=== PATIENT | male | born 1940 | race Two or more races ===

== ENCOUNTER 2022-03-03 11:50 | Inpatient (IN) | payer OTHER, MEDICAID ==
[~2022-03-03] VITALS: Ht 177.8 cm; Wt 79.5 kg
[~2022-03-03 11:50] MED LIST: ASPI1TAB20 PO; ATOR40TA52 PO; CLON0.2T PO; GLIM4TAB42 PO; HYDR12.56 PO; INSLISPI SC; LIS5T PO; NIFE90TA49 PO; OMEP20CA74 PO; POT10T PO
[2022-03-03] MEDS ORDERED: LACTATED RINGER'S 2,300 ML IV ONE (12:30)
[2022-03-03 12:50] LABS: Urine Bacteria NONE SEEN /hpf (None Seen); Urine Blood Negative /uL (Negative); Urine Specific Gravity 1.024 (1.001-1.035); Urine WBC 1 /hpf (0 - 3)
[2022-03-03 13:10] LABS: Basophils # (auto) 0 10 ^3/uL (0-0.2); Basophils % (auto) 0.3 % (0.0-2.0); Eosinophils # (auto) 0 10 ^3/uL (0-0.8); Eosinophils % (auto) 0.3 % (0.0-7.0); Hematocrit 42.9 % (41.0-53.0); Hemoglobin 14.6 g/dL (13.5-17.5); Lymphocytes # (auto) 0.7 10 ^3/uL (0.4-5.4); Mean Corpuscular Hemoglobin 28.9 pg (28.0-32.0); Mean Corpuscular Hgb Conc. 34.1 g/dL (32.0-36.0); Mean Corpuscular Volume 84.8 fL (80.0-100.0); Monocytes # (auto) 0.8 10 ^3/uL (0-1.3); Monocytes % (auto) 8.3 % (0.0-12.0); Neutrophils # (auto) 7.7 10 ^3/uL (1.6-8.6); Neutrophils % (auto) 83.1 % (37.0-80.0); Nucleated Red Blood Cells % 0.1 %; Red Blood Cells 5.06 10^6/uL (4.5-5.90); Red Cell Distribution Width 14.3 % (11.8-14.3); White Blood Cell 9.3 10^3/uL (4.4-10.8)
[2022-03-03 13:24] LABS: INR 1.22 (0.9-1.15); Partial Thromboplastin Time 28.3 sec (23.6-33.0)
[2022-03-03 13:26] LABS: Albumin 2.8 g/dL (3.4-5.0); Potassium 4.3 mmol/L (3.5-5.1)
[2022-03-03 13:29] LABS: BUN/Creatinine Ratio 30.3; Bilirubin, Total 0.5 mg/dL (0.2-1.0); Total Protein 6.1 g/dL (6.4-8.2)
[2022-03-03] MEDS ORDERED: IOHEXOL 350 MG/ML 100ML IJ ONE (14:15)
[2022-03-03] MEDS ORDERED: PROPRANOLOL HCL 1 MG/ML VIAL IV ONE (17:00)
[2022-03-03] MEDS ORDERED: NITROGLYCERIN 0.4 MG SL TAB SL PRN (18:15)
[2022-03-03] MEDS ORDERED: cefTRIAXone 1GM/50ML D5W 50 ML IV ONE (18:15)
[2022-03-03] MEDS ORDERED: MORPHINE SULFATE INJ 2 MG/ml SYRG IV PRN ×2 (18:15)
[2022-03-03] MEDS ORDERED: DEXTROSE (50%) 50ML SYRG IV PRN (18:15)
[2022-03-03] MEDS ORDERED: SOD CHL 0.45% 1,000 ML IV SCH (18:30)
[2022-03-03] MEDS: SODIUM CHLORIDE 0.9% 1,000 ML IV SCH (21:15)
[2022-03-03] MEDS ORDERED: dilTIAZem 25 MG/5 ML VIAL IV ONE ×2 (21:54→22:00)
[2022-03-03] MEDS: InsuLIN REG 1unit/0.01ml Soln (100units/ml) SC SCH (22:00)
[2022-03-03] MEDS: CARVEDILOL 12.5 MG TAB PO SCH (22:00)
[2022-03-03] MEDS ORDERED: ASPirin 325 MG TAB PO ONE (22:00)
[2022-03-03] MEDS: ACCU-CHEK COMFORT CURVE STRIP VI SCH (22:00)
[2022-03-03] MEDS: HEPARIN SODIUM (PORCINE) 5000 UNITS/ML 1ML VIAL SC SCH ×2 (22:00→22:42)
[2022-03-03] MEDS ORDERED: AMIODARONE HCL 150 MG in D5W 5% 100 ML IV ONE (22:30)
[2022-03-03] MEDS ORDERED: AMIODARONE 450mg/250ml AE 250 ML IV SCH (22:30)
[2022-03-03] MEDS ORDERED: AMIODARONE HCL (50 MG/ ML) 3 ML VIAL IV ONE (23:05)
[2022-03-04] MEDS: AMIODARONE HCL 200 MG TAB PO SCH ×3 (02:31→21:32)
[2022-03-04] MEDS ORDERED: AMIODARONE 450mg/250ml AE 250 ML IV SCH (04:30)
[2022-03-04 04:48] VITALS: BP 158/72
[2022-03-04 05:00] VITALS: BP 174/80
[2022-03-04] MEDS: hydrALAZINE HCL 20 MG/ML VL IV PRN ×2 (05:34→16:41)
[2022-03-04] MEDS: ACCU-CHEK COMFORT CURVE STRIP VI SCH ×4 (05:37→21:34)
[2022-03-04] MEDS: InsuLIN REG 1unit/0.01ml Soln (100units/ml) SC SCH ×4 (05:42→21:38)
[2022-03-04] MEDS: SODIUM CHLORIDE 0.9% 1,000 ML IV SCH ×2 (05:50→17:11)
[2022-03-04 08:25] VITALS: BP 146/64
[2022-03-04] MEDS: cefTRIAXone 1GM/50ML D5W 50 ML IV SCH (08:35)
[2022-03-04 08:54] LABS: Basophils # (auto) 0 10 ^3/uL (0-0.2); Basophils % (auto) 0.5 % (0.0-2.0); Eosinophils # (auto) 0.1 10 ^3/uL (0-0.8); Eosinophils % (auto) 1.4 % (0.0-7.0); Hematocrit 43.9 % (41.0-53.0); Hemoglobin 14.7 g/dL (13.5-17.5); Lymphocytes # (auto) 1.1 10 ^3/uL (0.4-5.4); Lymphocytes % (auto) 14.7 % (10.0-50.0); Mean Corpuscular Hemoglobin 28.4 pg (28.0-32.0); Mean Corpuscular Hgb Conc. 33.4 g/dL (32.0-36.0); Mean Corpuscular Volume 84.9 fL (80.0-100.0); Monocytes # (auto) 0.8 10 ^3/uL (0-1.3); Monocytes % (auto) 9.9 % (0.0-12.0); Neutrophils # (auto) 5.7 10 ^3/uL (1.6-8.6); Neutrophils % (auto) 73.5 % (37.0-80.0); Nucleated Red Blood Cells % 0.2 %; Red Blood Cells 5.17 10^6/uL (4.5-5.90); Red Cell Distribution Width 14.2 % (11.8-14.3); White Blood Cell 7.7 10^3/uL (4.4-10.8)
[2022-03-04 08:56] LABS: Albumin 2.8 g/dL (3.4-5.0); Calcium 7.9 mg/dL (8.5-10.1)
[2022-03-04 09:00] LABS: BUN/Creatinine Ratio 29.8
[2022-03-04] MEDS: ASPirin 81 mg TAB PO SCH (09:39)
[2022-03-04] MEDS: ATORVASTATIN 20 MG TAB PO SCH (09:40)
[2022-03-04] MEDS: CARVEDILOL 12.5 MG TAB PO SCH ×2 (09:40→21:33)
[2022-03-04] MEDS: HEPARIN SODIUM (PORCINE) 5000 UNITS/ML 1ML VIAL SC SCH ×2 (09:41→21:34)
[2022-03-04] MEDS ORDERED: ENOXAPARIN SOD 40 MG/0.4 ML SYRINGE SC SCH (10:00)
[2022-03-04] MEDS ORDERED: CITA10TA8 PO (10:32)
[2022-03-04] MEDS ORDERED: HYDR50TA15 PO (10:34)
[2022-03-04] MEDS ORDERED: ISOS60TA24 PO (10:34)
[2022-03-04] MEDS ORDERED: LABE200T7 PO (10:34)
[2022-03-04 12:31] VITALS: BP 139/55
[2022-03-04 16:37] VITALS: BP 161/68
[2022-03-04 21:22] VITALS: BP 166/78
[2022-03-05] MEDS: SODIUM CHLORIDE 0.9% 1,000 ML IV SCH ×2 (04:28→12:11)
[2022-03-05] MEDS: hydrALAZINE HCL 20 MG/ML VL IV PRN ×2 (04:28→16:59)
[2022-03-05 05:00] VITALS: BP 158/65
[2022-03-05] MEDS: AMIODARONE HCL 200 MG TAB PO SCH ×2 (06:17→10:14)
[2022-03-05] MEDS: InsuLIN REG 1unit/0.01ml Soln (100units/ml) SC SCH ×4 (06:18→22:50)
[2022-03-05] MEDS: ACCU-CHEK COMFORT CURVE STRIP VI SCH ×4 (06:18→22:49)
[2022-03-05 08:30] VITALS: BP 194/82
[2022-03-05] MEDS: ASPirin 81 mg TAB PO SCH (09:07)
[2022-03-05] MEDS: cefTRIAXone 1GM/50ML D5W 50 ML IV SCH (09:07)
[2022-03-05] MEDS: CARVEDILOL 12.5 MG TAB PO SCH ×2 (09:08→22:49)
[2022-03-05] MEDS: ATORVASTATIN 20 MG TAB PO SCH (09:08)
[2022-03-05] MEDS: HEPARIN SODIUM (PORCINE) 5000 UNITS/ML 1ML VIAL SC SCH ×2 (09:09→22:51)
[2022-03-05 12:30] VITALS: BP 139/64
[2022-03-05] MEDS ORDERED: LORazepam 2MG/ML-1ML VIAL IV ONE ×2 (13:15)
[2022-03-05 16:30] VITALS: BP 181/82
[2022-03-05] MEDS ORDERED: FUROSEMIDE 20 MG/2 ML VIAL IV ONE (20:15)
[2022-03-05 22:00] VITALS: BP 122/74
[2022-03-06] MEDS: hydrALAZINE HCL 20 MG/ML VL IV PRN (04:27)
[2022-03-06 05:29] VITALS: BP 178/67
[2022-03-06 06:15] VITALS: BP 177/69
[2022-03-06] MEDS: CARVEDILOL 12.5 MG TAB PO SCH ×2 (06:15→11:58)
[2022-03-06] MEDS: InsuLIN REG 1unit/0.01ml Soln (100units/ml) SC SCH ×2 (06:51→12:15)
[2022-03-06] MEDS: ACCU-CHEK COMFORT CURVE STRIP VI SCH ×2 (06:51→12:01)
[2022-03-06 06:58] LABS: Folate (Folic Acid) 20.61 ng/mL (5.38-24)
[2022-03-06 07:05] LABS: Cholesterol 77 mg/dL (< 200); HDL Cholesterol 35 mg/dL (40-59); LDL Cholesterol 37 mg/dL (< 100); Triglycerides 91 mg/dL (< 150)
[2022-03-06 09:18] VITALS: BP 151/54
[2022-03-06] MEDS ORDERED: AMIO200T33 PO (11:31)
[2022-03-06] MEDS ORDERED: CAR3125T PO (11:31)
[2022-03-06] MEDS: AMIODARONE HCL 200 MG TAB PO SCH (11:57)
[2022-03-06] MEDS: ASPirin 81 mg TAB PO SCH (11:57)
[2022-03-06] MEDS: HEPARIN SODIUM (PORCINE) 5000 UNITS/ML 1ML VIAL SC SCH (11:59)
[2022-03-06] MEDS: ATORVASTATIN 20 MG TAB PO SCH (12:02)
[2022-03-06 12:44] VITALS: BP 186/78
[2022-03-06 13:01] VITALS: BP 150/74
== END 2022-03-06 14:15 | disposition home or self-care (01) | DRG 71 ==
LOC: ER 11:50 → EDBD 11:50 → OVERFLOW 18:15 → TELE 03-04 00:26 → TELE-WESTW 03-04 02:00
PROVIDERS: ADMIT Registered Nurse; ATTEND Family Medicine
DX: G93.41 Metabolic encephalopathy (principal); I24.9 Acute ischemic heart disease, unspecified; E87.2 Acidosis; I69.354 Hemiplegia and hemiparesis following cerebral infarction affecting left non-dominant side; N17.9 Acute kidney failure, unspecified; I25.10 Atherosclerotic heart disease of native coronary artery without angina pectoris; I44.7 Left bundle-branch block, unspecified; I48.0 Paroxysmal atrial fibrillation; N18.31 Chronic kidney disease, stage 3a; E11.22 Type 2 diabetes mellitus with diabetic chronic kidney disease; F32.A Depression, unspecified; D72.829 Elevated white blood cell count, unspecified; E05.90 Thyrotoxicosis, unspecified without thyrotoxic crisis or storm; E11.40 Type 2 diabetes mellitus with diabetic neuropathy, unspecified; E78.00 Pure hypercholesterolemia, unspecified; E78.5 Hyperlipidemia, unspecified; F01.50 Vascular dementia, unspecified severity, without behavioral disturbance, psychotic disturbance, mood disturbance, and anxiety; Z20.822 Contact with and (suspected) exposure to COVID-19; I12.9 Hypertensive chronic kidney disease with stage 1 through stage 4 chronic kidney disease, or unspecified chronic kidney disease; I87.2 Venous insufficiency (chronic) (peripheral); R00.0 Tachycardia, unspecified; R94.4 Abnormal results of kidney function studies; R41.0 Disorientation, unspecified; Z79.82 Long term (current) use of aspirin; Z79.899 Other long term (current) drug therapy; Z82.49 Family history of ischemic heart disease and other diseases of the circulatory system; Z83.3 Family history of diabetes mellitus; Z79.4 Long term (current) use of insulin
CPT/HCPCS: 36415; 36600; 70450; 70551; 71045; 71275; 80053; 80061; 81001; 82607; 82746; 82805; 82962; 83036; 83605; 83735; 83880; 84439; 84443; 84484; 85025; 85379; 85610; 85730; 87040; 87081; 87086; 93005; 93306; 93886; 96361; 96365; 96374; 96375; 99291; G0378; J0696; J1815; J7060

== ENCOUNTER 2022-10-26 19:37 | Inpatient (IN) | payer OTHER ==
[~2022-10-26] VITALS: Ht 165.1 cm; Wt 80.0 kg
[~2022-10-26 19:37] MED LIST changes: +AMIO200T33 PO; +CAR3125T PO; +CITA10TA8 PO; -CLON0.2T PO; +HYDR50TA15 PO; +ISOS60TA24 PO; +LABE200T7 PO
[2022-10-26] MEDS ORDERED: IPRATROPIUM BROM 0.5 MG/2.5ML INH SOL NEB ONE (19:45)
[2022-10-26] MEDS ORDERED: BUDESONIDE (INHALATION) 0.5 MG/2 ML NEB NEB ONE (19:45)
[2022-10-26] MEDS ORDERED: ALBUTEROL SULF 2.5 MG/0.5ML(0.5%) NEB SOLN NEB ONE (19:45)
[2022-10-26 20:34] LABS: Basophils # (auto) 0.2 10 ^3/uL (0-0.2); Basophils % (auto) 1.4 % (0.0-2.0); Eosinophils # (auto) 0.1 10 ^3/uL (0-0.8); Eosinophils % (auto) 1.1 % (0.0-7.0); Hematocrit 44.3 % (41.0-53.0); Hemoglobin 14.5 g/dL (13.5-17.5); Lymphocytes # (auto) 0.6 10 ^3/uL (0.4-5.4); Lymphocytes % (auto) 5.1 % (10.0-50.0); Mean Corpuscular Hemoglobin 27.1 pg (28.0-32.0); Mean Corpuscular Hgb Conc. 32.7 g/dL (32.0-36.0); Mean Corpuscular Volume 82.9 fL (80.0-100.0); Monocytes # (auto) 0.6 10 ^3/uL (0-1.3); Monocytes % (auto) 4.9 % (0.0-12.0); Neutrophils # (auto) 11.2 10 ^3/uL (1.6-8.6); Neutrophils % (auto) 87.5 % (37.0-80.0); Nucleated Red Blood Cells % 0.1 %; Red Blood Cells 5.35 10^6/uL (4.5-5.90); Red Cell Distribution Width 14.9 % (11.8-14.3); White Blood Cell 12.8 10^3/uL (4.4-10.8)
[2022-10-26] MEDS ORDERED: DexAMETHasone SOD PHOS 10MG/1ML VIAL INJ IV ONE (20:45)
[2022-10-26] MEDS ORDERED: PIPERACILLIN-TAZOB 3.375GM 100 ML IV ONE (20:45)
[2022-10-26 20:52] LABS: Albumin 3.4 g/dL (3.4-5.0); BUN/Creatinine Ratio 20.4; Calcium 9.3 mg/dL (8.5-10.1); Magnesium 2.1 mg/dL (1.6-2.6)
[2022-10-26 20:55] LABS: Bilirubin, Total 0.5 mg/dL (0.2-1.0); Total Protein 6.9 g/dL (6.4-8.2)
[2022-10-26] MEDS ORDERED: IOHEXOL 350 MG/ML 100ML IJ ONE (21:05)
[2022-10-26] MEDS ORDERED: ACETAMINOPHEN 325 MG TAB PO PRN (22:15)
[2022-10-26] MEDS ORDERED: HYDROcodone-ACET 5/325MG TAB PO PRN (22:15)
[2022-10-26] MEDS ORDERED: SODIUM CHLORIDE 0.9% 1,000 ML IV SCH (22:15)
[2022-10-26] MEDS ORDERED: ONDANSETRON HCL 4 MG/2 ML VIAL IV PRN (22:15)
[2022-10-26] MEDS ORDERED: DEXTROSE (50%) 50ML SYRG IV PRN (22:15)
[2022-10-26] MEDS ORDERED: DOCUSATE SOD 100 MG CAP PO PRN (22:15)
[2022-10-26] MEDS ORDERED: NITROGLYCERIN 0.4 MG SL TAB SL PRN (23:45)
[2022-10-26] MEDS ORDERED: MORPHINE SULFATE INJ 2 MG/ml SYRG IV PRN (23:45)
[2022-10-27] MEDS: hydrALAZINE HCL 20 MG/ML VL IV PRN ×4 (02:01→23:49)
[2022-10-27 02:41] VITALS: BP 156/58
[2022-10-27 03:16] LABS: Urine Bacteria FEW /hpf (None Seen); Urine Blood Negative /uL (Negative); Urine Specific Gravity 1.043 (1.001-1.035); Urine WBC 2 /hpf (0 - 3)
[2022-10-27 05:44] LABS: Basophils # (auto) 0 10 ^3/uL (0-0.2); Basophils % (auto) 0.2 % (0.0-2.0); Eosinophils # (auto) 0 10 ^3/uL (0-0.8); Hematocrit 42.2 % (41.0-53.0); Hemoglobin 13.9 g/dL (13.5-17.5); Lymphocytes # (auto) 0.3 10 ^3/uL (0.4-5.4); Lymphocytes % (auto) 3.4 % (10.0-50.0); Mean Corpuscular Hemoglobin 27.1 pg (28.0-32.0); Mean Corpuscular Volume 82.1 fL (80.0-100.0); Monocytes # (auto) 0.1 10 ^3/uL (0-1.3); Monocytes % (auto) 1.7 % (0.0-12.0); Neutrophils # (auto) 7.9 10 ^3/uL (1.6-8.6); Neutrophils % (auto) 94.7 % (37.0-80.0); Red Blood Cells 5.14 10^6/uL (4.5-5.90); Red Cell Distribution Width 15.1 % (11.8-14.3); White Blood Cell 8.4 10^3/uL (4.4-10.8)
[2022-10-27 06:06] LABS: Potassium 4.1 mmol/L (3.5-5.1)
[2022-10-27 06:09] LABS: Albumin 3.2 g/dL (3.4-5.0); Calcium 9.1 mg/dL (8.5-10.1)
[2022-10-27 06:12] LABS: Bilirubin, Total 0.6 mg/dL (0.2-1.0); Total Protein 7.2 g/dL (6.4-8.2)
[2022-10-27] MEDS: ACCU-CHEK COMFORT CURVE STRIP VI SCH ×4 (07:06→22:48)
[2022-10-27] MEDS: InsuLIN REG 1unit/0.01ml Soln (100units/ml) SC SCH ×4 (07:11→22:53)
[2022-10-27] MEDS ORDERED: cefTRIAXone 1GM/50ML D5W 50 ML IV SCH (09:00)
[2022-10-27] MEDS: FAMOTIDINE (10MG/ML) 2ML VL IV SCH ×2 (10:00→22:51)
[2022-10-27] MEDS: DexAMETHasone SOD PHOS 10MG/1ML VIAL INJ IV SCH (12:24)
[2022-10-27] MEDS: ENOXAPARIN SOD 40 MG/0.4 ML SYRINGE SC SCH (12:25)
[2022-10-27] MEDS: amLODIPine BESYLATE 5 MG TAB PO SCH (22:23)
[2022-10-28] MEDS: ACCU-CHEK COMFORT CURVE STRIP VI SCH ×4 (06:47→21:38)
[2022-10-28] MEDS: InsuLIN REG 1unit/0.01ml Soln (100units/ml) SC SCH ×4 (06:49→21:50)
[2022-10-28] MEDS: amLODIPine BESYLATE 5 MG TAB PO SCH (10:08)
[2022-10-28] MEDS: METOPROLOL TARTRATE 25 MG TAB PO SCH ×2 (10:09→21:51)
[2022-10-28] MEDS: FAMOTIDINE (10MG/ML) 2ML VL IV SCH ×2 (10:09→21:52)
[2022-10-28] MEDS: ENOXAPARIN SOD 40 MG/0.4 ML SYRINGE SC SCH (10:09)
[2022-10-28] MEDS: DexAMETHasone SOD PHOS 10MG/1ML VIAL INJ IV SCH (10:09)
[2022-10-28] MEDS ORDERED: guaiFENesin-DM 100/10mg/5ml SYR PO PRN (13:15)
[2022-10-28] MEDS: IPRATROPIUM BROM 0.5 MG/2.5ML INH SOL NEB PRN ×2 (13:29→21:51)
[2022-10-28] MEDS: ALBUTEROL SULF 2.5 MG/0.5ML(0.5%) NEB SOLN NEB PRN ×2 (13:30→21:51)
[2022-10-28] MEDS ORDERED: ALBUTEROL MEDNEB 2.5 mg/3ml NEB ONE (20:27)
[2022-10-28] MEDS ORDERED: METOPROLOL TARTRATE 1MG/1ML-5ML VIAL IV PRN (23:45)
[2022-10-29 01:23] VITALS: BP 140/77
[2022-10-29] MEDS ORDERED: DOXYCYCLINE 100MG/250ML 250 ML IV SCH (03:00)
[2022-10-29] MEDS: ACCU-CHEK COMFORT CURVE STRIP VI SCH ×3 (06:34→16:46)
[2022-10-29] MEDS: InsuLIN REG 1unit/0.01ml Soln (100units/ml) SC SCH ×3 (06:41→16:57)
[2022-10-29] MEDS ORDERED: ALBUTEROL MEDNEB 2.5 mg/3ml NEB ONE (07:27)
[2022-10-29] MEDS: IPRATROPIUM BROM 0.5 MG/2.5ML INH SOL NEB PRN (07:31)
[2022-10-29] MEDS: ALBUTEROL SULF 2.5 MG/0.5ML(0.5%) NEB SOLN NEB PRN (07:33)
[2022-10-29 08:00] VITALS: BP 180/80
[2022-10-29 08:30] VITALS: BP 134/56
[2022-10-29] MEDS: DexAMETHasone SOD PHOS 10MG/1ML VIAL INJ IV SCH (09:44)
[2022-10-29] MEDS: amLODIPine BESYLATE 5 MG TAB PO SCH (09:44)
[2022-10-29] MEDS: FAMOTIDINE (10MG/ML) 2ML VL IV SCH (09:44)
[2022-10-29] MEDS: ENOXAPARIN SOD 40 MG/0.4 ML SYRINGE SC SCH (09:45)
[2022-10-29] MEDS: METOPROLOL TARTRATE 25 MG TAB PO SCH (09:46)
[2022-10-29] MEDS: hydrALAZINE HCL 20 MG/ML VL IV PRN (12:04)
[2022-10-29 12:30] VITALS: BP 191/80
[2022-10-29] MEDS ORDERED: levoFLOXacin 750MG 150 ML IV SCH (13:45)
[2022-10-29] MEDS ORDERED: METH4PAK PO (13:54)
[2022-10-29] MEDS ORDERED: DEXT1SYP6 PO (13:54)
[2022-10-29] MEDS ORDERED: LEVO750T8 PO (13:54)
[2022-10-29] MEDS ORDERED: ALBUAER3 IN (13:54)
[2022-10-29] MEDS ORDERED: NIFEdipine ER 30 MG TAB PO SCH (14:00)
[2022-10-29 15:13] VITALS: BP 141/61
[2022-10-29 16:30] VITALS: BP 154/80
== END 2022-10-29 18:40 | disposition home health service (06) | DRG 871 ==
LOC: ER 19:37 → EDBD 19:37 → TELE 23:46 → TELE-WESTW 10-28 23:17
PROVIDERS: ADMIT Nurse Practitioner Family; ATTEND Internal Medicine
DX: A41.9 Sepsis, unspecified organism (principal); J96.01 Acute respiratory failure with hypoxia; J44.1 Chronic obstructive pulmonary disease with (acute) exacerbation; J45.901 Unspecified asthma with (acute) exacerbation; J20.9 Acute bronchitis, unspecified; F32.9 Major depressive disorder, single episode, unspecified; E11.9 Type 2 diabetes mellitus without complications; E78.5 Hyperlipidemia, unspecified; I11.0 Hypertensive heart disease with heart failure; I50.9 Heart failure, unspecified; Z20.822 Contact with and (suspected) exposure to COVID-19; Z83.3 Family history of diabetes mellitus; Z86.73 Personal history of transient ischemic attack (TIA), and cerebral infarction without residual deficits; E78.00 Pure hypercholesterolemia, unspecified; D72.829 Elevated white blood cell count, unspecified
CPT/HCPCS: 36415; 36600; 71045; 71275; 80053; 81001; 82805; 82962; 83036; 83605; 83735; 83880; 84484; 85025; 85379; 87040; 87426; 87804; 93005; 93306; 93970; 94640; 96361; 96365; 96375; G0378; J0696; J1100; J1815; J1956; J2543; J3490

== ENCOUNTER 2023-01-30 15:14 | Inpatient (IN) | payer OTHER, MEDICAID ==
[~2023-01-30] VITALS: Ht 157.5 cm; Wt 72.3 kg
[~2023-01-30 15:14] MED LIST changes: +ALBUAER3 IN; +DEXT1SYP6 PO; -HYDR12.56 PO; -LABE200T7 PO; +LEVO750T8 PO; +METH4PAK PO
[2023-01-30] MEDS ORDERED: cloNIDine HCL 0.1 MG TAB PO ONE (16:15)
[2023-01-30 16:21] LABS: Basophils # (auto) 0.1 10 ^3/uL (0-0.2); Basophils % (auto) 0.8 % (0.0-2.0); Eosinophils # (auto) 0 10 ^3/uL (0-0.8); Eosinophils % (auto) 0.1 % (0.0-7.0); Hemoglobin 16.5 g/dL (13.5-17.5); Mean Corpuscular Volume 78.1 fL (80.0-100.0); Neutrophils # (auto) 7.4 10 ^3/uL (1.6-8.6); White Blood Cell 8.9 10^3/uL (4.4-10.8)
[2023-01-30 16:22] LABS: Lymphocytes # (auto) 0.9 10 ^3/uL (0.4-5.4); Lymphocytes % (auto) 10.6 % (10.0-50.0); Mean Corpuscular Hemoglobin 25.8 pg (28.0-32.0); Monocytes # (auto) 0.4 10 ^3/uL (0-1.3); Neutrophils % (auto) 83.5 % (37.0-80.0); Nucleated Red Blood Cells % 0.7 %; Red Cell Distribution Width 16.2 % (11.8-14.3)
[2023-01-30 16:41] LABS: INR 1.09 (0.9-1.15); Partial Thromboplastin Time 29.1 sec (24.6-33.4)
[2023-01-30 16:50] LABS: Albumin 3.8 g/dL (3.4-5.0); BUN/Creatinine Ratio 12.7 (10.0-20.0); Calcium 9.4 mg/dL (8.5-10.1); Potassium 3.8 mmol/L (3.5-5.1)
[2023-01-30 16:53] LABS: Bilirubin, Total 0.5 mg/dL (0.2-1.0); Total Protein 7.8 g/dL (6.4-8.2)
[2023-01-30] MEDS ORDERED: ONDANSETRON HCL 4 MG/2 ML VIAL IV ONE ×2 (17:00→20:45)
[2023-01-30 17:29] LABS: Urine Bacteria NONE SEEN /hpf (None Seen); Urine Blood Negative /uL (Negative); Urine Mucus FEW (None Seen); Urine Specific Gravity 1.015 (1.001-1.035); Urine WBC 4 /hpf (0 - 3)
[2023-01-30] MEDS ORDERED: MORPHINE SULFATE INJ 2 MG/ml SYRG IV ONE (20:00)
[2023-01-30] MEDS ORDERED: HYDROcodone-ACET 5/325MG TAB PO PRN (21:30)
[2023-01-30] MEDS ORDERED: MORPHINE SULFATE INJ 2 MG/ml SYRG IV PRN ×2 (21:30)
[2023-01-30] MEDS ORDERED: ACETAMINOPHEN 325 MG TAB PO PRN (21:30)
[2023-01-30] MEDS ORDERED: NITROGLYCERIN 0.4 MG SL TAB SL PRN (21:30)
[2023-01-30] MEDS ORDERED: DEXTROSE (50%) 50ML SYRG IV PRN (21:30)
[2023-01-30] MEDS ORDERED: ONDANSETRON HCL 4 MG/2 ML VIAL IV PRN (21:30)
[2023-01-30 22:07] LABS: Cholesterol 151 mg/dL (< 200)
[2023-01-30 22:09] LABS: HDL Cholesterol 65 mg/dL (40-59); LDL Cholesterol 74 mg/dL (< 100); Triglycerides 69 mg/dL (< 150)
[2023-01-31] MEDS: cloNIDine HCL 0.1 MG TAB PO SCH ×4 (02:15→22:00)
[2023-01-31] MEDS: AMIODARONE HCL 200 MG TAB PO SCH ×3 (02:15→22:00)
[2023-01-31] MEDS: ACCU-CHEK COMFORT CURVE STRIP VI SCH ×5 (02:22→22:00)
[2023-01-31] MEDS: InsuLIN REG 1unit/0.01ml Soln (100units/ml) SC SCH ×5 (02:22→22:00)
[2023-01-31 05:59] LABS: Basophils # (auto) 0.1 10 ^3/uL (0-0.2); Basophils % (auto) 0.7 % (0.0-2.0); Eosinophils # (auto) 0.1 10 ^3/uL (0-0.8); Eosinophils % (auto) 0.6 % (0.0-7.0); Hematocrit 48.9 % (41.0-53.0); Hemoglobin 16.4 g/dL (13.5-17.5); Lymphocytes % (auto) 19.9 % (10.0-50.0); Mean Corpuscular Hemoglobin 26.1 pg (28.0-32.0); Mean Corpuscular Hgb Conc. 33.5 g/dL (32.0-36.0); Mean Corpuscular Volume 77.9 fL (80.0-100.0); Monocytes # (auto) 1.1 10 ^3/uL (0-1.3); Monocytes % (auto) 10.7 % (0.0-12.0); Neutrophils # (auto) 6.8 10 ^3/uL (1.6-8.6); Neutrophils % (auto) 68.1 % (37.0-80.0); Red Blood Cells 6.28 10^6/uL (4.5-5.90); Red Cell Distribution Width 15.8 % (11.8-14.3); White Blood Cell 9.9 10^3/uL (4.4-10.8)
[2023-01-31 06:17] LABS: Albumin 3.3 g/dL (3.4-5.0); BUN/Creatinine Ratio 14.8 (10.0-20.0); Calcium 9.2 mg/dL (8.5-10.1); Potassium 3.8 mmol/L (3.5-5.1)
[2023-01-31 06:19] LABS: Bilirubin, Total 0.6 mg/dL (0.2-1.0); Total Protein 7.6 g/dL (6.4-8.2)
[2023-01-31] MEDS ORDERED: dilTIAZem 25 MG/5 ML VIAL IV ONE (06:30)
[2023-01-31] MEDS ORDERED: amLODIPine BESYLATE 5 MG TAB PO SCH ×2 (10:00→18:00)
[2023-01-31] MEDS ORDERED: NIFEdipine ER 30 MG TAB PO SCH (10:00)
[2023-01-31] MEDS: CITALOPRAM HYDROBR 20 MG TAB PO SCH (11:22)
[2023-01-31] MEDS: ENOXAPARIN SOD 40 MG/0.4 ML SYRINGE SC SCH (11:22)
[2023-01-31] MEDS: ASPirin-EC 81 mg tab PO SCH (11:23)
[2023-01-31] MEDS: ATORVASTATIN 20 MG TAB PO SCH (11:24)
[2023-01-31] MEDS ORDERED: LOSA25TA38 PO (12:29)
[2023-01-31 18:35] VITALS: BP 186/83
[2023-01-31 19:09] VITALS: BP 170/82
[2023-01-31 20:00] VITALS: BP 141/63
[2023-01-31] MEDS ORDERED: LOS25T (21:14)
[2023-01-31] MEDS ORDERED: [UNRECOGNIZED DRUG - CODE] PO (21:45)
[2023-01-31] MEDS ORDERED: VITA400T4 PO (21:45)
[2023-01-31] MEDS ORDERED: ZINC220C8 PO (21:45)
[2023-01-31] MEDS ORDERED: FERR1TAB36 PO (21:45)
[2023-01-31] MEDS ORDERED: DIGE1CAP PO (21:45)
[2023-01-31] MEDS ORDERED: VITATAB9 OR (21:45)
[2023-01-31] MEDS ORDERED: COBA1000 SL (21:45)
[2023-01-31] MEDS ORDERED: INSU1INJ19 SC (21:45)
[2023-01-31 22:00] VITALS: BP 141/63
[2023-01-31] MEDS ORDERED: CARVEDILOL 3.125 MG TAB PO SCH (22:00)
[2023-02-01 05:00] VITALS: BP 102/50
[2023-02-01] MEDS: cloNIDine HCL 0.1 MG TAB PO SCH ×2 (05:10→14:00)
[2023-02-01] MEDS: ACCU-CHEK COMFORT CURVE STRIP VI SCH ×3 (06:33→17:00)
[2023-02-01] MEDS: InsuLIN REG 1unit/0.01ml Soln (100units/ml) SC SCH ×3 (06:33→17:00)
[2023-02-01 08:55] VITALS: BP 105/57
[2023-02-01] MEDS ORDERED: LOSARTAN POTASSIUM 25 MG TAB PO SCH (10:00)
[2023-02-01] MEDS: ASPirin-EC 81 mg tab PO SCH (10:50)
[2023-02-01] MEDS: AMIODARONE HCL 200 MG TAB PO SCH (10:51)
[2023-02-01] MEDS: CITALOPRAM HYDROBR 20 MG TAB PO SCH (10:51)
[2023-02-01] MEDS: ATORVASTATIN 20 MG TAB PO SCH (10:51)
[2023-02-01] MEDS: ENOXAPARIN SOD 40 MG/0.4 ML SYRINGE SC SCH (10:52)
[2023-02-01] MEDS ORDERED: NIFE90TA49 PO (12:37)
[2023-02-01] MEDS ORDERED: AMLO-496 PO (12:37)
[2023-02-01] MEDS ORDERED: LOS25T PO (12:37)
[2023-02-01 13:00] VITALS: BP 106/50
[2023-02-01 16:29] VITALS: BP 106/50
[2023-02-01 16:48] VITALS: BP 105/47
== END 2023-02-01 17:21 | disposition home or self-care (01) | DRG 305 ==
LOC: EDBD 15:14 → ER 15:14 → TELE 21:36 → TELE-EAST 01-31 18:40
PROVIDERS: ADMIT Registered Nurse; ATTEND Hospitalist
DX: I16.0 Hypertensive urgency (principal); J44.9 Chronic obstructive pulmonary disease, unspecified; I10 Essential (primary) hypertension; E78.00 Pure hypercholesterolemia, unspecified; F32.A Depression, unspecified; E11.9 Type 2 diabetes mellitus without complications; Z86.73 Personal history of transient ischemic attack (TIA), and cerebral infarction without residual deficits; Z88.8 Allergy status to other drugs, medicaments and biological substances
CPT/HCPCS: 36415; 70450; 71045; 80053; 80061; 81001; 82088; 82962; 83036; 83735; 83880; 84244; 84443; 84484; 85025; 85610; 85730; 93005; 96365; 96372; 96375; 96376; 97110; 97116; 97163; 97530; G0378; J1815; J2405

== ENCOUNTER 2025-02-03 12:40 | Inpatient (IN) | payer OTHER, MEDICAID ==
[~2025-02-03] VITALS: Ht 149.9 cm; Wt 74.0 kg
[~2025-02-03 12:40] MED LIST changes: -ALBUAER3 IN; -AMIO200T33 PO; +AMLO1TAB23 PO; -CAR3125T PO; +CLON0.3T PO; +COBA1000 SL; -DEXT1SYP6 PO; +DIGE1CAP PO; +DONE10TA91 PO; +FERR1TAB36 PO; +FLUT1AER17 INH; -GLIM4TAB42 PO; -HYDR50TA15 PO; +INSU1INJ19 SC; +IRBE300T43 PO; +ISOS1TAB29 PO; -ISOS60TA24 PO; -LEVO750T8 PO; -LIS5T PO; +LORA-1123 PO; +LOS25T PO; -METH4PAK PO; -NIFE90TA49 PO; +NIFE90TA75 PO; +OMEG-86 PO; -POT10T PO; +PRAZ2CAP2 PO; +TIRZ15IN SC; +[UNRECOGNIZED DRUG - CODE] PO
[2025-02-03] MEDS: ASPirin 325 MG TAB PO ONE (14:29)
[2025-02-03] MEDS: NITROGLYCERIN 2% OINT 1GM PKG TD ONE (14:30)
[2025-02-03 14:32] LABS: Basophils # (auto) 0 10 ^3/uL (0-0.2); Basophils % (auto) 0.6 % (0.0-2.0); Eosinophils # (auto) 0 10 ^3/uL (0-0.8); Eosinophils % (auto) 0.5 % (0.0-7.0); Hemoglobin 17.8 g/dL (13.5-17.5); Lymphocytes # (auto) 1.1 10 ^3/uL (0.4-5.4); Lymphocytes % (auto) 14.6 % (10.0-50.0); Mean Corpuscular Hemoglobin 28.6 pg (28.0-32.0); Mean Corpuscular Hgb Conc. 33.6 g/dL (32.0-36.0); Mean Corpuscular Volume 85.3 fL (80.0-100.0); Monocytes # (auto) 0.5 10 ^3/uL (0-1.3); Monocytes % (auto) 6.5 % (0.0-12.0); Neutrophils # (auto) 5.8 10 ^3/uL (1.6-8.6); Neutrophils % (auto) 77.8 % (37.0-80.0); Nucleated Red Blood Cells % 0.7 %; Platelet Count (auto) 172 10^3/uL (140-450); Red Blood Cells 6.22 10^6/uL (4.5-5.90); Red Cell Distribution Width 14.8 % (11.8-14.3); White Blood Cell 7.5 10^3/uL (4.4-10.8)
[2025-02-03 14:34] LABS: Chloride 101 mmol/L (98-107); Sodium 137 mmol/L (136-145)
[2025-02-03 14:35] LABS: Anion Gap 9 (5-15); Calcium 10.2 mg/dL (8.7-10.4); Carbon Dioxide 27 mmol/L (20-31)
[2025-02-03 14:40] LABS: BUN/Creatinine Ratio 11.6 (10.0-20.0); Blood Urea Nitrogen 13 mg/dL (9-23)
[2025-02-03 14:43] LABS: Glucose 156 mg/dL (74-106)
--- NOTE | 2025-02-03 14:56 | DVH ---
EXAM: XY CHEST PORTABLE Indication: cp Technique: Single frontal view of the chest was obtained Comparison: XY CHEST PORTABLE on DOS: 01/30/23, CHEST PORTABLE on DOS: 10/26/22, CXRP on DOS: 10/26/22, CXRP on DOS: 03/03/22, CHEST PORTABLE on DOS: 03/03/22 FINDINGS: Lines and Tubes: None Lungs: No focal consolidation. Pleura: No effusion. No pneumothorax. Cardiomediastinal contours: Cardiomegaly. Atherosclerotic vascular calcifications of the thoracic ao rta are noted. Bones: No acute osseous abnormality. IMPRESSION: Cardiomegaly. No acute cardiopulmonary disease.
[2025-02-03] MEDS: cloNIDine HCL 0.1 MG TAB PO ONE (16:16)
--- NOTE | 2025-02-03 16:29 | ED.PDOC ---
History of Present Illness HPI Comments 84M presents to the Er w/ no prior Hx associated to the c/c of CP x 2 days. Pt reports on having N/. PMHx of High Lipids, HTN, DM, CHF, Depression and CVAx6 months ago. Denies chills, fever, N/V/D, SOB No other associated symptoms, modifiers, recent injuries or sick contacts present at this time. Chief Complaint: Chest Pain Time Seen by MD: 14:00 Primary Care Provider: UNKNOWN Reviewed Notes: Nurses Notes, Medications, Allergies Allergies: Coded Allergies: Carvedilol (Verified Allergy, Unknown, 01/30/23) Ezetimibe (Verified Allergy, Unknown, 01/30/23) Hydralazine (Verified Allergy, Unknown, 01/30/23) Isosorbide Nitrate (Verified Allergy, Unknown, 01/30/23) Labetalol (Verified Allergy, Unknown, 01/30/23) Lactulose (Verified Allergy, Unknown, 01/30/23) Lisinopril (Verified Allergy, Unknown, 01/30/23) Home Meds Active Scripts Amlodipine Besylate (Amlodipine Besylate) 10 Mg Tab, 1 TAB PO QPM, #90 TAB 1 Refill Prov:ARLEN LANGE MD 02/01/23 Losartan Potassium (Losartan Potassium) 25 Mg Tab, 25 MG PO DAILY, #60 TAB Prov:ARLEN LANGE MD 02/01/23 Nifedipine (Nifedipine Er) 90 Mg Tab, 1 TAB PO DAILY, #60 TAB 5 Refills Prov:ARLEN LANGE MD 02/01/23 Reported Medications Ferrous Sulfate (Iron (Ferrous Sulfate)) 50 Mg Tab, 50 MG PO, TAB 01/31/23 Cobalamine Combinations (B-12 1000) 1,000 Mcg Sub, 1000 MCG SL, INJ 01/31/23 Digestive Enzymes (Digestive Enzyme) 1 Cap Cap, 1 CAP PO, CAP 01/31/23 Nutritional Supplements (Knott Oil) 1,000 Mg Cap, 1000 MG PO, CAP 01/31/23 Insulin Glargine (Basaglar Kwikpen) 100 Unit/Ml Inj, 13 UNIT SC 01/31/23 Isosorbide Mononitrate (Isosorbide Mononitrate Er) 60 Mg Tab, 1 TAB PO TID, #30 TAB 5 Refills 03/04/22 Citalopram Hydrobromide (Celexa) 10 Mg Tab, 2 TAB PO DAILY, #30 TAB 2 Refills 03/04/22 Insulin Lispro (Human) (Humalog) 100 Mg/Ml Inj, 0 SC TIDWM, INJ 4 UNITS SC BS 180-220 9 UNITS SC BS ABOVE 251 07/22/15 Atorvastatin Calcium (ATORVASTATIN CALCIUM) 40 Mg Tab, 1 TAB PO DAILY, #30 TAB 5 Refills 07/22/15 Aspirin (Aspir-81) 81 Mg Tab, 1 TAB PO DAILY, #30 TAB 5 Refills 07/22/15 Omeprazole (PRILOSEC) 20 Mg Cap, 1 CAP PO DAILY, #90 CAP 1 Refill 07/22/15 Information Source: Patient Mode of Arrival: EMS Severity: Moderate Timing: Days Duration: Since onset, Days Prehospital treatment: None Past Medical History PAST MEDICAL HISTORY: CHF, CVA (6 months ago), Depression, DM, High Lipids, HTN Surgical History: Denies all surgeries Family History Family History: Reviewed,noncontributory to illness, Unknown Social History Smoker: Non-Smoker Alcohol: Denies ETOH Use Drugs: Denies Drug Use Lives In: Home Constitutional: denies: chills, diaphoresis, fatigue, fever, malaise, sweats, weakness, others EENTM: denies: blurred vision, double vision, ear bleeding, ear discharge, ear drainage, ear pain, ear ringing, eye pain, eye redness, hearing loss, mouth pain, mouth swelling, nasal discharge, nose bleeding, nose congestion, nose pain, photophobia, tearing, throat pain, throat swelling, voice changes, others Respiratory: denies: cough, hemoptysis, orthopnea, SOB at rest, shortness of breath, SOB with excertion, stridor, wheezing, others Cardiovascular: reports: chest pain; denies: dizzy spells, diaphoresis, Dyspnea on exertion, edema, irregular heart beat, left arm pain, lightheadedness, palpitations, PND, syncope, others Gastrointestinal: denies: abdomen distended, abdominal pain, blood streaked bowels, constipated, diarrhea, dysphagia, difficulty swallowing, hematemesis, melena, nausea, poor appetite, poor fluid intake, rectal bleeding, rectal pain, vomiting, others Genitourinary: denies: burning, dysuria, flank pain, frequency, hematuria, incontinence, penile discharge, penile sore, pain, testicle pain, testicle swelling, urgency, others Neurological: denies: dizziness, fainting, headache, left sided numbness, left sided weakness, numbness, paresthesia, pre-existing deficit, right sided numbness, right sided weakness, seizure, speech problems, tingling, tremors, we akness, others Musculoskeletal: denies: back pain, gout, joint pain, joint swelling, muscle pain, muscle stiffness, neck pain, others Integumetry: denies: bruises, change in color, change in hair/nails, dryness, laceration, lesions, lumps, rash, wounds, others Allergic/Immunocompromised: denies: Difficulty Healing, Frequent Infections, Hives, Itching, others Hematologic/Lymphatic: denies: anemia, blood clots, easy bleeding, easy bruising, swollen glands, others Endocrine: denies: excessive hunger, excessive sweating, excessive thirst, excessive urination, flushing, intolerance to cold, intolerance to heat, unexplained weight gain, unexplained weight loss, others Psychiatric: denies: anxiety, bipolar disorder, depression, hopeless, panic disorder, schizophrenia, sleepless, suicidal, others All Other Systems: Reviewed and Negative Physical Exam Exam Comments Slurred Speech due from prior CVA General Appearance: No Apparent Distress, Normal HEENT: Normal ENT Inspection, Pharynx Normal, TMs Normal Neck: Full Range of Motion, Non-Tender, Normal, Normal Inspection Respiratory: Chest Non-Tender, Lungs Clear, No Accessory Muscle Use, No Respiratory Distress, Normal Breath Sounds Cardiovascular: No Edema, No JVD, No Murmur, No Gallop, Normal Peripheral Pulses, Regular Rate/Rhythm Breast Exam: Deferred Gastrointestinal: No Organomegaly, Non Tender, No Pulsatile Mass, Normal Bowel Sounds, Soft Genitalia: Deferred Pelvic: Deferred Rectal: Deferred Extremities: No calf tenderness, Normal capillary refill, Normal inspection, Normal range of motion, Non-tender, No pedal edema Musculoskeletal : Apperance: Normal Neurologic: Alert, passenger car inspector II-XII nml as Tested, No Motor Deficits, Normal Affect, Normal Mood, No Sensory Deficits Cerebellar Function: Normal Reflexes: Normal Skin: Dry, Normal Color, Warm Lymphatic: No Adenopathy Was a procedure done? Was a procedure done?: No Differential Dx Considerations may include: ami, unstable angina, chf, chest wall pain, ptx, pe, pneumonia, htn emergency X-Ray, Labs, Meds, VS Vital Signs Date Time Temp Pulse Resp B/P (MAP) Pulse Ox O2 Delivery O2 Flow Rate FiO2 02/03/25 17:00 98.2 95 20 184/96 (125) 97 98.2 02/03/25 17:00 184/96 02/03/25 16:16 212/100 02/03/25 16:00 91 02/03/25 15:30 178/94 02/03/25 15:00 98.0 91 16 185/92 (123) 95 98.0 02/03/25 14:30 208/89 02/03/25 13:46 71 02/03/25 13:17 68 02/03/25 13:15 98.0 68 16 210/83 (125) 91 98.0 02/03/25 13:01 Room Air* 0 21 02/03/25 12:45 60 02/03/25 12:43 98.2 68 18 184/102 (129) 91 98.2 Lab Test 02/03/25 16:54 02/03/25 14:09 02/03/25 13:15 Range/Units Troponin I High Sensitivity Pending 47 43 </=54 ng/L White Blood Count 7.5 4.4-10.8 10^3/uL Red Blood Count 6.22 H 4.5-5.90 10^6/uL Hemoglobin 17.8 H 13.5-17.5 g/dL Hematocrit 53.0 41.0-53.0 % Mean Corpuscular Volume 85.3 80.0-100.0 fL Mean Corpuscular Hemoglobin 28.6 28.0-32.0 pg Mean Corpuscular Hemoglobin Concent 33.6 32.0-36.0 g/dL Red Cell Distribution Width 14.8 H 11.8-14.3 % Platelet Count 172 140-450 10^3/uL Mean Platelet Volume 9.2 6.9-10.8 fL Neutrophils (%) (Auto) 77.8 37.0-80.0 % Lymphocytes (%) (Auto) 14.6 10.0-50.0 % Monocytes (%) (Auto) 6.5 0.0-12.0 % Eosinophils (%) (Auto) 0.5 0.0-7.0 % Basophils (%) (Auto) 0.6 0.0-2.0 % Neutrophils # (Auto) 5.8 1.6-8.6 10 ^3/uL Lymphocytes # (Auto) 1.1 0.4-5.4 10 ^3/uL Monocytes # (Auto) 0.5 0-1.3 10 ^3/uL Eosinophils # (Auto) 0 0-0.8 10 ^3/uL Basophils # (Auto) 0 0-0.2 10 ^3/uL Nucleated Red Blood Cells 0.7 % Sodium Level 137 136-145 mmol/L Potassium Level 4.0 3.5-5.1 mmol/L Chloride Level 101 98-107 mmol/L Carbon Dioxide Level 27 20-31 mmol/L Anion Gap 9 5-15 Blood Urea Nitrogen 13 9-23 mg/dL Creatinine 1.12 0.700-1.30 mg/dL Glomerular Filtration Rate Calc 65 >90 mL/min BUN/Creatinine Ratio 11.6 10.0-20.0 Serum Glucose 156 H 74-106 mg/dL Calcium Level 10.2 8.7-10.4 mg/dL Current Medications Medications (Trade) Dose Ordered Sig/Lucy Route Start Time Stop Time Status Last Admin Nitroglycerin (Nitro-Bid) 1 pkg ONCE ONCE TD 02/03/25 14:15 02/03/25 14:16 DC 02/03/25 14:30 Aspirin 325 mg ONCE ONCE PO 02/03/25 14:15 02/03/25 14:16 DC 02/03/25 14:29 Clonidine HCl (Catapres Tablet) 0.1 mg ONCE ONCE PO 02/03/25 16:15 02/03/25 16:16 DC 02/03/25 16:16 Time of 1ST Reevaluation: 14:30 Reevaluation 1ST: Unchanged Patient Education/Counseling: Diagnosis, Treatment, Prognosis, Need For Follow Up Family Education/Counseling: No Family Present Additional Information The following tests were ordered, and results were reviewed by me: PHA, LAB, XY, EKG Additional Information was gathered from interviewing the following independent historians: 01/30/23 I reviewed and agreed with the following test results read by other providers:XY I discussed treatment and results with medical personnel and: Patient Comprehensive systems review obtained and negative except for what is stated in the HPI. Departure 1 Departure Time of Disposition: 17:24 Impression: Primary Impression: Unstable angina Additional Impression: Hypertensive emergency Disposition: 09 ADMITTED INPATIENT Admit to: ICU Condition: Serious Discharged With: Self Critical Care Note Critical Care Time?: Yes (55 min-critical care time only) Critical care comment: Due to concerns for patients condition deteriorating, the care required my highest level of attention and readiness to intervene. I assessed the patient, reviewed the medical records, ordered the appropriate tests and treatments, then reassessed for results and responsiveness. I communicated with medical personnel and consultants and formulated a plan of care. Total critical care time excludes any procedures Stability Stability form required: No Heart Score Heart Score: Heart Score Response (Comments) Value History Moderate Suspicious 1 EKG Normal 0 Age >65 2 Risk Factors >3 or Hx ASHD 2 Troponin Normal limit 0 Total 5 I personally scribed for JOSE NAVA MD ([email or web address]) on 02/03/25 at 16:29. Electronically submitted by Prashant Santana ([email or web address]). JOSE NAVA MD Feb 03, 2025 16:29
[2025-02-03] MEDS: ONDANSETRON HCL 4 MG/2 ML VIAL ONE (17:37)
[2025-02-03] MEDS: ONDANSETRON HCL 4 MG/2 ML VIAL IV ONE (17:40)
[2025-02-03] MEDS: LABETALOL INJECTION 250 MG in SODIUM CHL 0.9% 200 ML IV ONE (18:21)
--- NOTE | 2025-02-03 18:53 | ECG ---
[facility] Test Date: 2025-02-03 Test Time: 13:44:53 Pat Name: PAMELA SELBY Department: ED Room: 0219T Gender: M Referral Rn: teddy : 1940 Requested By: MELISSA NAVA Order Number: [id number] Reading MD: Hal Haynes Measurements Intervals [place] Rate: 71 P: 29 AR: 216 QRS: -83 QRSD: 148 T: 87 QT: 464 QTc: 505 Interpretive Statements Sinus rhythm Borderline prolonged AR interval RBBB and LAFB Electronically Signed On 02-07-2025 20:16:13 PDT by Hal Haynes Please click the below link to view image of tracing.
--- NOTE | 2025-02-03 18:53 | ECG ---
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
[2025-02-03 19:30] VITALS: PULSE 60; RESP 19; O2SAT 97
[2025-02-03] MEDS ORDERED: DEXTROSE (50%) 50ML SYRG IV PRN (21:15)
[2025-02-03] MEDS ORDERED: LORazepam 0.5 MG TAB PO PRN (21:15)
[2025-02-03] MEDS ORDERED: NITROGLYCERIN 0.4 MG SL TAB SL PRN (21:15)
[2025-02-03] MEDS ORDERED: ONDANSETRON HCL 4 MG/2 ML VIAL IV PRN (21:15)
[2025-02-03] MEDS ORDERED: MORPHINE SULFATE INJ 2 MG/ml SYRG IV PRN ×2 (21:15)
[2025-02-03] MEDS ORDERED: ACETAMINOPHEN 325 MG TAB PO PRN (21:15)
[2025-02-03] MEDS ORDERED: VANCOMYCIN PER PHARMACY 0 MG IV SCH (22:45)
[2025-02-03] MEDS: cefTRIAXone 1GM/50ML D5W 50 ML IV ONE (23:47)
[2025-02-03] MEDS: PRAZOSIN HCL 1 MG CAP PO SCH (23:57)
--- NOTE | 2025-02-04 00:05 | DVH ---
BILATERAL LOWER EXTREMITY VENOUS DOPPLER ULTRASOUND CLINICAL HISTORY: swelling redness TECHNIQUE: Grayscale ultrasound with compression, color Doppler flow imaging with pulsed duplex sonog kel of the bilateral lower extremity deep venous system from the common femoral veins through the p opliteal veins is performed. COMPARISON: BI LOWER DVT on DOS: 10/27/22 FINDINGS: Right common femoral vein: Negative. Right greater saphenous vein: Negative. Right deep femoral vein: Negative. Right femoral vein: Negative. Right popliteal vein: Negative. Left common femoral vein: Negative. Left greater saphenous vein: Negative. Left deep femoral vein: Negative. Left femoral vein: Negative. Left popliteal vein: Negative. Other: Visualized bilateral popliteal trifurcation and posterior tibial veins demonstrate color flow. IMPRESSION: No sonographic evidence of deep venous thrombosis in either lower extremity at this time.
[2025-02-04] MEDS: ACCU-CHEK COMFORT CURVE STRIP VI SCH (00:08)
[2025-02-04] MEDS: InsuLIN REG 1unit/0.01ml Soln (100units/ml) SC SCH (00:08)
--- NOTE | 2025-02-04 00:48 | DVHHP2 ---
KANDI MADISON ACCOUNT SUPERVISOR 02/04/25 0048: History of Present Illness Reason for Visit: Chest pain History of Present Illness 84-year-old male with past medical history of CVA, hypertension, DM presents with complaints of chest pain x1 day. Patient also endorses nausea and vomiting. While in the emergency department patient was noted to have a blood pressure 210/83. Blood pressure did not improve with oral antihypertensives and was started on labetalol drip. Information in the HPI is acquired with the assistance of the patient's daughter who is at the bedside. Patient's daughter also endorses the patient has been experiencing bilateral lower extremity edema. And redness to the right lower extremity has been progressively getting worse. There are no complaints of fevers, chills, palpitations, shortness of breath, abdominal pain. Cardiovascular: CHF, HTN, hyperipidemia Smoke: No ALCOHOL: none Drugs: None Lives: with Family Review of Systems Constitutional: Yes: Malaise; No: Fever, Chills, Sweats, Weakness, Other Eyes: No: Pain, Vision change, Conjunctivae inflammation, Eyelid inflammation, Other, Redness ENT: No: Ear pain, Ear discharge, Nose pain, Nose discharge, Nose congestion, Mouth pain, Mouth swelling, Throat pain, Throat swelling, Other Respiratory: No: Cough, Dry, Shortness of breath, SOB with excertion, Wheezing, Hemoptysis, Pleuritic Pain, Sputum, Wheezing, Other Cardiovascular: Chest Pain, Edema; No: Palpitations, Orthopnea, Paroxysmal Noc. Dyspnea, Lt Headedness, Other Gastrointestinal: Nausea, Vomiting; No: Abdominal Pain, Diarrhea, Constipation, Melena, Hematochezia, Other Genitourinary: No Dysuria, No Frequency, No Incontinence, No Hematuria, No Retention, No Other Musculoskeletal: No: other, neck pain, shoulder pain, arm pain, back pain, hand pain, leg pain, foot pain Skin: No: Rash, Lesions, Jaundice, Bruising, Other Neurological: No: Weakness, Numbness, Incoordination, Change in speech, Confusion, Seizures, Other Allergies: Coded Allergies: Carvedilol (Verified Allergy, Unknown, 01/30/23) Ezetimibe (Verified Allergy, Unknown, 01/30/23) Hydralazine (Verified Allergy, Unknown, 01/30/23) Isosorbide Nitrate (Verified Allergy, Unknown, 01/30/23) Lactulose (Verified Allergy, Unknown, 01/30/23) Lisinopril (Verified Allergy, Unknown, 01/30/23) Medications Current Medications Medications Dose Ordered Sig/Lucy Route Start Time Stop Time Status Last Admin Dose Admin Acetaminophen 650 mg Q6HP PRN PO 02/03/25 21:15 Ondansetron HCl 4 mg Q4HP PRN IV 02/03/25 21:15 Morphine Sulfate 2 mg Q4HPRN PRN IV 02/03/25 21:15 Nitroglycerin 0.4 mg Q5MINP PRN SL 02/03/25 21:15 Hold Morphine Sulfate 2 mg Q30M PRN IV 02/03/25 21:15 Aspirin 81 mg DAILY PO 02/04/25 10:00 Atorvastatin Calcium 40 mg HS PO 02/04/25 22:00 Nifedipine 90 mg DAILY PO 02/04/25 10:00 Prazosin HCl 2 mg TID PO 02/03/25 22:00 02/03/25 23:57 2 MG Donepezil HCl 10 mg DAILY PO 02/04/25 10:00 Lorazepam 0.5 mg BIDP PRN PO 02/03/25 21:15 Diagnostic Test (Pha) 1 strip ACHS 02/03/25 22:00 02/04/25 00:08 1 STRIP Insulin Human Regular ACHS SC 02/03/25 22:00 Dextrose 50 ml UD PRN IV 02/03/25 21:15 Vancomycin HCl 0 ml @ 0 mls/hr UD IV 02/03/25 22:45 UNV Ceftriaxone Sodium 50 ml @ 100 mls/hr DAILY@09 IV 02/05/25 09:00 Clonidine HCl 0.2 mg BID PRN PO 02/03/25 22:45 Exam Vital Signs Vital Signs Date Time Temp Pulse Resp B/P (MAP) Pulse Ox O2 Delivery O2 Flow Rate FiO2 02/03/25 23:57 187/79 02/03/25 23:25 58 02/03/25 20:15 19 97 02/03/25 19:30 Nasal Cannula* 2 28 02/03/25 19:30 97.9 97.9 General Appearance: Alert, Oriented X3, Cooperative HEENT: Atraumatic, PERRLA Respiratory: Clear to auscultation, Normal air movement Cardiovascular: Regular rate, Normal S1, Normal S2 Abdominal: Normal bowel sounds, Soft, No tenderness Extremities: Other (Left lower extremity trace edema. Right lower extremity scabbing with surrounding erythematous changes) Neuro: Other (At baseline s/p cva) Psych/Mental Status: Mood NL Labs/Xrays Labs Test 02/04/25 00:06 02/03/25 16:54 02/03/25 13:15 Range/Units POC Glucose 159 H 70-106 mg/dl Troponin I High Sensitivity 48 </=54 ng/L White Blood Count 7.5 4.4-10.8 10^3/uL Red Blood Count 6.22 H 4.5-5.90 10^6/uL Hemoglobin 17.8 H 13.5-17.5 g/dL Hematocrit 53.0 41.0-53.0 % Mean Corpuscular Volume 85.3 80.0-100.0 fL Mean Corpuscular Hemoglobin 28.6 28.0-32.0 pg Mean Corpuscular Hemoglobin Concent 33.6 32.0-36.0 g/dL Red Cell Distribution Width 14.8 H 11.8-14.3 % Platelet Count 172 140-450 10^3/uL Mean Platelet Volume 9.2 6.9-10.8 fL Neutrophils (%) (Auto) 77.8 37.0-80.0 % Lymphocytes (%) (Auto) 14.6 10.0-50.0 % Monocytes (%) (Auto) 6.5 0.0-12.0 % Eosinophils (%) (Auto) 0.5 0.0-7.0 % Basophils (%) (Auto) 0.6 0.0-2.0 % Neutrophils # (Auto) 5.8 1.6-8.6 10 ^3/uL Lymphocytes # (Auto) 1.1 0.4-5.4 10 ^3/uL Monocytes # (Auto) 0.5 0-1.3 10 ^3/uL Eosinophils # (Auto) 0 0-0.8 10 ^3/uL Basophils # (Auto) 0 0-0.2 10 ^3/uL Nucleated Red Blood Cells 0.7 % Sodium Level 137 136-145 mmol/L Potassium Level 4.0 3.5-5.1 mmol/L Chloride Level 101 98-107 mmol/L Carbon Dioxide Level 27 20-31 mmol/L Anion Gap 9 5-15 Blood Urea Nitrogen 13 9-23 mg/dL Creatinine 1.12 0.700-1.30 mg/dL Glomerular Filtration Rate Calc 65 >90 mL/min BUN/Creatinine Ratio 11.6 10.0-20.0 Serum Glucose 156 H 74-106 mg/dL Calcium Level 10.2 8.7-10.4 mg/dL Assessment/Plan Assessment/Plan Hypertensive emergency Chest pain Cellulitis right lower extremity DM Hx CVA Plan Admin ICU Cardiology consult. Echocardiogram. As needed anti-hypertensive for optimal BP management. Continue labetalol drip. Continue home medication. Blood glucose checks ACHS with regular insulin sliding scale coverage Infectious disease consult. Blood cultures pending. Wound culture pending Broad spectrum IV ABX Gi ppx protonix / DVT ppx lovenox Plan discussed with: Patient, Daughter My Orders Orders - KANDI MADISON NP Procedure Category Date Status Time Admit ADMIT 02/03/25 Transmitted 21:04 Code Status CODE 02/03/25 Transmitted 21:04 Vital Signs ZACHARIAH 02/03/25 In Process 21:04 Review Orders With ZACHARIAH 02/03/25 In Process Adm. 21:04 Consistent DIET 02/04/25 Transmitted Carb(Ccho)Diabetes Breakfast Oxygen By Face Mask RT 02/03/25 Transmitted 21:04 Acetaminophen Tablet PHA 02/03/25 In Process (Tylenol Tablet) 21:15 Notify Of Changes ZACHARIAH 02/03/25 In Process From Base 21:04 Advance Directive ZACHARIAH 02/03/25 In Process 21:04 Echo 2d Mode Cardiac US 02/03/25 Logged DOP 21:04 Basic Metabolic Panel LAB 02/04/25 Logged 05:00 Basic Metabolic Panel LAB 02/05/25 Verified 05:00 Basic Metabolic Panel LAB 02/06/25 Verified 05:00 Basic Metabolic Panel LAB 02/07/25 Verified 05:00 Basic Metabolic Panel LAB 02/08/25 Verified 05:00 Complete Blood Count LAB 02/04/25 Logged 05:00 Complete Blood Count LAB 02/05/25 Verified 05:00 Complete Blood Count LAB 02/06/25 Verified 05:00 Complete Blood Count LAB 02/07/25 Verified 05:00 Complete Blood Count LAB 02/08/25 Verified 05:00 Patient Condition ORDERS 02/03/25 Transmitted 21:04 Allergies ZACHARIAH 02/03/25 In Process 21:04 Ondansetron Hcl PHA 02/03/25 In Process (Zofran) 21:15 Morphine Sulfate PHA 02/03/25 In Process Injection 21:15 Nitroglycerin PHA 02/03/25 In Process Sublingual (Ntrostat 21:15 Morphine Sulfate PHA 02/03/25 In Process Injection 21:15 Stat Ekg For Chest ZACHARIAH 02/03/25 In Process Pain 21:04 Notify Of Changes ZACHARIAH 02/03/25 In Process From Base 21:04 Dental Surgeon For ZACHARIAH 02/03/25 In Process 24 Hours 21:04 Emergency Dysrhythmia ZACHARIAH 02/03/25 In Process Protocol 21:04 Rhythm Strips Once ZACHARIAH 02/03/25 In Process Every Shift 21:04 Oxygen By Nasal RT 02/03/25 Transmitted Cannula 21:04 Aspirin Enteric PHA 02/04/25 In Process Coated Tablet 10:00 Atorvastatin (Lipitor) PHA 02/04/25 In Process 22:00 Nifedipine Er PHA 02/04/25 In Process (Procardia Xl 10:00 Prazosin Hcl Capsule PHA 02/03/25 In Process (Minipres Capsule) 22:00 Donepezil Tablet PHA 02/04/25 In Process (Aricept Tablet) 10:00 Lorazepam Tablet PHA 02/03/25 In Process (Ativan Tablet) 21:15 * Cardiology Consult CONS 02/03/25 Transmitted 21:04 Glucose Blood PHA 02/03/25 In Process (Accu-Chek Comfort 22:00 Insulin R (Human) PHA 02/03/25 In Process (Insulin R) 22:00 Dextrose 50% Syringe PHA 02/03/25 In Process 21:15 Vancomycin Per PHA 02/03/25 Pending Pharmacy 22:45 Bilat Lower Dvt US 02/03/25 Resulted 22:33 * Infectious Miguelito- . CONS 02/03/25 Transmitted Mallad 22:33 Troponin-I Hs LAB 02/04/25 Logged 04:00 Troponin-I Hs LAB 02/04/25 Logged 08:00 Clonidine Hcl Tablet PHA 02/03/25 In Process (Catapres Tablet) 22:45 Ceftriaxone 1gm/50ml PHA 02/05/25 In Process D5w (Rocephin) 09:00 Vancomycin 1.5gm/300ml PHA 02/03/25 In Process 23:30 Blood Culture JAIRO 02/04/25 In Process 00:00 Wound Culture W/ Gs JAIRO 02/04/25 Logged 00:00 Enoxaparin Sodium PHA 02/04/25 Transmitted (Lovenox) 10:00 Pantoprazole PHA 02/04/25 Transmitted (Protonix) 10:00 Date of Service: Feb 04, 2025 Billing Provider: DAVID GALVEZ MD Common Visit Codes: NOT BILLABLE DAVID GALVEZ MD 02/04/25 1555: Review of Systems Allergies: Coded Allergies: Carvedilol (Verified Allergy, Unknown, 01/30/23) Ezetimibe (Verified Allergy, Unknown, 01/30/23) Hydralazine (Verified Allergy, Unknown, 01/30/23) Isosorbide Nitrate (Verified Allergy, Unknown, 01/30/23) Lactulose (Verified Allergy, Unknown, 01/30/23) Lisinopril (Verified Allergy, Unknown, 01/30/23) Additional Comments Additional Comments Additional Comments 84-year-old male with a known history of hypertension, dyslipidemia, previous history of CVA with right-sided deficit, insulin-dependent diabetes mellitus t ype 2, anxiety disorder initially present with the hospital with chest pain found to have 1. Hypertensive urgency 2. NSTEMI type 2 3. Dyslipidemia 4. History of CVA with right-sided deficit 5. Acute kidney injury suspected secondary to vasomotor nephropathy 6. Diabetes mellitus type 2 7. History of CVA with right-sided deficit -titrate nicardipine drip, 2D echo cardiology consultation KANDI MADISON NP Feb 04, 2025 00:48 DAVID GALVEZ MD Feb 04, 2025 15:55
[2025-02-04] MEDS: cloNIDine HCL 0.1 MG TAB PO PRN (03:42)
[2025-02-04 05:33] LABS: Basophils # (auto) 0 10 ^3/uL (0-0.2); Basophils % (auto) 0.4 % (0.0-2.0); Eosinophils # (auto) 0 10 ^3/uL (0-0.8); Eosinophils % (auto) 0.2 % (0.0-7.0); Hematocrit 49.9 % (41.0-53.0); Hemoglobin 16.9 g/dL (13.5-17.5); Lymphocytes # (auto) 1.4 10 ^3/uL (0.4-5.4); Lymphocytes % (auto) 14.3 % (10.0-50.0); Mean Corpuscular Hemoglobin 28.5 pg (28.0-32.0); Mean Corpuscular Hgb Conc. 33.9 g/dL (32.0-36.0); Mean Corpuscular Volume 84.1 fL (80.0-100.0); Monocytes # (auto) 0.8 10 ^3/uL (0-1.3); Monocytes % (auto) 8.3 % (0.0-12.0); Neutrophils # (auto) 7.7 10 ^3/uL (1.6-8.6); Neutrophils % (auto) 76.8 % (37.0-80.0); Nucleated Red Blood Cells % 0.5 %; Platelet Count (auto) 175 10^3/uL (140-450); Red Blood Cells 5.94 10^6/uL (4.5-5.90); Red Cell Distribution Width 14.4 % (11.8-14.3)
[2025-02-04 05:40] LABS: Chloride 101 mmol/L (98-107); Potassium 4.4 mmol/L (3.5-5.1); Sodium 140 mmol/L (136-145)
[2025-02-04 05:41] LABS: Anion Gap 10 (5-15); Calcium 9.7 mg/dL (8.7-10.4); Carbon Dioxide 29 mmol/L (20-31)
[2025-02-04 05:46] LABS: BUN/Creatinine Ratio 13.4 (10.0-20.0); Blood Urea Nitrogen 18 mg/dL (9-23)
[2025-02-04 05:56] LABS: Glucose 141 mg/dL (74-106)
[2025-02-04 08:00] VITALS: PULSE 65; RESP 16; O2SAT 96
--- NOTE | 2025-02-04 09:49 | DVHINCON2 ---
TOR MORENO [facility] 02/04/25 0949: Date Seen: Feb 04, 2025 Referring Physician JAVIER Sarah Reason for Consultation CP, HTN emergency History of Present Illness This is an 84-year-old Togolese-speaking male patient who presents to the emergency room with chief complaint of chest pain. The patient reports that he was experiencing chest pain for three days prior to emergency room arrival. He describes it as unprovoked, constant, pressure-like in nature, midsternal and nonradiating. The patient also mentions an episode of nausea and vomiting. The patient was brought to the emergency room by his daughter/caregiver. While in the emergency room, the patient was noted to have a blood pressure reaching as high as 212/100. Initial twelve lead electrocardiogram reveals normal sinus rhythm with first-degree AV block, right bundle branch block and PVCs. Initial troponin level of 43ng/L with flat trend thereafter. Significant past medical history includes hypertension, hyperlipidemia, CVA with right-sided deficit, and type 2 diabetes mellitus. The patient is a very poor historian. Per records, the patient had an angiogram in 2014 which revealed mild coronary artery disease with no catheter based intervention at that time. 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 Past Medical History Past medical history reviewed. No other significant than mentioned above. Past Surgical History Denies Family History: Family history: Diabetes mellitus G8 MOTHER G8 FATHER Family History Family history reviewed. Social History Denies the use of tobacco, alcohol or illicit drugs. Allergies: Coded Allergies: Carvedilol (Verified Allergy, Unknown, 01/30/23) Ezetimibe (Verified Allergy, Unknown, 01/30/23) Hydralazine (Verified Allergy, Unknown, 01/30/23) Isosorbide Nitrate (Verified Allergy, Unknown, 01/30/23) Lactulose (Verified Allergy, Unknown, 01/30/23) Lisinopril (Verified Allergy, Unknown, 01/30/23) Home Meds Active Scripts Amlodipine Besylate (Amlodipine Besylate) 10 Mg Tab, 1 TAB PO QPM, #90 TAB 1 Refill Prov:ARLEN LANGE MD 02/01/23 Losartan Potassium (Losartan Potassium) 25 Mg Tab, 25 MG PO DAILY, #60 TAB Prov:ARLEN LANGE MD 02/01/23 Nifedipine (Nifedipine Er) 90 Mg Tab, 1 TAB PO DAILY, #60 TAB 5 Refills Prov:ARLEN LANGE MD 02/01/23 Reported Medications Ferrous Sulfate (Iron (Ferrous Sulfate)) 50 Mg Tab, 50 MG PO, TAB 01/31/23 Cobalamine Combinations (B-12 1000) 1,000 Mcg Sub, 1000 MCG SL, INJ 01/31/23 Digestive Enzymes (Digestive Enzyme) 1 Cap Cap, 1 CAP PO, CAP 01/31/23 Nutritional Supplements (Irwin Oil) 1,000 Mg Cap, 1000 MG PO, CAP 01/31/23 Insulin Glargine (Basaglar Kwikpen) 100 Unit/Ml Inj, 13 UNIT SC 01/31/23 Isosorbide Mononitrate (Isosorbide Mononitrate Er) 60 Mg Tab, 1 TAB PO TID, #30 TAB 5 Refills 03/04/22 Citalopram Hydrobromide (Celexa) 10 Mg Tab, 2 TAB PO DAILY, #30 TAB 2 Refills 03/04/22 Insulin Lispro (Human) (Humalog) 100 Mg/Ml Inj, 0 SC TIDWM, INJ 4 UNITS SC BS 180-220 9 UNITS SC BS ABOVE 251 07/22/15 Atorvastatin Calcium (ATORVASTATIN CALCIUM) 40 Mg Tab, 1 TAB PO DAILY, #30 TAB 5 Refills 07/22/15 Aspirin (Aspir-81) 81 Mg Tab, 1 TAB PO DAILY, #30 TAB 5 Refills 07/22/15 Omeprazole (PRILOSEC) 20 Mg Cap, 1 CAP PO DAILY, #90 CAP 1 Refill 07/22/15 Home Meds Home medications reviewed. Current Medications Current Medications Medications (Trade) Dose Ordered Sig/Lucy Route PRN Reason Start Time Stop Time Status Last Admin Acetaminophen (Tylenol Tablet) 650 mg Q6HP PRN PO PAIN SCALE 1-3 OR TEMP>100.4 02/03/25 21:15 Ondansetron HCl (Zofran) 4 mg Q4HP PRN IV NAUSEA / VOMITING 02/03/25 21:15 Morphine Sulfate 2 mg Q4HPRN PRN IV SEVERE PAIN (7-10 PAIN SCALE) 02/03/25 21:15 Nitroglycerin (Ntrostat Sublingual) 0.4 mg Q5MINP PRN SL FOR CHEST PAIN 02/03/25 21:15 Hold Morphine Sulfate 2 mg Q30M PRN IV FOR CHEST PAIN 02/03/25 21:15 Aspirin (Ecotrin Enteric Coated Tablet) 81 mg DAILY PO 02/04/25 10:00 Atorvastatin Calcium (Lipitor) 40 mg HS PO 02/04/25 22:00 Nifedipine (Procardia Xl (Time-Release)) 90 mg DAILY PO 02/04/25 10:00 Prazosin HCl (Minipres Capsule) 2 mg TID PO 02/03/25 22:00 02/04/25 05:10 Donepezil HCl (Aricept Tablet) 10 mg DAILY PO 02/04/25 10:00 Lorazepam (Ativan Tablet) 0.5 mg BIDP PRN PO anxiety 02/03/25 21:15 Diagnostic Test (Pha) (Accu-Chek Comfort Curve T) 1 strip ACHS 02/03/25 22:00 02/04/25 05:16 Insulin Human Regular (InsuLIN R) ACHS SC 02/03/25 22:00 Dextrose 50 ml UD PRN IV Blood Sugar LESS THAN 60 02/03/25 21:15 Vancomycin HCl 0 ml @ 0 mls/hr UD IV 02/03/25 22:45 Ceftriaxone Sodium 50 ml @ 100 mls/hr DAILY@09 IV 02/05/25 09:00 Clonidine HCl (Catapres Tablet) 0.2 mg BID PRN PO SBP > 180 02/03/25 22:45 02/04/25 03:42 Enoxaparin Sodium (Lovenox) 40 mg DAILY SC 02/04/25 10:00 Pantoprazole Sodium (Protonix) 40 mg DAILY IV 02/04/25 10:00 Nicardipine HCl 250 ml @ 50 mls/hr Q5H IV 02/04/25 06:15 02/04/25 06:30 Vancomycin HCl 200 ml @ 160 mls/hr Q24H IV 02/04/25 22:00 Review of Systems Constitutional: No symptom reported Ears, Nose, & Throat: No symptom reported Eyes: No symptom reported Neurological: No symptoms reported Pulmonary/Respiratory: No symptoms reported Cardiovascular: Chest pain Gastrointestinal: Nausea and vomiting Genitourinary: No symptom reported Musculoskeletal: No symptom reported Skin: No symptom reported Psychiatric: No symptom reported Endocrine: No symptom reported Hematologic/Lymphatic: No symptom reported Vital Signs Vital Signs Date Time Temp Pulse Resp B/P (MAP) Pulse Ox O2 Delivery O2 Flow Rate FiO2 02/04/25 08:00 65 16 96 Nasal Cannula* 2 28 02/04/25 08:00 98.6 140/55 (83) 98.6 Physical Exam General Appearance: Cooperative. Well-developed. Well-nourished. No acute distress. Pulmonary/Respiratory: Clear, bilateral breaths sounds. Cardiovascular/Chest: Regular rate and rhythm. Peripheral Pulses: 2+ Radial (R). 2+ Radial (L). 1+ Pedal (R). 1+ Pedal (L) Abdominal Exam: Normal bowel sounds. Ankle Exam: Negative ankle edema Lower extremities: Negative lower extremity edema Neuro/Mental Status: A/OX4, coherent. Thoughts/Psych: Normal thought pattern. Appropriate mood and affect. Good judgment and insight. Appearance: No acute distress. Skin Exam: Discoloration/scabbing to bilateral lower extremities. Skin warm and dry Labs/Diagnostic Data Labs Test 02/04/25 08:47 02/04/25 05:15 02/04/25 04:58 Range/Units Troponin I High Sensitivity 76 *H </=54 ng/L POC Glucose 132 H 70-106 mg/dl White Blood Count 10.0 # 4.4-10.8 10^3/uL Red Blood Count 5.94 H 4.5-5.90 10^6/uL Hemoglobin 16.9 13.5-17.5 g/dL Hematocrit 49.9 41.0-53.0 % Mean Corpuscular Volume 84.1 80.0-100.0 fL Mean Corpuscular Hemoglobin 28.5 28.0-32.0 pg Mean Corpuscular Hemoglobin Concent 33.9 32.0-36.0 g/dL Red Cell Distribution Width 14.4 H 11.8-14.3 % Platelet Count 175 140-450 10^3/uL Mean Platelet Volume 8.9 6.9-10.8 fL Neutrophils (%) (Auto) 76.8 37.0-80.0 % Lymphocytes (%) (Auto) 14.3 10.0-50.0 % Monocytes (%) (Auto) 8.3 0.0-12.0 % Eosinophils (%) (Auto) 0.2 0.0-7.0 % Basophils (%) (Auto) 0.4 0.0-2.0 % Neutrophils # (Auto) 7.7 1.6-8.6 10 ^3/uL Lymphocytes # (Auto) 1.4 0.4-5.4 10 ^3/uL Monocytes # (Auto) 0.8 0-1.3 10 ^3/uL Eosinophils # (Auto) 0 0-0.8 10 ^3/uL Basophils # (Auto) 0 0-0.2 10 ^3/uL Nucleated Red Blood Cells 0.5 % Sodium Level 140 136-145 mmol/L Potassium Level 4.4 3.5-5.1 mmol/L Chloride Level 101 98-107 mmol/L Carbon Dioxide Level 29 20-31 mmol/L Anion Gap 10 5-15 Blood Urea Nitrogen 18 9-23 mg/dL Creatinine 1.34 H 0.700-1.30 mg/dL Glomerular Filtration Rate Calc 52 >90 mL/min BUN/Creatinine Ratio 13.4 10.0-20.0 Serum Glucose 141 H 74-106 mg/dL Calcium Level 9.7 8.7-10.4 mg/dL Assessment Chest pain, rule out coronary ischemia NSTEMI Hypertensive emergency Chronic HFpEF, NYHA class III Hyperlipidemia CVA with right-sided deficit Type 2 diabetes mellitus Acute kidney injury Plan/Recommendation We will continue with the following plan/recommendations (Dr. Avendano): * Transthoracic echocardiogram reveals EF 50-55% with moderate diastolic dysfunction * Aggressive blood pressure control * Lipid-lowering agent * DVT/VTE prophylaxis * Nuclear stress test * Close Cardiac surveillance Patient seen and examined at bedside with DR. Avendano. Thank you for allowing us to care for this patient. Please call with any questions or concerns. C ritical care time spent: 40 minutes This medical document was created using an electronic medical record system with voice recognition software and computerized dictation system. Although this document has been carefully reviewed, there might still be some phonetic and typographical errors. Occasional wrong-word or ``sound-alike substitutions may have occurred due to the inherent limitations of voice recognition software. These areas are purely typographical due to imperfections of the software programs and do not reflect any compromise in the patient's medical care. Please read the chart carefully and recognize, using context, where these substitutions have occurred. Plan discussed with: Patient NYHA Physical activity limitations: Class3(Marked) ordinary (activity causes symtoms) Date of Service: Feb 04, 2025 Billing Provider: TOR MORENO Cardiology Common Codes: [id number] INP/OBS CARE (High) Cardiology Consultation Codes: [id number] CONSULT <45MIN ROLANDO AVENDANO DO 02/04/25 2328: Date Seen: Feb 04, 2025 Family History: Family history: Diabetes mellitus G8 MOTHER G8 FATHER Allergies: Coded Allergies: Carvedilol (Verified Allergy, Unknown, 01/30/23) Ezetimibe (Verified Allergy, Unknown, 01/30/23) Hydralazine (Verified Allergy, Unknown, 01/30/23) Isosorbide Nitrate (Verified Allergy, Unknown, 01/30/23) Lactulose (Verified Allergy, Unknown, 01/30/23) Lisinopril (Verified Allergy, Unknown, 01/30/23) Home Meds Active Scripts Amlodipine Besylate (Amlodipine Besylate) 10 Mg Tab, 1 TAB PO QPM, #90 TAB 1 Refill Prov:ARLEN LANGE MD 02/01/23 Losartan Potassium (Losartan Potassium) 25 Mg Tab, 25 MG PO DAILY, #60 TAB Prov:ARLEN LANGE MD 02/01/23 Nifedipine (Nifedipine Er) 90 Mg Tab, 1 TAB PO DAILY, #60 TAB 5 Refills Prov:ARLEN LANGE MD 02/01/23 Reported Medications Ferrous Sulfate (Iron (Ferrous Sulfate)) 50 Mg Tab, 50 MG PO, TAB 01/31/23 Cobalamine Combinations (B-12 1000) 1,000 Mcg Sub, 1000 MCG SL, INJ 01/31/23 Digestive Enzymes (Digestive Enzyme) 1 Cap Cap, 1 CAP PO, CAP 01/31/23 Nutritional Supplements (Irwin Oil) 1,000 Mg Cap, 1000 MG PO, CAP 01/31/23 Insulin Glargine (Basaglar Kwikpen) 100 Unit/Ml Inj, 13 UNIT SC 01/31/23 Isosorbide Mononitrate (Isosorbide Mononitrate Er) 60 Mg Tab, 1 TAB PO TID, #30 TAB 5 Refills 03/04/22 Citalopram Hydrobromide (Celexa) 10 Mg Tab, 2 TAB PO DAILY, #30 TAB 2 Refills 5/22/22 Insulin Lispro (Human) (Humalog) 100 Mg/Ml Inj, 0 SC TIDWM, INJ 4 UNITS SC BS 180-220 9 UNITS SC BS ABOVE 251 07/22/15 Atorvastatin Calcium (ATORVASTATIN CALCIUM) 40 Mg Tab, 1 TAB PO DAILY, #30 TAB 5 Refills 07/22/15 Aspirin (Aspir-81) 81 Mg Tab, 1 TAB PO DAILY, #30 TAB 5 Refills 07/22/15 Omeprazole (PRILOSEC) 20 Mg Cap, 1 CAP PO DAILY, #90 CAP 1 Refill 07/22/15 Plan/Recommendation The patient was discussed, seen, and examined with Tor Moreno NP. I agree with her Assessment and Plan, which was formulated with me. Plan discussed with: Patient Date of Service: Feb 04, 2025 Billing Provider: ROLANDO AVENDANO DO Cardiology Common Codes: [id number] INP/OBS CARE (High) TOR MORENO SENIOR MEDICAL TECHNOLOGIST Feb 04, 2025 09:49 ROLANDO AVENDANO DO Feb 04, 2025 23:28
[2025-02-04 11:06] LABS: Magnesium 1.7 mg/dL (1.6-2.6)
[2025-02-04] MEDS: PANTOPRAZOLE 40 MG/10 ML VIAL INJ IV SCH (11:37)
[2025-02-04] MEDS: DONEPEZIL HYDROCHLORIDE 5 MG TAB PO SCH (11:38)
[2025-02-04] MEDS: ENOXAPARIN SOD 40 MG/0.4 ML SYRINGE SC SCH (11:38)
[2025-02-04] MEDS: NIFEdipine ER 30 MG TAB PO SCH (11:39)
[2025-02-04] MEDS: ASPirin-EC 81 mg tab PO SCH (11:42)
--- NOTE | 2025-02-04 12:28 | DVHINCON2 ---
Date of service: Feb 04, [address] Herring Reason for Consultation Cellulitis History of Present Illness Patient is a 84-year-old male presents to the hospital with complaints of chest pain for the past 1 day. He describes the pain as unprovoked, constant, pressur e-like in nature, midsternal and nonradiating. Patient also reports nausea and vomiting. While in the emergency department patient was noted to have a blood pressure 210/83. Blood pressure did not improve with oral antihypertensives and was s tarted on labetalol drip. As per report, patient has been experiencing bilateral lower extremity edema and redness to the right lower extremity has been progressively getting worse. There are no complaints of fevers, chills, palpitations, shortness of breath, abdominal pain. Past Medical History Patient's past medical history is significant for CHF, HTN and hyperlipidemia Family History: Family history: Diabetes mellitus G8 MOTHER G8 FATHER Social History Smoke: No ALCOHOL: none Drugs: None Lives: with Family Allergies: Coded Allergies: Carvedilol (Verified Allergy, Unknown, 01/30/23) Ezetimibe (Verified Allergy, Unknown, 01/30/23) Hydralazine (Verified Allergy, Unknown, 01/30/23) Isosorbide Nitrate (Verified Allergy, Unknown, 01/30/23) Lactulose (Verified Allergy, Unknown, 01/30/23) Lisinopril (Verified Allergy, Unknown, 01/30/23) Home Meds Active Scripts Nifedipine (Nifedipine Er) 90 Mg Tab, 1 TAB PO DAILY, #60 TAB 5 Refills Prov:ARLEN LANGE MD 02/01/23 Reported Medications Niodgmeydif-Tlmuabuzchtc-Clbgy (Trelegy Ellipta 200-62.5-25 Mcg/INH) 1 Aer Aer, 1 PUFF INH DAILY for 30 Days, #60 02/05/25 Donepezil Hydrochloride (Donepezil Hydrochloride) 10 Mg Tab, 1 TAB PO DAILY for 90 Days, #90 25 Yazkt-3-Usqj Ethyl Esters (Ddwcw-7-Ufjb Ethyl Esters) 1 Gm Cap, 1 CAP PO BID for 90 Days, #180 02/05/25 Lorazepam (Lorazepam) 1 Mg Tab, 1 TAB PO DAILYP for 15 Days, #15 02/05/25 Prazosin HCl (Prazosin Hydrochloride) 2 Mg Cap, 1 CAP PO TID for 30 Days, #90 02/05/25 Irbesartan (IRBESARTAN) 300 Mg Tab, 1 TAB PO DAILY for 30 Days, #30 02/05/25 Clonidine Hydrochloride (Clonidine Hcl) 0.3 Mg Tab, 1 TAB PO TID for 90 Days, #270 02/05/25 Tirzepatide (Mounjaro) 15 Mg/0.5 Ml Inj, 15 MG SC QWEEKLY for 28 Days, #2 02/05/25 Cobalamine Combinations (B-12 1000) 1,000 Mcg Sub, 1000 MCG SL, INJ 01/31/23 Nutritional Supplements (Mcfall Oil) 1,000 Mg Cap, 1000 MG PO, CAP 01/31/23 Insulin Glargine (Basaglar Kwikpen) 100 Unit/Ml Inj, 13 UNIT SC 01/31/23 Insulin Lispro (Human) (Humalog) 100 Mg/Ml Inj, 0 SC TIDWM, INJ 4 UNITS SC BS 180-220 9 UNITS SC BS ABOVE 251 07/22/15 Aspirin (Aspir-81) 81 Mg Tab, 1 TAB PO DAILY, #30 TAB 5 Refills 07/22/15 Discontinued Reported Medications Clonidine Hydrochloride (Clonidine Hcl) 0.2 Mg Tab, 0.3 MG PO BID, TAB 02/05/25 Current Medications Current Medications Medications (Trade) Dose Ordered Sig/Lucy Route PRN Reason Start Time Stop Time Status Last Admin Acetaminophen (Tylenol Tablet) 650 mg Q6HP PRN PO PAIN SCALE 1-3 OR TEMP>100.4 02/03/25 21:15 Ondansetron HCl (Zofran) 4 mg Q4HP PRN IV NAUSEA / VOMITING 02/03/25 21:15 Morphine Sulfate 2 mg Q4HPRN PRN IV SEVERE PAIN (7-10 PAIN SCALE) 02/03/25 21:15 Nitroglycerin (Ntrostat Sublingual) 0.4 mg Q5MINP PRN SL FOR CHEST PAIN 02/03/25 21:15 Hold Morphine Sulfate 2 mg Q30M PRN IV FOR CHEST PAIN 02/03/25 21:15 Aspirin (Ecotrin Enteric Coated Tablet) 81 mg DAILY PO 02/04/25 10:00 02/04/25 11:42 Atorvastatin Calcium (Lipitor) 40 mg HS PO 02/04/25 22:00 Nifedipine (Procardia Xl (Time-Release)) 90 mg DAILY PO 02/04/25 10:00 02/04/25 11:39 Prazosin HCl (Minipres Capsule) 2 mg TID PO 02/03/25 22:00 02/04/25 05:10 Donepezil HCl (Aricept Tablet) 10 mg DAILY PO 02/04/25 10:00 02/04/25 11:38 Lorazepam (Ativan Tablet) 0.5 mg BIDP PRN PO anxiety 02/03/25 21:15 Diagnostic Test (Pha) (Accu-Chek Comfort Curve T) 1 strip ACHS 02/03/25 22:00 02/04/25 05:16 Insulin Human Regular (InsuLIN R) ACHS SC 02/03/25 22:00 Dextrose 50 ml UD PRN IV Blood Sugar LESS THAN 60 02/03/25 21:15 Vancomycin HCl 0 ml @ 0 mls/hr UD IV 02/03/25 22:45 Ceftriaxone Sodium 50 ml @ 100 mls/hr DAILY@09 IV 02/05/25 09:00 Clonidine HCl (Catapres Tablet) 0.2 mg BID PRN PO SBP > 180 02/03/25 22:45 02/04/25 03:42 Enoxaparin Sodium (Lovenox) 40 mg DAILY SC 02/04/25 10:00 02/04/25 11:38 Pantoprazole Sodium (Protonix) 40 mg DAILY IV 02/04/25 10:00 02/04/25 11:37 Nicardipine HCl 250 ml @ 50 mls/hr Q5H IV 02/04/25 06:15 02/04/25 10:50 Vancomycin HCl 200 ml @ 160 mls/hr Q24H IV 02/04/25 22:00 Review of Systems Constitutional: Yes: Malaise; No: Fever, Chills, Sweats, Weakness, Other Eyes: No: Pain, Vision change, Conjunctivae inflammation, Eyelid inflammation, Other, Redness ENT: No: Ear pain, Ear discharge, Nose pain, Nose discharge, Nose congestion, Mouth pain, Mouth swelling, Throat pain, Throat swelling, Other Respiratory: No: Cough, Dry, Shortness of breath, SOB with excertion, Wheezing, Hemoptysis, Pleuritic Pain, Sputum, Wheezing, Other Cardiovascular: Chest Pain, Edema; No: Palpitations, Orthopnea, Paroxysmal Noc. Dyspnea, Lt Headedness, Other Gastrointestinal: Nausea, Vomiting; No: Abdominal Pain, Diarrhea, Constipation, Melena, Hematochezia, Other Genitourinary: No Dysuria, No Frequency, No Incontinence, No Hematuria, No Retention, No Other Musculoskeletal: No: other, neck pain, shoulder pain, arm pain, back pain, hand pain, leg pain, foot pain Skin: No: Rash, Lesions, Jaundice, Bruising, Other Neurological: No: Weakness, Numbness, Incoordination, Change in speech, Confusion, Seizures, Other Vital Signs Vital Signs Date Time Temp Pulse Resp B/P (MAP) Pulse Ox O2 Delivery O2 Flow Rate FiO2 02/04/25 11:39 137/53 02/04/25 10:50 66 02/04/25 08:00 16 96 Nasal Cannula* 2 28 02/04/25 08:00 98.6 98.6 Physical Exam General Appearance: Alert, Oriented X3, Cooperative HEENT: Atraumatic, PERRLA Respiratory: Clear to auscultation, Normal air movement Cardiovascular: Regular rate, Normal S1, Normal S2 Abdominal: Normal bowel sounds, Soft, No tenderness Extremities: Other (Left lower extremity trace edema. Right lower extremity scabbing with surrounding erythematous changes) Neuro: Other (At baseline s/p cva) Psych/Mental Status: Mood NL Labs/Diagnostic Data Labs Test 02/04/25 08:47 02/04/25 05:15 02/04/25 04:58 Range/Units Magnesium Level 1.7 1.6-2.6 mg/dL Troponin I High Sensitivity 76 *H </=54 ng/L Triglycerides Level 111 < 150 mg/dL Cholesterol Level 230 H < 200 mg/dL LDL Cholesterol 157 H < 100 mg/dL HDL Cholesterol 57 40-59 mg/dL POC Glucose 132 H 70-106 mg/dl White Blood Count 10.0 # 4.4-10.8 10^3/uL Red Blood Count 5.94 H 4.5-5.90 10^6/uL Hemoglobin 16.9 13.5-17.5 g/dL Hematocrit 49.9 41.0-53.0 % Mean Corpuscular Volume 84.1 80.0-100.0 fL Mean Corpuscular Hemoglobin 28.5 28.0-32.0 pg Mean Corpuscular Hemoglobin Concent 33.9 32.0-36.0 g/dL Red Cell Distribution Width 14.4 H 11.8-14.3 % Platelet Count 175 140-450 10^3/uL Mean Platelet Volume 8.9 6.9-10.8 fL Neutrophils (%) (Auto) 76.8 37.0-80.0 % Lymphocytes (%) (Auto) 14.3 10.0-50.0 % Monocytes (%) (Auto) 8.3 0.0-12.0 % Eosinophils (%) (Auto) 0.2 0.0-7.0 % Basophils (%) (Auto) 0.4 0.0-2.0 % Neutrophils # (Auto) 7.7 1.6-8.6 10 ^3/uL Lymphocytes # (Auto) 1.4 0.4-5.4 10 ^3/uL Monocytes # (Auto) 0.8 0-1.3 10 ^3/uL Eosinophils # (Auto) 0 0-0.8 10 ^3/uL Basophils # (Auto) 0 0-0.2 10 ^3/uL Nucleated Red Blood Cells 0.5 % Sodium Level 140 136-145 mmol/L Potassium Level 4.4 3.5-5.1 mmol/L Chloride Level 101 98-107 mmol/L Carbon Dioxide Level 29 20-31 mmol/L Anion Gap 10 5-15 Blood Urea Nitrogen 18 9-23 mg/dL Creatinine 1.34 H 0.700-1.30 mg/dL Glomerular Filtration Rate Calc 52 >90 mL/min BUN/Creatinine Ratio 13.4 10.0-20.0 Serum Glucose 141 H 74-106 mg/dL Hemoglobin A1c 6.1 H <5.7 % A1C Calcium Level 9.7 8.7-10.4 mg/dL B-Type Natriuretic Peptide 334.04 0-100 pg/mL Thyroid Stimulating Hormone (TSH) 0.32 L 0.55-4.78 uIU/mL Assessment Patient is a 84-year-old male with Cellulitis of left leg Bilateral leg edema Chest pain ACS rule out Prediabetes Recommendations: Dc Vancomycin/ Ceftriaxone Start IV Cefazolin WBC normal Blood culture is preliminary, will follow Antibiotic status: Vancomycin IV [Started on - Ongoing] Cefazolin IV [Started on 02/03] 02/03, [Personally reviewed], Chest x-ray showed Cardiomegaly. No pneumonia 02/03, Extremity venous study showed No sonographic evidence of deep venous thrombosis in either lower extremity at this time. Plan discussed with Dr. Herring Thank you for consult. Plan discussed with: AMARJIT Mcallister MD Feb 04, 2025 12:28
--- NOTE | 2025-02-04 14:52 | DVHSR ---
APPROVED REPORT EXAM: LIMITED Two-dimensional and M-mode echocardiogram with Doppler and color Doppler. Blood Pressure: 171/64 mmHg INDICATION Chest Pain HTN EMERGENCY RISK FACTORS Height: 5' 8", Weight: 150 DIMENSIONS LVDd4.5 (3.8-5.7cm)LA (2D)3.8 (1.9-4.0cm)Aortic Root3.4 (2.0-3.7cm) LVDs2.7 (2.5-4.0cm)LA (MM) (1.9-4.0cm)Aortic Cusp Exc1.9 (1.5-2.0cm) EF (%) 70.0 (55-70%)Rt. Atrium3.4 (1.9-4.0cm)Asc. Aorta cm IVSd1.8 (0.7-1.1cm)RV (D) (1.8-2.4cm) PWd1.7 (0.7-1.1cm) Mitral Valve MitralMitral Stenosis E wave0.70m/sMV Mean GR.mmHg A wave1.10m/sMV Peak GR.mmHg E/A ratio0.62D MVAcm2 Aortic Valve Aortic ValveAortic Stenosis V11.00m/Ana Mean GR.6mmHg V21.50m/Ana Peak GR.10mmHg LVOT Diameter2.5 (1.8-2.4cm)Doppler AVA3.27cm2 AI P 1/2 Rsre239.10ms Pulmonic Valve V21.70m/s Other Information Quality : Technically LimitedRhythm : Technically limited study due to patients breathing. Conclusion Technically difficult study with poor cardiac visualization LVEF likely grossly normal 50-55%. There is yagw-uy-nyiuxhhu left ventricular hypertrophy. Moderate diastolic dysfunction Right ventricular size and function grossly normal
[2025-02-04] MEDS: ceFAZolin 2 GM/D5W50ml 50 ML IV ONE (16:35)
[2025-02-04] MEDS ORDERED: VANCOMYCIN 1GM/200ML PM 200 ML IV SCH (22:00)
[2025-02-04] MEDS: ceFAZolin 2 GM/D5W50ml 50 ML IV SCH (22:00)
[2025-02-04 23:15] VITALS: BP 175/77; PULSE 87; RESP 17; TEMP 98.6; O2SAT 94
[2025-02-04 23:27] VITALS: BP 175/77; PULSE 110; PULSE 87; RESP 17; TEMP 98.6; O2SAT 94
[2025-02-04] MEDS: ATORVASTATIN 20 MG TAB PO SCH (23:56)
[2025-02-05] VITALS (8 sets, daily range): BP systolic 97–201; BP diastolic 57–89; PULSE 55–155; RESP 16–18; TEMP 98.2–98.7; O2SAT 91–100
[2025-02-05] MEDS ORDERED: CLON0.2T PO (00:37)
[2025-02-05] MEDS ORDERED: LABETALOL HCL 20 MG/4 ML VL IV PRN (02:30)
[2025-02-05 08:09] LABS: Basophils # (auto) 0 10 ^3/uL (0-0.2); Basophils % (auto) 0.6 % (0.0-2.0); Eosinophils # (auto) 0 10 ^3/uL (0-0.8); Eosinophils % (auto) 0.7 % (0.0-7.0); Hematocrit 48.9 % (41.0-53.0); Hemoglobin 16.4 g/dL (13.5-17.5); Lymphocytes # (auto) 1.2 10 ^3/uL (0.4-5.4); Lymphocytes % (auto) 16.8 % (10.0-50.0); Mean Corpuscular Hemoglobin 28.4 pg (28.0-32.0); Mean Corpuscular Hgb Conc. 33.6 g/dL (32.0-36.0); Mean Corpuscular Volume 84.5 fL (80.0-100.0); Monocytes # (auto) 0.6 10 ^3/uL (0-1.3); Monocytes % (auto) 8.1 % (0.0-12.0); Neutrophils # (auto) 5.1 10 ^3/uL (1.6-8.6); Neutrophils % (auto) 73.8 % (37.0-80.0); Nucleated Red Blood Cells % 0.6 %; Platelet Count (auto) 135 10^3/uL (140-450); Red Blood Cells 5.78 10^6/uL (4.5-5.90); Red Cell Distribution Width 14.7 % (11.8-14.3); White Blood Cell 6.9 10^3/uL (4.4-10.8)
[2025-02-05 08:20] LABS: Anion Gap 10 (5-15); Carbon Dioxide 31 mmol/L (20-31); Chloride 100 mmol/L (98-107); Sodium 141 mmol/L (136-145)
[2025-02-05 08:22] LABS: Calcium 9.7 mg/dL (8.7-10.4)
[2025-02-05 08:26] LABS: BUN/Creatinine Ratio 18.3 (10.0-20.0); Blood Urea Nitrogen 22 mg/dL (9-23)
[2025-02-05 08:30] LABS: Glucose 153 mg/dL (74-106)
[2025-02-05] MEDS ORDERED: cefTRIAXone 1GM/50ML D5W 50 ML IV SCH (09:00)
--- NOTE | 2025-02-05 09:59 | DVHPN2 ---
Progress Note - Dictate Date Seen: Feb 05, 2025 Medical Necessity Reason Pt with a Central, PICC or Fol: No Subjective pending Lexiscan results at bedside vital signs Vital Sign Date Time Temp Pulse Resp B/P (MAP) Pulse Ox O2 Delivery O2 Flow Rate FiO2 02/05/25 05:39 99/56 02/05/25 05:00 98.5 105 18 94 98.5 02/04/25 23:27 Room Air* 1 N/A Nasal Cannula* Total Intake and Output 02/04/25 02/04/25 02/05/25 15:00 23:00 07:00 Intake Total 200 ml 50 ml 0 ml Balance 200 ml 50 ml 0 ml medications Current Medications Medications Dose Ordered Sig/Lucy Route Start Time Stop Time Status Last Admin Dose Admin Acetaminophen 650 mg Q6HP PRN PO 02/03/25 21:15 Ondansetron HCl 4 mg Q4HP PRN IV 02/03/25 21:15 Morphine Sulfate 2 mg Q4HPRN PRN IV 02/03/25 21:15 Nitroglycerin 0.4 mg Q5MINP PRN SL 02/03/25 21:15 Hold Morphine Sulfate 2 mg Q30M PRN IV 02/03/25 21:15 Aspirin 81 mg DAILY PO 02/04/25 10:00 02/04/25 11:42 81 MG Atorvastatin Calcium 40 mg HS PO 02/04/25 22:00 02/04/25 23:56 40 MG Nifedipine 90 mg DAILY PO 02/04/25 10:00 02/04/25 11:39 90 MG Prazosin HCl 2 mg TID PO 02/03/25 22:00 02/04/25 23:56 2 MG Donepezil HCl 10 mg DAILY PO 02/04/25 10:00 02/04/25 11:38 10 MG Lorazepam 0.5 mg BIDP PRN PO 02/03/25 21:15 Diagnostic Test (Pha) 1 strip ACHS 02/03/25 22:00 02/04/25 22:00 1 STRIP Insulin Human Regular ACHS SC 02/03/25 22:00 02/04/25 17:42 2 UNITS Dextrose 50 ml UD PRN IV 02/03/25 21:15 Clonidine HCl 0.2 mg BID PRN PO 02/03/25 22:45 02/04/25 03:42 0.2 MG Enoxaparin Sodium 40 mg DAILY SC 02/04/25 10:00 02/04/25 11:38 40 MG Pantoprazole Sodium 40 mg DAILY IV 02/04/25 10:00 02/04/25 11:37 40 MG Cefazolin Sodium/ Dextrose 50 ml @ 50 mls/hr Q8HR IV 02/04/25 22:00 Labetalol HCl 10 mg Q2HPRN PRN IV 02/05/25 02:30 objective General Appearance: Alert,, Cooperative HEENT: Atraumatic, PERRLA Respiratory: Clear to auscultation, Normal air movement Cardiovascular: Regular rate, Normal S1, Normal S2 Abdominal: Normal bowel sounds, Soft, No tenderness Extremities: Other (Left lower extremity trace edema. Right lower extremity scabbing with surrounding erythematous changes) Neuro: Other (At baseline s/p cva) bed bound, Psych/Mental Status: Mood NL laboratory and microbiology Laboratory Tests 02/05/25 07:01 Test 02/05/25 07:01 Range/Units Serum Glucose 153 H 74-106 mg/dL Assessment/Plan Patient is a 84-year-old male with chest pain ;ACS rule out Cellulitis of left leg Bilateral leg edema chronic leg scabs DNR Recommendations: pending Lexiscan results chest pain is better he is chronically bedbound due to stroke leg edema is improved, discussed with who is at bedside on IV Cefazolin, when ready for discharge ok to taper to oral keflex for 3 more days. cont wound care Antibiotic status: Vancomycin IV [Started on - 02/04] Cefazolin IV [Started on 02/03] 02/03, Chest x-ray showed Cardiomegaly. No acute cardiopulmonary disease. 02/03, Extremity venous study showed No sonographic evidence of deep venous thrombosis in either lower extremity at this time. plan discussed with , RN and Dr Herring Spent >50 minutes during the encounter Thank you for consult. Plan discussed with: Spouse, Other AMARJIT HYDE MD Feb 05, 2025 09:59
[2025-02-05] MEDS: REGADENOSON 0.4 MG/5 ML SYRG IV ONE ×2 (10:05→10:12)
--- NOTE | 2025-02-05 11:40 | ECG ---
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
[2025-02-05] MEDS: MAGNESIUM SULFATE 1GM/100ML 100 ML IV ONE (11:42)
[2025-02-05] MEDS ORDERED: CITA10TA6 PO (13:27)
[2025-02-05] MEDS ORDERED: CEPH500C PO (15:25)
--- NOTE | 2025-02-05 15:27 | DVHDS2 ---
Discharge Summary Date of Admission Feb 03, 2025 at 21:04 Date of Discharge: Feb 05, 2025 Labs/Diagnostic Data: Laboratory Results Test 02/05/25 12:03 02/05/25 07:01 02/04/25 08:47 02/04/25 04:58 POC Glucose 162 mg/dl (70-106) White Blood Count 6.9 10^3/uL (4.4-10.8) Red Blood Count 5.78 10^6/uL (4.5-5.90) Hemoglobin 16.4 g/dL (13.5-17.5) Hematocrit 48.9 % (41.0-53.0) Mean Corpuscular Volume 84.5 fL (80.0-100.0) Mean Corpuscular Hemoglobin 28.4 pg (28.0-32.0) Mean Corpuscular Hemoglobin Concent 33.6 g/dL (32.0-36.0) Red Cell Distribution Width 14.7 % (11.8-14.3) Platelet Count 135 10^3/uL (140-450) Mean Platelet Volume 9.5 fL (6.9-10.8) Neutrophils (%) (Auto) 73.8 % (37.0-80.0) Lymphocytes (%) (Auto) 16.8 % (10.0-50.0) Monocytes (%) (Auto) 8.1 % (0.0-12.0) Eosinophils (%) (Auto) 0.7 % (0.0-7.0) Basophils (%) (Auto) 0.6 % (0.0-2.0) Neutrophils # (Auto) 5.1 10 ^3/uL (1.6-8.6) Lymphocytes # (Auto) 1.2 10 ^3/uL (0.4-5.4) Monocytes # (Auto) 0.6 10 ^3/uL (0-1.3) Eosinophils # (Auto) 0 10 ^3/uL (0-0.8) Basophils # (Auto) 0 10 ^3/uL (0-0.2) Nucleated Red Blood Cells 0.6 % Sodium Level 141 mmol/L (136-145) Potassium Level 4.0 mmol/L (3.5-5.1) Chloride Level 100 mmol/L (98-107) Carbon Dioxide Level 31 mmol/L (20-31) Anion Gap 10 (5-15) Blood Urea Nitrogen 22 mg/dL (9-23) Creatinine 1.20 mg/dL (0.700-1.30) Glomerular Filtration Rate Calc 60 mL/min (>90) BUN/Creatinine Ratio 18.3 (10.0-20.0) Serum Glucose 153 mg/dL (74-106) Calcium Level 9.7 mg/dL (8.7-10.4) Magnesium Level 1.8 mg/dL (1.6-2.6) Troponin I High Sensitivity 76 ng/L (</=54) Triglycerides Level 111 mg/dL (< 150) Cholesterol Level 230 mg/dL (< 200) LDL Cholesterol 157 mg/dL (< 100) HDL Cholesterol 57 mg/dL (40-59) Hemoglobin A1c 6.1 % A1C (<5.7) B-Type Natriuretic Peptide 334.04 pg/mL (0-100) Thyroid Stimulating Hormone (TSH) 0.32 uIU/mL (0.55-4.78) Other Laboratory Tests 02/05/25 07:01 Brief Hx & Hospital Course: 84-year-old male with a known history of hypertension, dyslipidemia, previous history of CVA with right-sided deficit, insulin-dependent diabetes mellitus type 2, anxiety disorder initially present with the hospital with chest pain found to have hypertensive urgency requiring nicardipine drip. Patient has a elevated troponin eventually cardiology was consulted. Patient underwent Cardiolite stress test which currently report is pending once cleared by Cardiology patient can be discharged. Patient does have DNR DNI status. Patient's daughter was updated at bedside. Patient does have right lower extremity cellulitis who received IV antibiotics which will be switched to p.o. antibiotics for three more days. Condition at Discharge: Stable Final Diagnosis/Problems List 84-year-old male with a known history of hypertension, dyslipidemia, previous history of CVA with right-sided deficit, insulin-dependent diabetes mellitus type 2, anxiety disorder initially present with the hospital with chest pain found to have 1. Hypertensive urgency 2. NSTEMI type 2 3. Dyslipidemia 4. History of CVA with right-sided deficit 5. Acute kidney injury suspected secondary to vasomotor nephropathy 6. Diabetes mellitus type 2 7. History of CVA with right-sided deficit Discharge Disposition: Home SNF Discharge Will this Physician continue t: No Discharge Instruct/Medications Diet: Cardiac 2g Na,low cholest Activity: No Restrictions, As Tolerated Follow Up/Referral: With the PCP in 1-2 weeks Medications: Keflex as prescribed Discharge Statement: "Patient was advised to return to the ER or call 911 if any headaches, dizziness, shortness of breath, chest pain, abdominal pain, bleeding, fevers, or worsening of medical condition. Patient was counseled about treatment plan, medications, possible side effects, patientverbalized understanding. All questions were answered to the best of my ability. This discharge took greater then 30 minutes in planning, reviewing documentation, counseling the patient, and discussing with other team members." ASSESSMENT ASSESSMENT Assessment 84-year-old male with a known history of hypertension, dyslipidemia, previous history of CVA with right-sided deficit, insulin-dependent diabetes mellitus type 2, anxiety disorder initially present with the hospital with chest pain found to have 1. Hypertensive urgency 2. NSTEMI type 2 3. Dyslipidemia 4. History of CVA with right-sided deficit 5. Acute kidney injury suspected secondary to vasomotor nephropathy 6. Diabetes mellitus type 2 7. History of CVA with right-sided deficit Date of Service: Feb 05, 2025 Billing Provider: DAVID GALVEZ MD Common Visit Codes: NOT BILLABLE DAVID GALVEZ MD Feb 05, 2025 15:27
[2025-02-05] MEDS: CEPHALEXIN 250 MG CAP PO SCH (17:55)
--- NOTE | 2025-02-05 22:13 | DVHOP ---
DATE OF SURGERY: 02/05/2025 INDICATION: EKG stress test was done which was normal. DESCRIPTION OF PROCEDURE: The patient underwent IV adenosine Cardiolite stress test in a standard manner. With the help of the was done which include long axis, short axis, and horizontal axial view. The patient was given IV adenosine. Normal perfusion of the anterior wall, lateral wall, inferior posterior wall and septum. CONCLUSION: * Normal myocardial perfusion scan. * There is no evidence of any perfusion defect. Please correlate the ejection fraction with echo Doppler study. Lazara Appiah MD MP/JONATAN/PAUL/JUVE TID: [id number] RECEIPT: [id number] MTDD
[2025-02-06 01:00] VITALS: BP 108/54; PULSE 84; RESP 18; TEMP 98.4; O2SAT 97
[2025-02-06 05:00] VITALS: BP 110/57; PULSE 110; RESP 18; TEMP 98.4; O2SAT 99
[2025-02-06 07:25] LABS: Basophils # (auto) 0.1 10 ^3/uL (0-0.2); Basophils % (auto) 0.7 % (0.0-2.0); Chloride 102 mmol/L (98-107); Eosinophils # (auto) 0.2 10 ^3/uL (0-0.8); Eosinophils % (auto) 1.7 % (0.0-7.0); Hematocrit 47.6 % (41.0-53.0); Hemoglobin 16.1 g/dL (13.5-17.5); Lymphocytes # (auto) 1.2 10 ^3/uL (0.4-5.4); Lymphocytes % (auto) 14.1 % (10.0-50.0); Mean Corpuscular Hemoglobin 28.9 pg (28.0-32.0); Mean Corpuscular Hgb Conc. 33.9 g/dL (32.0-36.0); Mean Corpuscular Volume 85.3 fL (80.0-100.0); Monocytes # (auto) 0.7 10 ^3/uL (0-1.3); Monocytes % (auto) 8.1 % (0.0-12.0); Neutrophils # (auto) 6.6 10 ^3/uL (1.6-8.6); Neutrophils % (auto) 75.4 % (37.0-80.0); Platelet Count (auto) 132 10^3/uL (140-450); Red Blood Cells 5.58 10^6/uL (4.5-5.90); Red Cell Distribution Width 14.7 % (11.8-14.3); Sodium 140 mmol/L (136-145); White Blood Cell 8.8 10^3/uL (4.4-10.8)
[2025-02-06 07:26] LABS: Calcium 9.2 mg/dL (8.7-10.4)
[2025-02-06 07:31] LABS: BUN/Creatinine Ratio 18.3 (10.0-20.0); Blood Urea Nitrogen 21 mg/dL (9-23)
[2025-02-06 07:39] LABS: Glucose 149 mg/dL (74-106)
[2025-02-06 07:47] LABS: Anion Gap 9 (5-15); Carbon Dioxide 29 mmol/L (20-31)
[2025-02-06 08:00] VITALS: PULSE 112; PULSE 99; RESP 16; O2SAT 95
--- NOTE | 2025-02-06 08:18 | DVHPN2 ---
Progress Note - Dictate Date Seen: Feb 06, 2025 Medical Necessity Reason Pt with a Central, PICC or Fol: No Subjective Pending Lexiscan results vital signs Vital Sign Date Time Temp Pulse Resp B/P (MAP) Pulse Ox O2 Delivery O2 Flow Rate FiO2 02/06/25 06:19 110/57 02/06/25 05:00 98.4 110 18 99 98.4 02/05/25 20:00 Nasal Cannula* 2 28 Total Intake and Output 02/05/25 02/05/25 02/06/25 15:00 23:00 07:00 Intake Total 0 ml 240 ml 400 ml Output Total 250 ml 0 ml Balance 0 ml -10 ml 400 ml medications Current Medications Medications Dose Ordered Sig/Lucy Route Start Time Stop Time Status Last Admin Dose Admin Acetaminophen 650 mg Q6HP PRN PO 02/03/25 21:15 Ondansetron HCl 4 mg Q4HP PRN IV 02/03/25 21:15 Morphine Sulfate 2 mg Q4HPRN PRN IV 02/03/25 21:15 Nitroglycerin 0.4 mg Q5MINP PRN SL 02/03/25 21:15 Hold Morphine Sulfate 2 mg Q30M PRN IV 02/03/25 21:15 Aspirin 81 mg DAILY PO 02/04/25 10:00 02/05/25 11:40 81 MG Atorvastatin Calcium 40 mg HS PO 02/04/25 22:00 02/05/25 22:07 40 MG Nifedipine 90 mg DAILY PO 02/04/25 10:00 02/05/25 11:40 90 MG Prazosin HCl 2 mg TID PO 02/03/25 22:00 02/06/25 06:19 2 MG Donepezil HCl 10 mg DAILY PO 02/04/25 10:00 02/05/25 11:41 10 MG Lorazepam 0.5 mg BIDP PRN PO 02/03/25 21:15 Diagnostic Test (Pha) 1 strip ACHS 02/03/25 22:00 02/06/25 06:37 1 STRIP Insulin Human Regular ACHS SC 02/03/25 22:00 02/06/25 06:34 3 UNITS Dextrose 50 ml UD PRN IV 02/03/25 21:15 Clonidine HCl 0.2 mg BID PRN PO 02/03/25 22:45 02/05/25 13:30 0.2 MG Enoxaparin Sodium 40 mg DAILY SC 02/04/25 10:00 02/05/25 11:42 40 MG Pantoprazole Sodium 40 mg DAILY IV 02/04/25 10:00 02/05/25 11:42 40 MG Labetalol HCl 10 mg Q2HPRN PRN IV 02/05/25 02:30 Cephalexin 500 mg Q6HR PO 02/05/25 18:00 02/06/25 06:19 500 MG objective General Appearance: Alert,, Cooperative HEENT: Atraumatic, PERRLA Respiratory: Clear to auscultation, Normal air movement Cardiovascular: Regular rate, Normal S1, Normal S2 Abdominal: Normal bowel sounds, Soft, No tenderness Extremities: Other (Left lower extremity trace edema. Right lower extremity scabbing with surrounding erythematous changes) Neuro: Other (At baseline s/p cva) bed bound, Psych/Mental Status: Mood NL laboratory and microbiology Laboratory Tests 02/06/25 05:54 Test 02/06/25 05:54 Range/Units Serum Glucose 149 H 74-106 mg/dL Assessment/Plan Patient is a 84-year-old male with chest pain ;ACS rule out Cellulitis of left leg Bilateral leg edema chronic leg scabs DNR Recommendations: pending Lexiscan results chest pain is better he is chronically bedbound due to stroke leg edema is improved, on IV Cefazolin, when ready for discharge ok to taper to oral keflex for 3 more days. Started on Keflex yesterday. cont wound care Antibiotic status: Ceftriaxone IV [Started on 02/05 - Ongoing] Keflex IV [Started on 02/05 - Ongoing] Vancomycin IV [Started on - 02/04] Cefazolin IV [Started on 02/03 - 02/05] 02/03, Chest x-ray showed Cardiomegaly. No acute cardiopulmonary disease. 02/03, Extremity venous study showed No sonographic evidence of deep venous thrombosis in either lower extremity at this time. A total of 35minutes was spent performing this encounter on this date of service. My evaluation of this patient included review of the chart, history, laboratory, imaging findings and discussion Dr Herring, treatment team placing orders and documenting the plan. Thank you for consult. Dietary Evaluation Review Comments: Follow pureed CCHO-45 diet, supplement with Cas BID for wound healing. Expected Outcomes/Goals: gradual wt loss, gradual healed wounds Plan discussed with: AMARJIT Mcallister MD Feb 06, 2025 08:18
[2025-02-06 09:02] VITALS: BP 160/68; PULSE 98; RESP 16; TEMP 98.3; O2SAT 99
--- NOTE | 2025-02-08 10:46 | ECG ---
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
--- NOTE | 2025-02-09 08:05 | DVHSR ---
APPROVED REPORT Exam: Nuclear Stress Test BMI: 0 Stress Test Details Stress Test: Pharmacologic stress testing performed using 0.4 mg of regadenoson per 5 mL given IV ov er 10 seconds. HR Resting HR: 102 bpmMax Heart Rate (APMHR): 136.025955 bpm Max HR Achieved: 130 bpmTarget HR (85% APMHR): 115.912260 bpm % of APMHR: 95.59 Recovery HR: 110 bpm BP Resting BP: 159/88 mmHg Recovery BP: 169/101 mmHg ECG Resting ECG: Atrial Fibrillation Clinical Reason for Termination: Completed protocol Nurse Comments Recieved pt. from [facility]. A/Ox4 on RA. Connected to manager monitoring, VS stable. PIV flushes well. Re viewed POC. Pt. verbalized understanding of procedure including risks and side effects, agrees for st ress testing. Lexiscan stress test performed per protocol. [facility] tech administered Cardiolite. Pt. tolerated well . Pt. stable, no change on exam. VS returned to baseline. Transferred to [facility] via wheelchair w/ te ch. Stress ECG Conclusion ecg shows afib rvr lvef 31% correlate with echo, lvef can be worse with afib /arrhythmia on nuclear no severe ischemia noted NM EXAM: Myocardial Perfusion REST/STRESS Imaging Protocol: Rest Tc-99m/Stress Tc-99m 1 day Resting Data Rest SPECT myocardial perfusion imaging was performed in supine position 60 minutes following the int ravenous injection of 12 mCi of Tc-99m Sestamibi. Time of rest injection: 08:14 Date: 02/05/2025 Time of rest imagin:14 Date: 02/05/2025 Administration Route: IV Administration Site: Left Arm Pharmacologic Stress Pharmacologic stress test was performed by injecting Regadenoson 0.4 mg IV push followed by the intra venous injection of 34.3 mCi of Tc-99m Sestamibi. Time of stress injection: 10:11 Date: 02/05/2025 Time of stress imagin:11 Date: 02/05/2025 Administration Route: IV Administration Site: Left Arm The images were gated to evaluate regional wall motion and calculate left ventricular ejection fracti on. Stress only was performed in the Supine position. Nuclear Conclusion Nuclear Findings: negative for ischemia ecg shows afib rvr lvef 31% correlate with echo, lvef can be worse with afib /arrhythmia on nuclear no severe ischemia noted
== END 2025-02-06 12:30 | disposition left against medical advice (07) | DRG 280 ==
LOC: ER 12:40 → EDBD 12:40 → OVERFLOW 21:04 → TELE-CENTR 02-04 22:37
PROVIDERS: ADMIT Nurse Practitioner Family; ATTEND Nurse Practitioner Family
DX: I16.0 Hypertensive urgency (principal); N17.0 Acute kidney failure with tubular necrosis; I21.A1 Myocardial infarction type 2; I16.1 Hypertensive emergency; I50.32 Chronic diastolic (congestive) heart failure; L03.116 Cellulitis of left lower limb; L03.115 Cellulitis of right lower limb; I69.351 Hemiplegia and hemiparesis following cerebral infarction affecting right dominant side; Z66 Do not resuscitate; I11.0 Hypertensive heart disease with heart failure; E78.5 Hyperlipidemia, unspecified; Z53.29 Procedure and treatment not carried out because of patient's decision for other reasons; E11.9 Type 2 diabetes mellitus without complications; I49.3 Ventricular premature depolarization; F41.9 Anxiety disorder, unspecified; I25.10 Atherosclerotic heart disease of native coronary artery without angina pectoris; I44.0 Atrioventricular block, first degree; I45.10 Unspecified right bundle-branch block; F32.A Depression, unspecified; Z88.8 Allergy status to other drugs, medicaments and biological substances; Z79.899 Other long term (current) drug therapy; Z79.4 Long term (current) use of insulin; Z79.82 Long term (current) use of aspirin; Z83.3 Family history of diabetes mellitus; I25.2 Old myocardial infarction
CPT/HCPCS: 36415; 71045; 78452; 80048; 80061; 82962; 83036; 83735; 83880; 84443; 84484; 85025; 87040; 93005; 93017; 93306; 93970; 96365; 96375; 99291; G0378; J1815; J2405; J2470

== ENCOUNTER 2025-06-19 11:55 | Inpatient (IN) | payer OTHER, MEDICAID ==
[~2025-06-19] VITALS: Ht 157.5 cm; Wt 75.8 kg
[2025-06-19 11:55] VITALS: PULSE 67; RESP 18; O2SAT 98
[~2025-06-19 11:55] MED LIST changes: -AMLO1TAB23 PO; -ATOR40TA52 PO; +CEPH500C PO; +CITA10TA6 PO; -CITA10TA8 PO; -DIGE1CAP PO; -FERR1TAB36 PO; -ISOS1TAB29 PO; -LOS25T PO; -OMEP20CA74 PO
[2025-06-19 12:30] VITALS: PULSE 110; RESP 29; O2SAT 96
[2025-06-19] MEDS: LABETALOL HCL 20 MG/4 ML VL IV ONE (12:44)
--- NOTE | 2025-06-19 12:49 | ED.PDOC ---
Altered Mental Status HPI Comments 84-year-old male is brought in by ambulance from private residence for chief complaint of altered mental status. Per EMS report, significant history for CHF, CVA w/ right sided deficits, DM II - insulin dependent, HLD, HTN, STEMI II, and bed-bound with the assisted Home Care. Patient's daughter called after endorsing on patient, suddenly, becoming altered after grabbing his chest and vomiting 1x time, while in bed. Patient was noted to have been found hypertensive at 200 systolic on scene. All other vitals were noted to have been stable within normal limits. No further acute symptoms reported. 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 Chief Complaint: ALOC Time Seen by MD: 12:40 Primary Care Provider: UNKNOWN Reviewed Notes: Nurses Notes, Medications, Allergies Allergies: Coded Allergies: Carvedilol (Verified Allergy, Unknown, 01/30/23) Ezetimibe (Verified Allergy, Unknown, 01/30/23) Hydralazine (Verified Allergy, Unknown, 01/30/23) Isosorbide Nitrate (Verified Allergy, Unknown, 01/30/23) Lactulose (Verified Allergy, Unknown, 01/30/23) Lisinopril (Verified Allergy, Unknown, 01/30/23) Home Meds Active Scripts Cephalexin Monohydrate (Cephalexin) 500 Mg Cap, 1 CAP PO TID for 3 Days, #9 CAP Prov:DAVID GALVEZ MD 02/05/25 Nifedipine (Nifedipine Er) 90 Mg Tab, 1 TAB PO DAILY, #60 TAB 5 Refills Prov:ARLEN LANGE MD 02/01/23 Reported Medications Citalopram Hydrobromide (Citalopram) 10 Mg Tab, 20 MG PO DAILY, TAB 02/05/25 Vqamaliywtp-Kjrhubtyusic-Vlwxw (Trelegy Ellipta 200-62.5-25 Mcg/INH) 1 Aer Aer, 1 PUFF INH DAILY for 30 Days, #60 02/05/25 Donepezil Hydrochloride (Donepezil Hydrochloride) 10 Mg Tab, 1 TAB PO DAILY for 90 Days, #90 02/05/25 Ggpiz-4-Lurx Ethyl Esters (Xqdnq-0-Bmsy Ethyl Esters) 1 Gm Cap, 1 CAP PO BID for 90 Days, #180 02/05/25 Lorazepam (Lorazepam) 1 Mg Tab, 1 TAB PO DAILYP for 15 Days, #15 02/05/25 Prazosin HCl (Prazosin Hydrochloride) 2 Mg Cap, 1 CAP PO TID for 30 Days, #90 02/05/25 Irbesartan (IRBESARTAN) 300 Mg Tab, 1 TAB PO DAILY for 30 Days, #30 02/05/25 Clonidine Hydrochloride (Clonidine Hcl) 0.3 Mg Tab, 1 TAB PO TID for 90 Days, #270 02/05/25 Tirzepatide (Mounjaro) 15 Mg/0.5 Ml Inj, 15 MG SC QWEEKLY for 28 Days, #2 02/05/25 Cobalamine Combinations (B-12 1000) 1,000 Mcg Sub, 1000 MCG SL, INJ 01/31/23 Nutritional Supplements ([place] Oil) 1,000 Mg Cap, 1000 MG PO, CAP 01/31/23 Insulin Glargine (Basaglar Kwikpen) 100 Unit/Ml Inj, 13 UNIT SC 01/31/23 Insulin Lispro (Human) (Humalog) 100 Mg/Ml Inj, 0 SC TIDWM, INJ 4 UNITS SC BS 180-220 9 UNITS SC BS ABOVE 251 07/22/15 Aspirin (Aspir-81) 81 Mg Tab, 1 TAB PO DAILY, #30 TAB 5 Refills 07/22/15 Information Source: Emergency Med Personnel Mode of Arrival: EMS Severity: Moderate Timing: Hours Duration: Since onset Prehospital treatment: 12 Lead EKG, Accucheck, Account Developer Past Medical History PAST MEDICAL HISTORY: Anxiety, CHF, CVA (With right-sided deficits), Depression, DM (Type 2-insulin dependent), High Lipids, HTN, MT (NSTEMI type 2) Surgical History: Denies all surgeries Family History Family History: Reviewed,noncontributory to illness, Unknown Social History Smoker: Non-Smoker Alcohol: Denies ETOH Use Drugs: Denies Drug Use Lives In: Home All Other Systems: Reviewed and Negative (Comprehensive review of systems are negative unless otherwise stated in HPI) Physical Exam General Appearance: Moderate Distress HEENT: Normal ENT Inspection, Pharynx Normal, TMs Normal Neck: Full Range of Motion, Non-Tender, Normal, Normal Inspection Respiratory: Chest Non-Tender, Lungs Clear, No Accessory Muscle Use, No Respiratory Distress, Normal Breath Sounds Cardiovascular: No Edema, No JVD, No Murmur, No Gallop, Normal Peripheral Pulses, Regular Rate/Rhythm Breast Exam: Deferred Gastrointestinal: No Organomegaly, Non Tender, No Pulsatile Mass, Normal Bowel Sounds, Soft Genitalia: Deferred Pelvic: Deferred Rectal: Deferred Extremities: No calf tenderness, No pedal edema Musculoskeletal : Apperance: Normal Neurologic: Disoriented (Dementia), Motor Weakness (Bilateral lower extremity right upper extremity old) Cerebellar Function: NOT DONE Reflexes: NOT DONE Skin: Normal Color Peripheral Pulses: 3+ Radial (R), 3+ Radial (L) Lymphatic: No Adenopathy EKG EKG : Pulse Rate (adult): 108 [place]: Normal Cardiac Rhythm: Afib Block: RBBB Hypertrophy: None ST: Normal Was a procedure done? Was a procedure done?: No Differential Diagnosis (ALOC) Differential Diagnosis: Dehydration, Hypoglycemia, DKA, Encephalopathy, Sepsis, Hypoxemia, Seizure, CVA, Drug Overdose, ETOH Intoxication, Heart Failure, Renal Failure X-Ray, Labs, Meds, VS Vital Signs Date Time Temp Pulse Resp B/P (MAP) Pulse Ox O2 Delivery O2 Flow Rate FiO2 06/19/25 17:00 67 23 167/79 (108) 97 06/19/25 16:00 54 20 162/70 (100) 97 06/19/25 16:00 52 06/19/25 15:30 57 22 153/71 (98) 98 06/19/25 15:00 64 22 177/83 (114) 97 06/19/25 14:13 84 233/108 06/19/25 14:12 84 233/108 06/19/25 14:00 80 23 233/109 (150) 97 06/19/25 13:00 72 22 208/105 (139) 97 06/19/25 12:49 108 06/19/25 12:44 110 254/129 06/19/25 12:30 110 29 96 Nasal Cannula* 2 28 06/19/25 12:30 110 29 254/129 (170) 96 06/19/25 12:08 108 06/19/25 11:55 99.6 108 22 242/108 96 99.6 Lab Test 06/19/25 16:32 06/19/25 14:25 06/19/25 13:09 Range/Units Troponin I High Sensitivity 870 *H 778 *H 757 *H </=54 ng/L White Blood Count 9.6 4.4-10.8 10^3/uL Red Blood Count 5.88 4.5-5.90 10^6/uL Hemoglobin 17.5 13.5-17.5 g/dL Hematocrit 51.5 41.0-53.0 % Mean Corpuscular Volume 87.5 80.0-100.0 fL Mean Corpuscular Hemoglobin 29.7 28.0-32.0 pg Mean Corpuscular Hemoglobin Concent 33.9 32.0-36.0 g/dL Red Cell Distribution Width 14.2 11.8-14.3 % Platelet Count 191 140-450 10^3/uL Mean Platelet Volume 9.3 6.9-10.8 fL Neutrophils (%) (Auto) 90.8 H 37.0-80.0 % Lymphocytes (%) (Auto) 4.9 L 10.0-50.0 % Monocytes (%) (Auto) 3.9 0.0-12.0 % Eosinophils (%) (Auto) 0.0 0.0-7.0 % Basophils (%) (Auto) 0.4 0.0-2.0 % Neutrophils # (Auto) 8.8 H 1.6-8.6 10 ^3/uL Lymphocytes # (Auto) 0.5 0.4-5.4 10 ^3/uL Monocytes # (Auto) 0.4 0-1.3 10 ^3/uL Eosinophils # (Auto) 0 0-0.8 10 ^3/uL Basophils # (Auto) 0 0-0.2 10 ^3/uL Nucleated Red Blood Cells 0.1 % Sodium Level 145 136-145 mmol/L Potassium Level 4.3 3.5-5.1 mmol/L Chloride Level 104 98-107 mmol/L Carbon Dioxide Level 25 20-31 mmol/L Anion Gap 16 H 5-15 Blood Urea Nitrogen 21 9-23 mg/dL Creatinine 1.22 0.700-1.30 mg/dL Glomerular Filtration Rate Calc 58 >90 mL/min BUN/Creatinine Ratio 17.2 10.0-20.0 Serum Glucose 206 H 74-106 mg/dL Calcium Level 9.1 8.7-10.4 mg/dL Current Medications Medications (Trade) Dose Ordered Sig/Lucy Route Start Time Stop Time Status Last Admin Labetalol HCl (Labetalol HCl) 10 mg ONCE ONCE IV 06/19/25 12:45 06/19/25 12:46 DC 06/19/25 12:44 Sodium Chloride 1,000 ml @ 150 mls/hr Q6H40M ONCE IV 06/19/25 13:00 06/19/25 19:39 06/19/25 13:32 Ondansetron HCl (Zofran) 4 mg ONCE ONCE IV 06/19/25 13:00 06/19/25 13:01 DC 06/19/25 13:32 Labetalol HCl 250 mg/Sodium Chloride 250 ml @ 60 mls/hr Q4H10M ONCE IV 06/19/25 13:00 06/19/25 17:09 DC 06/19/25 14:13 Pantoprazole Sodium 50 ml @ 10 mls/hr Q5H ONCE IV 06/19/25 17:00 06/19/25 21:59 06/19/25 17:17 Prochlorperazine Edisylate (Compazine Inj) 10 mg ONCE ONCE IV 06/19/25 17:00 06/19/25 17:01 DC 06/19/25 17:17 Patient has dementia. History of stroke. Blood sugar elevated. Placed on oxygen. Blood pressure elevated. Was given labetalol. Cardiac marker elevated. He is on blood thinner. Stroke had affected his extremities. He is bed ridden. EKG reviewed does not show any acute changes. Waiting for family. Continue monitoring. Time of 1ST Reevaluation: 13:10 Reevaluation 1ST: Unchanged Patient Education/Counseling: Other (Patient is altered) Family Education/Counseling: No Family Present SEPSIS Sepsis Screen Date sepsis recognized/suspect: Jun 19, 2025 Time Sepsis recognized/suspect: 1155 Recent Procedure: No On Antibiotic Therapy: No Respiratory Rate >20: Yes Heart Rate >90: Yes Temp<36 C (96.8 F) or >38.3 C: No SBP <90 or MAP <65 mmHG: No New Acute Mental Status Change: Yes Is the patient on CPAP, BIPAP,: No Physician Orders Electrocardigram (06/19/25 12:47) Head Without Contrast (06/19/25 12:50) Chest Portable (06/19/25 12:50) Sodium Chloride 0.9% (06/19/25 13:00) Urinalysis (06/19/25 13:26) Pantoprazole 40mg/50ml Ns Ae (Protonix) (06/19/25 17:00) Vital Signs Date Time Temp Pulse Resp B/P (MAP) Pulse Ox O2 Delivery O2 Flow Rate FiO2 06/19/25 17:00 67 23 167/79 (108) 97 06/19/25 16:00 54 20 162/70 (100) 97 06/19/25 16:00 52 06/19/25 15:30 57 22 153/71 (98) 98 06/19/25 15:00 64 22 177/83 (114) 97 06/19/25 14:13 84 233/108 06/19/25 14:12 84 233/108 06/19/25 14:00 80 23 233/109 (150) 97 06/19/25 13:00 72 22 208/105 (139) 97 06/19/25 12:49 108 06/19/25 12:44 110 254/129 06/19/25 12:30 110 29 96 Nasal Cannula* 2 28 06/19/25 12:30 110 29 254/129 (170) 96 06/19/25 12:08 108 06/19/25 11:55 99.6 108 22 242/108 96 99.6 Laboratory Tests Test 06/19/25 13:09 White Blood Count 9.6 10^3/uL (4.4-10.8) Medications Medications Dose Ordered Sig/Lucy Route Start Time Stop Time Status Last Admin Dose Admin Labetalol HCl 10 mg ONCE ONCE IV 06/19/25 12:45 06/19/25 12:46 DC 06/19/25 12:44 Labetalol HCl 250 mg/Sodium Chloride 250 ml @ 60 mls/hr Q4H10M ONCE IV 06/19/25 13:00 06/19/25 17:09 DC 06/19/25 14:13 Ondansetron HCl 4 mg ONCE ONCE IV 06/19/25 13:00 06/19/25 13:01 DC 06/19/25 13:32 Pantoprazole Sodium 50 ml @ 10 mls/hr Q5H ONCE IV 06/19/25 17:00 06/19/25 21:59 06/19/25 17:17 Prochlorperazine Edisylate 10 mg ONCE ONCE IV 06/19/25 17:00 06/19/25 17:01 DC 06/19/25 17:17 Sodium Chloride 1,000 ml @ 150 mls/hr Q6H40M ONCE IV 06/19/25 13:00 06/19/25 19:39 06/19/25 13:32 Departure 1 Departure Time of Disposition: 15:30 Impression: Primary Impression: Metabolic encephalopathy Additional Impressions: Demand ischemia Uncontrolled diabetes mellitus Qualified Codes: E13.65 - Other specified diabetes mellitus with hyperglycemia Disposition: ADMITTED INPATIENT Admit to: ICU Condition: Guarded Critical Care Note Critical Care Time?: Yes (90 min-critical care time only) Stability Stability form required: No Heart Score Heart Score: Heart Score Response (Comments) Value History Slightly Suspicious 0 EKG Normal 0 Age >65 2 Risk Factors >3 or Hx ASHD 2 Troponin >3 x's Normal limit 2 Total 6 I personally scribed for LAY BENJAMIN MD ([email or web address]) on 06/19/25 at 12:49. Electronically submitted by Chuck Bergman [email or web address]). LAY BENJAMIN MD Jun 19, 2025 12:49
[2025-06-19 13:27] LABS: Hematocrit 51.5 % (41.0-53.0); Hemoglobin 17.5 g/dL (13.5-17.5); Mean Corpuscular Hemoglobin 29.7 pg (28.0-32.0); Mean Corpuscular Volume 87.5 fL (80.0-100.0); Nucleated Red Blood Cells % 0.1 %
[2025-06-19] MEDS: ONDANSETRON HCL 4 MG/2 ML VIAL IV ONE (13:32)
[2025-06-19] MEDS: SODIUM CHLORIDE 0.9% 1,000 ML IV ONE (13:32)
[2025-06-19 13:39] LABS: Chloride 104 mmol/L (98-107); Potassium 4.3 mmol/L (3.5-5.1)
[2025-06-19 13:40] LABS: Anion Gap 16 (5-15); Calcium 9.1 mg/dL (8.7-10.4); Carbon Dioxide 25 mmol/L (20-31)
[2025-06-19 13:42] LABS: Sodium 145 mmol/L (136-145)
[2025-06-19 13:45] LABS: BUN/Creatinine Ratio 17.2 (10.0-20.0); Blood Urea Nitrogen 21 mg/dL (9-23); Glucose 206 mg/dL (74-106)
[2025-06-19] MEDS: LABETALOL INJECTION 250 MG in SODIUM CHL 0.9% 200 ML IV ONE ×2 (14:13→18:44)
--- NOTE | 2025-06-19 14:31 | DVH ---
INDICATION: sob TECHNIQUE: Frontal view of the chest. COMPARISON: XY CHEST PORTABLE on DOS: 02/03/25, XR CHEST 2 VIEW on DOS: 12/14/24, XY CHEST PORTABLE on D OS: 01/30/23, CT ANGIO CHEST CONTRAST on DOS: 10/27/22, CHEST PORTABLE on DOS: 10/26/22 FINDINGS: . The heart and mediastinal contours are grossly unremarkable. There is no evidence of pleural disea se. The lungs are clear. The bony structures of the chest are intact without fracture. IMPRESSION: 1. No evidence of acute disease.
--- NOTE | 2025-06-19 15:02 | DVH ---
EXAM: CT HEAD WITHOUT CONTRAST INDICATION: altered TECHNIQUE: CT of the head without intravenous contrast. Radiation Dose Information: CT Dose: CTDI volume is 48.09 mGy. Dose-length product is 942.38 mGy*cm The dose indicators for CT are the volume Computed Tomography (CT) Dose Index (CTDIvol) and the Dose Length Product (DLP), and are measured in units of mGy and mGy-cm, respectively. These indicators are not patient dose, but values generated from the CT scanner acquisition factors. The report includes radiation exposure data for exposures received during this examination. COMPARISON: CT HEAD WITHOUT CONTRAST on DOS: 01/30/23, BRAIN HEAD WO CONTRAST on DOS: 03/05/22 FINDINGS: There is no evidence of acute intracranial hemorrhage, extra-axial collection, mass effect, midline s hift, herniation or hydrocephalus. The ventricles, sulci and cisterns are age appropriate. The chavez-white differentiation is intact. Patchy periventricular and subcortical white matter hypoattenuation is nonspecific but may be related to small vessel ischemic disease. The visualized paranasal sinuses and mastoid air cells are clear. The surrounding soft tissues and osseous structures are unremarkable. IMPRESSION: 1. No acute intracranial abnormality.
[2025-06-19] MEDS: PANTOPRAZOLE 40mg/50ML NS AE 50 ML IV ONE ×2 (17:17→21:37)
[2025-06-19] MEDS: PROCHLORPERAZINE EDISYLATE 5 MG/ML 2ML VIAL IV ONE (17:17)
[2025-06-19] MEDS ORDERED: ONDANSETRON HCL 4 MG/2 ML VIAL IV PRN (18:45)
[2025-06-19] MEDS ORDERED: MORPHINE SULFATE INJ 2 MG/ml SYRG IV PRN ×2 (18:45)
[2025-06-19] MEDS ORDERED: NITROGLYCERIN 0.4 MG SL TAB SL PRN (18:45)
[2025-06-19] MEDS ORDERED: DEXTROSE (50%) 50ML SYRG IV PRN (18:45)
[2025-06-19] MEDS ORDERED: IPRATROPIUM BROM 0.5 MG/2.5ML INH SOL NEB PRN (18:45)
[2025-06-19] MEDS ORDERED: LORazepam 2MG/ML-1ML VIAL IV PRN (18:45)
[2025-06-19] MEDS ORDERED: ALBUTEROL SULF 2.5 MG/0.5ML(0.5%) NEB SOLN NEB PRN (18:45)
[2025-06-19] MEDS ORDERED: ACETAMINOPHEN 325 MG TAB PO PRN (18:45)
[2025-06-19 19:00] VITALS: BP 190/86; PULSE 76; RESP 18; O2SAT 97
--- NOTE | 2025-06-19 19:31 | DVHHPRES ---
History of Present Illness Resident Creating Document: ELLIOT ROCHE RESIDENT History of Present Illness Eleno Torres is a 84-year-old male, poor historian with a PMH of CHF, recent CVA with right-sided deficits, depression, type 2 DM on insulin, HLD, HTN, AK, anxiety presented to the ED with altered level of consciousness. Patient is poor historian, history obtained from medical records per EMS report patient recently had stroke and bed-bound with the assistance of home care. Per patient's daughter patient becoming altered after grabbing his chest and vomiting 1 time while on bed. Patient was noted to have been found hypertensive at 200 systolic on scene. According to EMS patient is DNI. PMH: As above PSH: Unable to obtain Family history: Unable to obtain Social history: Unable to obtain Allergies: Unable to obtain Home medications: Clonidine, citalopram, lorazepam, aspirin, albuterol, Trelegy, Humulin R, Kwik pen, multivitamin, digestive enzymes, Mounjaro Patient seen and examined at the bedside. Unable to obtain ROS due to patient's clinical status. Review of Systems Allergies: Coded Allergies: Carvedilol (Verified Allergy, Unknown, 01/30/23) Ezetimibe (Verified Allergy, Unknown, 01/30/23) Hydralazine (Verified Allergy, Unknown, 01/30/23) Isosorbide Nitrate (Verified Allergy, Unknown, 01/30/23) Lactulose (Verified Allergy, Unknown, 01/30/23) Lisinopril (Verified Allergy, Unknown, 01/30/23) Medications Current Medications Medications Dose Ordered Sig/Lucy Route Start Time Stop Time Status Last Admin Dose Admin Sodium Chloride 10 ml Q8HR IV 06/19/25 22:00 Ondansetron HCl 4 mg Q4HP PRN IV 06/19/25 18:45 Acetaminophen 650 mg Q6HP PRN PO 06/19/25 18:45 Morphine Sulfate 2 mg Q4HPRN PRN IV 06/19/25 18:45 Nitroglycerin 0.4 mg Q5MINP PRN SL 06/19/25 18:45 UNV Morphine Sulfate 2 mg Q30M PRN IV 06/19/25 18:45 Clonidine HCl 0.3 mg Q7D TD 06/19/25 18:45 UNV Lorazepam 0.5 mg Q6HP PRN IV 06/19/25 18:45 UNV Albuterol 2.5 mg Q6HPRN PRN NEB 06/19/25 18:45 UNV Ipratropium [place] 0.5 mg Q4HPRN PRN NEB 06/19/25 18:45 UNV Diagnostic Test (Pha) 1 strip ACHS 06/19/25 22:00 UNV Insulin Human Regular ACHS SC 06/19/25 22:00 UNV Dextrose 50 ml UD PRN IV 06/19/25 18:45 UNV Cefepime HCl 50 ml @ 12.5 mls/hr Q12HR IV 06/19/25 18:45 UNV Exam Vital Signs Vital Signs Date Time Temp Pulse Resp B/P (MAP) Pulse Ox O2 Delivery O2 Flow Rate FiO2 06/19/25 19:00 76 18 190/86 (120) 97 06/19/25 12:30 Nasal Cannula* 2 28 06/19/25 11:55 99.6 99.6 Exam Pt is lying on bed General Appearance: Altered, but cooperative, mild distress HEENT: Atraumatic, Mucous membranes moist/pink Respiratory: Clear to auscultation, Normal air movement, No added sounds Cardiovascular: Regular rate, Normal S1, Normal S2, No murmurs Abdominal: Active bowel sounds, Soft, no distention, no tenderness Extremities: No edema, Normal pulses, but thickened black skin on the dorsum of right lower extremity Skin: No Significant rash, except past surgical scars Neuro: Normal speech, sensorimotor deficits none Nurse was there as label printing machinist during examination Labs/Xrays Labs Test 06/19/25 16:32 06/19/25 13:09 Range/Units Troponin I High Sensitivity 870 *H </=54 ng/L White Blood Count 9.6 4.4-10.8 10^3/uL Red Blood Count 5.88 4.5-5.90 10^6/uL Hemoglobin 17.5 13.5-17.5 g/dL Hematocrit 51.5 41.0-53.0 % Mean Corpuscular Volume 87.5 80.0-100.0 fL Mean Corpuscular Hemoglobin 29.7 28.0-32.0 pg Mean Corpuscular Hemoglobin Concent 33.9 32.0-36.0 g/dL Red Cell Distribution Width 14.2 11.8-14.3 % Platelet Count 191 140-450 10^3/uL Mean Platelet Volume 9.3 6.9-10.8 fL Neutrophils (%) (Auto) 90.8 H 37.0-80.0 % Lymphocytes (%) (Auto) 4.9 L 10.0-50.0 % Monocytes (%) (Auto) 3.9 0.0-12.0 % Eosinophils (%) (Auto) 0.0 0.0-7.0 % Basophils (%) (Auto) 0.4 0.0-2.0 % Neutrophils # (Auto) 8.8 H 1.6-8.6 10 ^3/uL Lymphocytes # (Auto) 0.5 0.4-5.4 10 ^3/uL Monocytes # (Auto) 0.4 0-1.3 10 ^3/uL Eosinophils # (Auto) 0 0-0.8 10 ^3/uL Basophils # (Auto) 0 0-0.2 10 ^3/uL Nucleated Red Blood Cells 0.1 % Sodium Level 145 136-145 mmol/L Potassium Level 4.3 3.5-5.1 mmol/L Chloride Level 104 98-107 mmol/L Carbon Dioxide Level 25 20-31 mmol/L Anion Gap 16 H 5-15 Blood Urea Nitrogen 21 9-23 mg/dL Creatinine 1.22 0.700-1.30 mg/dL Glomerular Filtration Rate Calc 58 >90 mL/min BUN/Creatinine Ratio 17.2 10.0-20.0 Serum Glucose 206 H 74-106 mg/dL Calcium Level 9.1 8.7-10.4 mg/dL SEPSIS Sepsis Screen Date sepsis recognized/suspect: Jun 19, 2025 Time Sepsis recognized/suspect: 1154 Recent Procedure: No On Antibiotic Therapy: No Respiratory Rate >20: Yes Heart Rate >90: Yes Temp<36 C (96.8 F) or >38.3 C: No SBP <90 or MAP <65 mmHG: No New Acute Mental Status Change: Yes Is the patient on CPAP, BIPAP,: No Physician Orders Electrocardigram (06/19/25 12:47) Head Without Contrast (06/19/25 12:50) Chest Portable (06/19/25 12:50) Sodium Chloride 0.9% (06/19/25 13:00) Urinalysis (06/19/25 13:26) Pantoprazole 40mg/50ml Ns Ae (Protonix) (06/19/25 17:00) Sodium Chl 0.9% (Ns... W/Labetalol Injec (06/19/25 18:15) Admit (06/19/25 18:35) Allergies (06/19/25 18:35) Code Status (06/19/25 18:35) Sodium Chloride Lock (Saline Lock Ns) (06/19/25 22:00) Oxygen Per Hour (06/19/25 18:35) Ondansetron Hcl (Zofran) (06/19/25 18:45) Complete Blood Count (06/20/25 04:00) Comprehensive Metabolic Panel (06/20/25 04:00) Npo (Nothing By Mouth) Diet (06/20/25 Breakfast) Condition: Fair (06/19/25 18:35) Acetaminophen Tablet (Tylenol Tablet) (06/19/25 18:45) Morphine Sulfate Injection (06/19/25 18:45) Sequential Compression Device (06/19/25 ) Nitroglycerin Sublingual (Ntrostat Subli (06/19/25 18:45) Morphine Sulfate Injection (06/19/25 18:45) Oxygen By Nasal Cannula (06/19/25 18:35) Stat Ekg For Chest Pain (06/19/25 18:35) Notify Md Of Changes From Base (06/19/25 18:35) Boxing Trainer For 24 Hours (06/19/25 18:35) Emergency Dysrhythmia Protocol (06/19/25 18:35) Rhythm Strips Once Every Shift (06/19/25 18:35) Comprehensive Metabolic Panel (06/19/25 18:45) Magnesium (06/19/25 18:45) PTPTT (06/19/25 18:45) Thyroid Stimulating Hormone (06/19/25 18:45) B-Type Natriuretic Peptide (06/19/25 18:45) Ammonia (06/19/25 18:45) Hemoglobin A1c (06/19/25 18:45) Lactic Acid W/ Reflex Order (06/19/25 18:45) Blood Culture (06/19/25 18:45) Respiratory Culture W/ Gs (06/19/25 18:45) Urine Bacterial Culture (06/19/25 18:45) Clonidine 0.3mg/24hr 7day Patc (Catapres (06/19/25 18:45) Lorazepam 2mg/Ml Inj (Ativan Inj) (06/19/25 18:45) Albuterol Medneb (Ventolin Medneb) (06/19/25 18:45) Ipratropium Medneb (Atrovent Medneb) (06/19/25 18:45) Glucose Blood (Accu-Chek Comfort Curve T (06/19/25 22:00) Insulin R (Human) (Insulin R) (06/19/25 22:00) Dextrose 50% Syringe (06/19/25 18:45) Cefepime 1gm/50ml (Maxipime 1gm/50ml) (06/19/25 18:45) * Cardiology Consult (06/19/25 18:45) * Gi D[facility] Scrap Drop Crane Operator (06/19/25 18:45) Transfer Orders (06/19/25 18:54) Echo 2d Mode Cardiac Dop (06/19/25 18:54) Doxycycline 100mg/100ml (Vibramycin) (06/19/25 19:30) Vital Signs Date Time Temp Pulse Resp B/P (MAP) Pulse Ox O2 Delivery O2 Flow Rate FiO2 06/19/25 19:00 76 18 190/86 (120) 97 06/19/25 18:44 85 179/92 06/19/25 17:51 86 06/19/25 17:00 67 23 167/79 (108) 97 06/19/25 16:00 54 20 162/70 (100) 97 06/19/25 16:00 52 06/19/25 15:30 57 22 153/71 (98) 98 06/19/25 15:00 64 22 177/83 (114) 97 06/19/25 14:13 84 233/108 06/19/25 14:12 84 233/108 06/19/25 14:00 80 23 233/109 (150) 97 06/19/25 13:00 72 22 208/105 (139) 97 06/19/25 12:49 108 06/19/25 12:44 110 254/129 06/19/25 12:30 110 29 96 Nasal Cannula* 2 28 06/19/25 12:30 110 29 254/129 (170) 96 06/19/25 12:08 108 06/19/25 11:55 99.6 108 22 242/108 96 99.6 Laboratory Tests Test 06/19/25 13:09 White Blood Count 9.6 10^3/uL (4.4-10.8) Medications Medications Dose Ordered Sig/Lucy Route Start Time Stop Time Status Last Admin Dose Admin Labetalol HCl 10 mg ONCE ONCE IV 06/19/25 12:45 06/19/25 12:46 DC 06/19/25 12:44 10 MG Labetalol HCl 250 mg/Sodium Chloride 250 ml @ 60 mls/hr Q4H10M ONCE IV 06/19/25 13:00 06/19/25 17:09 DC 06/19/25 14:13 60 MLS/HR Labetalol HCl 250 mg/Sodium Chloride 250 ml @ 60 mls/hr Q4H10M ONCE IV 06/19/25 18:15 06/19/25 22:24 06/19/25 18:44 60 MLS/HR Ondansetron HCl 4 mg ONCE ONCE IV 06/19/25 13:00 06/19/25 13:01 DC 06/19/25 13:32 4 MG Pantoprazole Sodium 50 ml @ 10 mls/hr Q5H ONCE IV 06/19/25 17:00 06/19/25 21:59 06/19/25 17:17 10 MLS/HR Prochlorperazine Edisylate 10 mg ONCE ONCE IV 06/19/25 17:00 06/19/25 17:01 DC 06/19/25 17:17 10 MG Sodium Chloride 1,000 ml @ 150 mls/hr Q6H40M ONCE IV 06/19/25 13:00 06/19/25 19:39 06/19/25 13:32 150 MLS/HR Assessment/Plan Assessment/Plan # R/o Sepsis # Acute metabolic/ toxic encephalopathy likely unspecified # R/o Acute CVA # history of recent CVA - head CT showed no acute changes - hold aspirin - neuro checks - ordered pancultures - started him on cefepime and doxycycline - pending lactic acid, UA - continuously monitor labs # ? aspiration pneumonia - CXR showed congestion - started on cefepime and doxycycline - Cardona cultures #? Acute vs chronic systolic vs diastolic CHF # HTN emergency # NSTEMI type 2 likely due to above # AFib with RVR - ICUstatus - initial EKG showed AFib with RVR - troponins were elevated 757, 778, 870 - consulted cardiology - chest pain protocol - currently on labetalol drip - clonidine 0.3 - continuously monitor blood pressure # hematemesis - Protonix drip - Consulted GI # type 2 DM - continuously monitor - mild sliding scale - HbA1c GI PPX: Protonix VTE ppx: SCDs, no blood thinners because of hematemesis Diet: NPO cause aspiration risk Goals of care addressed according to EMS: DNI Unable to contact with the family Case discussed with Dr. Harris and nurse Plan discussed with: Other (rn) My Orders Orders - ELLIOT ROCHE RESIDENT Procedure Category Date Status Time Admit ADMIT 06/19/25 Transmitted 18:35 Allergies ZACHARIAH 06/19/25 In Process 18:35 Code Status CODE 06/19/25 Transmitted 18:35 Sodium Chloride Lock PHA 06/19/25 In Process (Saline Lock Ns) 22:00 Oxygen Per Hour RT 06/19/25 Transmitted 18:35 Ondansetron Hcl PHA 06/19/25 In Process (Zofran) 18:45 Complete Blood Count LAB 06/20/25 Verified 04:00 Comprehensive LAB 06/20/25 Verified Metabolic Panel 04:00 Npo (Nothing By DIET 06/20/25 Transmitted Mouth) Diet Breakfast Condition: Fair ZACHARIAH 06/19/25 In Process 18:35 Acetaminophen Tablet PHA 06/19/25 In Process (Tylenol Tablet) 18:45 Morphine Sulfate PHA 06/19/25 In Process Injection 18:45 Sequential ZACHARIAH 06/19/25 In Process Compression Device Nitroglycerin [facility] 06/19/25 Logged Sublingual (Ntrostat 18:45 Morphine Sulfate PHA 06/19/25 In Process Injection 18:45 Oxygen By Nasal RT 06/19/25 Transmitted Cannula 18:35 Stat Ekg For Chest ZACHARIAH 06/19/25 In Process Pain 18:35 Notify Of Changes ZACHARIAH 06/19/25 In Process From Base 18:35 Boxing Trainer For [facility] 06/19/25 In Process 24 Hours 18:35 Emergency Dysrhythmia ZACHARIAH 06/19/25 In Process Protocol 18:35 Rhythm Strips Once ZACHARIAH 06/19/25 In Process Every Shift 18:35 Comprehensive LAB 06/19/25 Logged Metabolic Panel 18:45 Magnesium LAB 06/19/25 Logged 18:45 PTPTT LAB 06/19/25 Logged 18:45 Thyroid Stimulating LAB 06/19/25 Logged Hormone 18:45 B-Type Natriuretic LAB 06/19/25 Logged Peptide 18:45 Ammonia LAB 06/19/25 Logged 18:45 Hemoglobin A1c LAB 06/19/25 Logged 18:45 Lactic Acid W/ Reflex LAB 06/19/25 Logged Order 18:45 Blood Culture JAIRO 06/19/25 Logged 18:45 Respiratory Culture JAIRO 06/19/25 Logged W/ Gs 18:45 Urine Bacterial JAIRO 06/19/25 Logged Culture 18:45 Clonidine 0.3mg/24hr PHA 06/19/25 Logged 7day Patc (Catapres 18:45 Lorazepam 2mg/Ml Inj PHA 06/19/25 Logged (Ativan Inj) 18:45 Albuterol Medneb PHA 06/19/25 Logged (Ventolin Medneb) 18:45 Ipratropium Medneb PHA 06/19/25 Logged (Atrovent Medneb) 18:45 Glucose Blood PHA 06/19/25 Logged (Accu-Chek Comfort 22:00 Insulin R (Human) PHA 06/19/25 Logged (Insulin R) 22:00 Dextrose 50% Syringe PHA 06/19/25 Logged 18:45 Cefepime 1gm/50ml PHA 06/19/25 Logged (Maxipime 1gm/50ml) 18:45 * Cardiology Consult CONS 06/19/25 Transmitted 18:45 * Gi Dvh Scrap Drop Crane Operator CONS 06/19/25 Transmitted 18:45 Transfer Orders XFER 06/19/25 Transmitted 18:54 Echo 2d Mode Cardiac US 06/19/25 Logged DOP 18:54 Doxycycline PHA 06/19/25 Logged 100mg/100ml 19:30 ELLIOT ROCHE RESIDENT Jun 19, 2025 19:31
[2025-06-19 19:56] LABS: Albumin 3.7 g/dL (3.2-4.8); Alkaline Phosphatase 51 U/L (46-116); Anion Gap 11 (5-15); BUN/Creatinine Ratio 13.3 (10.0-20.0); Blood Urea Nitrogen 17 mg/dL (9-23); Carbon Dioxide 25 mmol/L (20-31); INR 1.3 (0.9-1.15); Magnesium 1.9 mg/dL (1.6-2.6); Partial Thromboplastin Time 25.4 SEC (24.5-34.5); Potassium 4.5 mmol/L (3.5-5.1); Prothrombin Time 13.4 sec (9.3-11.8); Sodium 144 mmol/L (136-145); Total Protein 6.4 g/dL (5.7-8.2)
[2025-06-19 19:57] LABS: Bilirubin, Total 0.9 mg/dL (0.2-1.0)
[2025-06-19 20:03] LABS: Alanine Aminotransferase < 9 U/L (7-40); Calcium 8.5 mg/dL (8.7-10.4); Chloride 108 mmol/L (98-107); Glucose 225 mg/dL (74-106)
[2025-06-19 20:27] LABS: Lactic Acid w/Reflex 3.6 mmol/L (0.4-2.0)
[2025-06-19] MEDS: cloNIDine 0.3 mg/24hr 7DAY PATCH TD SCH (21:11)
[2025-06-19] MEDS: CEFEPIME 1GM/50ML 50 ML IV SCH (21:35)
[2025-06-19] MEDS: DOXYCYCLINE 100MG/100ML 100 ML IV SCH (21:37)
[2025-06-19] MEDS: SODIUM CHLOR 0.9% PF (SALINE LOCK) 10ML VIAL/SYR IV SCH (22:00)
[2025-06-19] MEDS: ACCU-CHEK COMFORT CURVE STRIP VI SCH (22:30)
[2025-06-19] MEDS: InsuLIN REG 1unit/0.01ml Soln (100units/ml) SC SCH (23:04)
--- NOTE | 2025-06-19 23:31 | DVHINCON2 ---
Date of service: Jun 19, 2025 Referring Physician Jorge Reason for Consultation A-fib, elevated troponin History of Present Illness This is an 84-year-old male with a PMH of Anxiety, CHF, CVA (With right-sided deficits), Depression, DM (Type 2-insulin dependent), High Lipids, HTN, SC (NSTEMI type 2) who was brought in by ambulance from home due to altered mental status. Per EMS, the patient is bed-bound with assisted at home care. Patient's daughter called 911 after the patient became altered after grabbing his chest and vomiting 1 time, while in bed. Patient was noted to have been found hypertensive at 200 systolic on scene. Further history is limited, due to patient's current condition and absence of family/senior energy consultant historians. Chest x- ray showed NAD. EKG: A Fib with RBB at 108. Patient was admitted to the hospital. I am asked to consult on this patient. Family History: Family history: Diabetes mellitus G8 MOTHER G8 FATHER Allergies: Coded Allergies: Carvedilol (Verified Allergy, Unknown, 01/30/23) Ezetimibe (Verified Allergy, Unknown, 01/30/23) Hydralazine (Verified Allergy, Unknown, 01/30/23) Isosorbide Nitrate (Verified Allergy, Unknown, 01/30/23) Lactulose (Verified Allergy, Unknown, 01/30/23) Lisinopril (Verified Allergy, Unknown, 01/30/23) Home Meds Active Scripts Cephalexin Monohydrate (Cephalexin) 500 Mg Cap, 1 CAP PO TID for 3 Days, #9 CAP Prov:DAVID GALVEZ MD 02/05/25 Nifedipine (Nifedipine Er) 90 Mg Tab, 1 TAB PO DAILY, #60 TAB 5 Refills Prov:ARLEN LANGE MD 02/01/23 Reported Medications Citalopram Hydrobromide (Citalopram) 10 Mg Tab, 20 MG PO DAILY, TAB 02/05/25 Dwyrtdmicze-Vrfrnyburoyh-Zkxeu (Trelegy Ellipta 200-62.5-25 Mcg/INH) 1 Aer Aer, 1 PUFF INH DAILY for 30 Days, #60 02/05/25 Donepezil Hydrochloride (Donepezil Hydrochloride) 10 Mg Tab, 1 TAB PO DAILY for 90 Days, #90 02/05/25 Pkgwg-0-Gryy Ethyl Esters (Hzirx-2-Jdat Ethyl Esters) 1 Gm Cap, 1 CAP PO BID for 90 Days, #180 02/05/25 Lorazepam (Lorazepam) 1 Mg Tab, 1 TAB PO DAILYP for 15 Days, #15 02/05/25 Prazosin HCl (Prazosin Hydrochloride) 2 Mg Cap, 1 CAP PO TID for 30 Days, #90 02/05/25 Irbesartan (IRBESARTAN) 300 Mg Tab, 1 TAB PO DAILY for 30 Days, #30 02/05/25 Clonidine Hydrochloride (Clonidine Hcl) 0.3 Mg Tab, 1 TAB PO TID for 90 Days, #270 02/05/25 Tirzepatide (Mounjaro) 15 Mg/0.5 Ml Inj, 15 MG SC QWEEKLY for 28 Days, #2 02/05/25 Cobalamine Combinations (B-12 1000) 1,000 Mcg Sub, 1000 MCG SL, INJ 01/31/23 Nutritional Supplements ([place] Oil) 1,000 Mg Cap, 1000 MG PO, CAP 01/31/23 Insulin Glargine (Basaglar Kwikpen) 100 Unit/Ml Inj, 13 UNIT SC 01/31/23 Insulin Lispro (Human) (Humalog) 100 Mg/Ml Inj, 0 SC TIDWM, INJ 4 UNITS SC BS 180-220 9 UNITS SC BS ABOVE 251 07/22/15 Aspirin (Aspir-81) 81 Mg Tab, 1 TAB PO DAILY, #30 TAB 5 Refills 07/22/15 Current Medications Current Medications Medications (Trade) Dose Ordered Sig/Lucy Route PRN Reason Start Time Stop Time Status Last Admin Sodium Chloride (Saline Lock Ns) 10 ml Q8HR IV 06/19/25 22:00 Ondansetron HCl (Zofran) 4 mg Q4HP PRN IV NAUSEA / VOMITING 06/19/25 18:45 Acetaminophen (Tylenol Tablet) 650 mg Q6HP PRN PO PAIN SCALE 1-3 OR TEMP>100.4 06/19/25 18:45 Morphine Sulfate 2 mg Q4HPRN PRN IV SEVERE PAIN (7-10 PAIN SCALE) 06/19/25 18:45 Nitroglycerin (Ntrostat Sublingual) 0.4 mg Q5MINP PRN SL FOR CHEST PAIN 06/19/25 18:45 Morphine Sulfate 2 mg Q30M PRN IV FOR CHEST PAIN 06/19/25 18:45 Clonidine HCl (Emikxisg-Pxr-7 7DAY Patch) 0.3 mg Q7D TD 06/19/25 18:45 06/19/25 21:11 Lorazepam (Ativan Inj) 0.5 mg Q6HP PRN IV ANXIETY 06/19/25 18:45 Albuterol (Ventolin Medneb) 2.5 mg Q6HPRN PRN NEB SHORTNESS OF BREATH 06/19/25 18:45 Ipratropium [place] (Atrovent Medneb) 0.5 mg Q4HPRN PRN NEB SHORTNESS OF BREATH 06/19/25 18:45 Diagnostic Test (Pha) (Accu-Chek Comfort Curve T) 1 strip ACHS 06/19/25 22:00 06/19/25 22:30 Insulin Human Regular (InsuLIN R) ACHS SC 06/19/25 22:00 Dextrose 50 ml UD PRN IV Blood Sugar LESS THAN 60 06/19/25 18:45 Cefepime HCl 50 ml @ 12.5 mls/hr Q12HR IV 06/19/25 18:45 06/19/25 21:35 Doxycycline Hyclate 100 ml @ 50 mls/hr Q12H IV 06/19/25 19:30 06/19/25 21:37 Review of Systems All Other Systems: Reviewed and Negative (Comprehensive review of systems are n egative unless otherwise stated in HPI) Vital Signs Vital Signs Date Time Temp Pulse Resp B/P (MAP) Pulse Ox O2 Delivery O2 Flow Rate FiO2 06/19/25 21:30 60 21 134/61 (85) 97 06/19/25 19:30 97.7 97.7 06/19/25 19:00 2.0 06/19/25 12:30 Nasal Cannula* 28 Physical Exam GENERAL: Altered. EYES: PERRL, EOMI. Anicteric. HENT: Moist mucous membranes. LUNGS: Clear to auscultation bilaterally. CARDIOVASCULAR: Regular rate and rhythm. ABDOMEN: Soft, nontender and nondistended. EXTREMITIES: BLE weakness. SKIN: Warm, dry. Labs/Diagnostic Data Labs Test 06/19/25 22:29 06/19/25 21:32 06/19/25 19:22 06/19/25 16:32 Range/Units POC Glucose 240 H 70-106 mg/dl Lactic Acid Level 2.5 *H 0.4-2.0 mmol/L Prothrombin Time 13.4 H 9.3-11.8 sec Prothrombin Time INR 1.30 H 0.9-1.15 Activated Partial Thromboplast Time 25.4 24.5-34.5 SEC Sodium Level 144 136-145 mmol/L Potassium Level 4.5 3.5-5.1 mmol/L Chloride Level 108 H 98-107 mmol/L Carbon Dioxide Level 25 20-31 mmol/L Anion Gap 11 5-15 Blood Urea Nitrogen 17 9-23 mg/dL Creatinine 1.28 0.700-1.30 mg/dL Glomerular Filtration Rate Calc 55 >90 mL/min BUN/Creatinine Ratio 13.3 10.0-20.0 Serum Glucose 225 H 74-106 mg/dL Hemoglobin A1c 5.8 H <5.7 % A1C Calcium Level 8.5 L 8.7-10.4 mg/dL Magnesium Level 1.9 1.6-2.6 mg/dL Total Bilirubin 0.9 0.2-1.0 mg/dL Aspartate Amino Transferase (AST) 33 13-40 U/L Alanine Aminotransferase (ALT) < 9 7-40 U/L Alkaline Phosphatase 51 46-116 U/L Ammonia < 10 L 11-32 umol/L B-Type Natriuretic Peptide 2332.39 0-100 pg/mL Total Protein 6.4 5.7-8.2 g/dL Albumin 3.7 3.2-4.8 g/dL Thyroid Stimulating Hormone (TSH) 0.21 L 0.55-4.78 uIU/mL Troponin I High Sensitivity 870 *H </=54 ng/L Test 06/19/25 13:09 Range/Units White Blood Count 9.6 4.4-10.8 10^3/uL Red Blood Count 5.88 4.5-5.90 10^6/uL Hemoglobin 17.5 13.5-17.5 g/dL Hematocrit 51.5 41.0-53.0 % Mean Corpuscular Volume 87.5 80.0-100.0 fL Mean Corpuscular Hemoglobin 29.7 28.0-32.0 pg Mean Corpuscular Hemoglobin Concent 33.9 32.0-36.0 g/dL Red Cell Distribution Width 14.2 11.8-14.3 % Platelet Count 191 140-450 10^3/uL Mean Platelet Volume 9.3 6.9-10.8 fL Neutrophils (%) (Auto) 90.8 H 37.0-80.0 % Lymphocytes (%) (Auto) 4.9 L 10.0-50.0 % Monocytes (%) (Auto) 3.9 0.0-12.0 % Eosinophils (%) (Auto) 0.0 0.0-7.0 % Basophils (%) (Auto) 0.4 0.0-2.0 % Neutrophils # (Auto) 8.8 H 1.6-8.6 10 ^3/uL Lymphocytes # (Auto) 0.5 0.4-5.4 10 ^3/uL Monocytes # (Auto) 0.4 0-1.3 10 ^3/uL Eosinophils # (Auto) 0 0-0.8 10 ^3/uL Basophils # (Auto) 0 0-0.2 10 ^3/uL Nucleated Red Blood Cells 0.1 % Assessment Acute metabolic encephalopathy. History of recent CVA. CHF. HTN emergency. NSTEMI type 2 likely due to above. A Fib with RVR. Hematemesis. Type 2 DM. Plan/Recommendation I agree with your ongoing assessment and care of plan. Echocardiogram. IV antibiotics as ordered. Clonidine. Morphine for pain management. Nitro SL. Additional plan as per the hospital course. A total of 45 minutes was spent reviewing the patient record, examining the patient, making a diagnostic and therapeutic plan, discussing this plan with medical personnel, following up on diagnostic studies and following the patient for clinical stability excluding any and all procedures. At least 50% of this time was spent in direct, [id number] contact. Plan discussed with: Other SYDNI DOUGLASS MD Jun 19, 2025 23:03
[2025-06-20] VITALS (8 sets, daily range): BP systolic 156–161; BP diastolic 62–85; PULSE 66–82; RESP 14–18; TEMP 97.7–98.8; O2SAT 95–100
[2025-06-20] MEDS: LABETALOL HCL 20 MG/4 ML VL IV PRN (01:00)
[2025-06-20 03:44] LABS: Hematocrit 44.5 % (41.0-53.0); Hemoglobin 15.4 g/dL (13.5-17.5); Mean Corpuscular Hemoglobin 30.5 pg (28.0-32.0); Mean Corpuscular Volume 87.9 fL (80.0-100.0); Nucleated Red Blood Cells % 0.2 %
[2025-06-20 03:56] LABS: Albumin 3.5 g/dL (3.2-4.8); Anion Gap 7 (5-15); BUN/Creatinine Ratio 16.5 (10.0-20.0); Bilirubin, Total 0.6 mg/dL (0.2-1.0); Blood Urea Nitrogen 22 mg/dL (9-23); Carbon Dioxide 27 mmol/L (20-31); Potassium 4.4 mmol/L (3.5-5.1); Total Protein 6.0 g/dL (5.7-8.2)
[2025-06-20 04:08] LABS: Chloride 111 mmol/L (98-107); Glucose 195 mg/dL (74-106); Sodium 145 mmol/L (136-145)
[2025-06-20 04:09] LABS: Alanine Aminotransferase < 9 U/L (7-40); Alkaline Phosphatase 44 U/L (46-116); Calcium 8.2 mg/dL (8.7-10.4)
--- NOTE | 2025-06-20 11:15 | DVHPN2 ---
Objective Vitals Vital Signs Date Time Temp Pulse Resp B/P (MAP) Pulse Ox O2 Delivery O2 Flow Rate FiO2 06/20/25 10:00 72 14 150/65 (93) 100 06/20/25 08:00 98.2 98.2 06/20/25 07:30 Nasal Cannula* 2 28 Intake/Output Intake and Output 06/20/25 07:00 Intake Total 170.0 ml Balance 170.0 ml Intake IV Total 170.0 ml Medications Current Medications Medications Dose Ordered Sig/Lucy Route Start Time Stop Time Status Last Admin Dose Admin Sodium Chloride 10 ml Q8HR IV 06/19/25 22:00 06/20/25 06:12 10 ML Ondansetron HCl 4 mg Q4HP PRN IV 06/19/25 18:45 Acetaminophen 650 mg Q6HP PRN PO 06/19/25 18:45 Morphine Sulfate 2 mg Q4HPRN PRN IV 06/19/25 18:45 Nitroglycerin 0.4 mg Q5MINP PRN SL 06/19/25 18:45 Morphine Sulfate 2 mg Q30M PRN IV 06/19/25 18:45 Clonidine HCl 0.3 mg Q7D TD 06/19/25 18:45 06/19/25 21:11 0.3 MG Lorazepam 0.5 mg Q6HP PRN IV 06/19/25 18:45 Albuterol 2.5 mg Q6HPRN PRN NEB 06/19/25 18:45 Ipratropium [place] 0.5 mg Q4HPRN PRN NEB 06/19/25 18:45 Diagnostic Test (Pha) 1 strip ACHS 06/19/25 22:00 06/20/25 07:06 1 STRIP Insulin Human Regular ACHS SC 06/19/25 22:00 06/20/25 07:13 2 UNITS Dextrose 50 ml UD PRN IV 06/19/25 18:45 Cefepime HCl 50 ml @ 12.5 mls/hr Q12HR IV 06/19/25 18:45 06/20/25 09:58 12.5 MLS/HR Labetalol HCl 10 mg Q4HPRN PRN IV 06/20/25 00:15 06/20/25 01:00 10 MG Aspirin 81 mg DAILY PO 06/21/25 10:00 UNV Patient Own Medication 20 mg DAILY PO 06/21/25 10:00 UNV Patient Own Medication 1 tab DAILY PO 06/21/25 10:00 UNV Nifedipine 90 mg DAILY PO 06/21/25 10:00 UNV Prazosin HCl 2 mg Q8HR PO 06/20/25 14:00 UNV Laboratory Results Laboratory Tests 06/20/25 03:28 Chemistry Test 06/19/25 13:09 06/19/25 19:22 06/20/25 03:28 Calcium Level 9.1 mg/dL (8.7-10.4) 8.5 mg/dL (8.7-10.4) L 8.2 mg/dL (8.7-10.4) L Albumin 3.7 g/dL (3.2-4.8) 3.5 g/dL (3.2-4.8) Magnesium Level 1.9 mg/dL (1.6-2.6) Total Protein 6.4 g/dL (5.7-8.2) 6.0 g/dL (5.7-8.2) Coagulation Test 06/19/25 19:22 Prothrombin Time 13.4 sec (9.3-11.8) H Prothrombin Time INR 1.30 (0.9-1.15) H Activated Partial Thromboplast Time 25.4 SEC (24.5-34.5) Cardiac Markers Test 06/19/25 19:22 B-Type Natriuretic Peptide 2332.39 pg/mL (0-100) LFT Test 06/19/25 19:22 06/20/25 03:28 Alanine Aminotransferase (ALT) < 9 U/L (7-40) < 9 U/L (7-40) Alkaline Phosphatase 51 U/L (46-116) 44 U/L (46-116) L Aspartate Amino Transferase (AST) 33 U/L (13-40) 32 U/L (13-40) Total Bilirubin 0.9 mg/dL (0.2-1.0) 0.6 mg/dL (0.2-1.0) HgA1c, TSH Test 06/19/25 19:22 Hemoglobin A1c 5.8 % A1C (<5.7) H Thyroid Stimulating Hormone (TSH) 0.21 uIU/mL (0.55-4.78) L Microbiology Microbiology Date/Time Source Procedure Growth Status 06/19/25 19:00 Blood Blood Culture - Preliminary Resulted Assessment/Plan My Orders Orders - ANGELINA MCDONALD MD Procedure Category Date Status Time Transfer Orders XFER 06/20/25 Transmitted 10:17 ANGELINA MCDONALD MD Jun 20, 2025 11:15
--- NOTE | 2025-06-20 11:36 | DVHINCON2 ---
Date of service: Jun 20, [address] [place] Reason for Consultation Possible GI bleed History of Present Illness This 84-year-old male with a history of CHF congestive heart failure CVA depression diabetes presented to the ER in altered mental status. Unable to get any detailed history from the patient according to the apparently she had some hematemesis hematochezia she had some nausea vomiting and chest pain. Patient was apparently possibly had some hematemesis also and hence the reason for GI consult. Patient has been seen by [facility] because atrial fibrillation with the gnosticist of branch block. No alternatives not able to talk to the daughter now unable to get and did not have anymore for hematemesis or other problems as per the nurse's in the ER Unable to contact the daughter now because of she is not picking up the phone left message Past Medical History Hypertension diabetes CHF CVA atrial fibrillation Past Surgical History None Family History: Family history: Diabetes mellitus G8 MOTHER G8 FATHER Family History Not obtained Social History Not obtained Allergies: Coded Allergies: Carvedilol (Verified Allergy, Unknown, 01/30/23) Ezetimibe (Verified Allergy, Unknown, 01/30/23) Hydralazine (Verified Allergy, Unknown, 01/30/23) Isosorbide Nitrate (Verified Allergy, Unknown, 01/30/23) Lactulose (Verified Allergy, Unknown, 01/30/23) Lisinopril (Verified Allergy, Unknown, 01/30/23) Home Meds Active Scripts Cephalexin Monohydrate (Cephalexin) 500 Mg Cap, 1 CAP PO TID for 3 Days, #9 CAP Prov:DAVID GALVEZ MD 02/05/25 Nifedipine (Nifedipine Er) 90 Mg Tab, 1 TAB PO DAILY, #60 TAB 5 Refills Prov:ARLEN LANGE MD 02/01/23 Reported Medications Citalopram Hydrobromide (Citalopram) 10 Mg Tab, 20 MG PO DAILY, TAB 02/05/25 Bztrwmihczq-Eehunjddpaam-Hwnui (Trelegy Ellipta 200-62.5-25 Mcg/INH) 1 Aer Aer, 1 PUFF INH DAILY for 30 Days, #60 02/05/25 Donepezil Hydrochloride (Donepezil Hydrochloride) 10 Mg Tab, 1 TAB PO DAILY for 90 Days, #90 02/05/25 Clesb-0-Ohkl Ethyl Esters (Ilsfz-3-Twbi Ethyl Esters) 1 Gm Cap, 1 CAP PO BID for 90 Days, #180 02/05/25 Lorazepam (Lorazepam) 1 Mg Tab, 1 TAB PO DAILYP for 15 Days, #15 02/05/25 Prazosin HCl (Prazosin Hydrochloride) 2 Mg Cap, 1 CAP PO TID for 30 Days, #90 02/05/25 Irbesartan (IRBESARTAN) 300 Mg Tab, 1 TAB PO DAILY for 30 Days, #30 02/05/25 Clonidine Hydrochloride (Clonidine Hcl) 0.3 Mg Tab, 1 TAB PO TID for 90 Days, #270 02/05/25 Tirzepatide (Mounjaro) 15 Mg/0.5 Ml Inj, 15 MG SC QWEEKLY for 28 Days, #2 02/05/25 Cobalamine Combinations (B-12 1000) 1,000 Mcg Sub, 1000 MCG SL, INJ 01/31/23 Nutritional Supplements ([place] Oil) 1,000 Mg Cap, 1000 MG PO, CAP 01/31/23 Insulin Glargine (Basaglar Kwikpen) 100 Unit/Ml Inj, 13 UNIT SC 01/31/23 Insulin Lispro (Human) (Humalog) 100 Mg/Ml Inj, 0 SC TIDWM, INJ 4 UNITS SC BS 180-220 9 UNITS SC BS ABOVE 251 07/22/15 Aspirin (Aspir-81) 81 Mg Tab, 1 TAB PO DAILY, #30 TAB 5 Refills 07/22/15 Current Medications Current Medications Medications (Trade) Dose Ordered Sig/Lucy Route PRN Reason Start Time Stop Time Status Last Admin Sodium Chloride (Saline Lock Ns) 10 ml Q8HR IV 06/19/25 22:00 06/20/25 06:12 Ondansetron HCl (Zofran) 4 mg Q4HP PRN IV NAUSEA / VOMITING 06/19/25 18:45 Acetaminophen (Tylenol Tablet) 650 mg Q6HP PRN PO PAIN SCALE 1-3 OR TEMP>100.4 06/19/25 18:45 Morphine Sulfate 2 mg Q4HPRN PRN IV SEVERE PAIN (7-10 PAIN SCALE) 06/19/25 18:45 Nitroglycerin (Ntrostat Sublingual) 0.4 mg Q5MINP PRN SL FOR CHEST PAIN 06/19/25 18:45 Morphine Sulfate 2 mg Q30M PRN IV FOR CHEST PAIN 06/19/25 18:45 Clonidine HCl (Xeixtnzq-Ezt-3 7DAY Patch) 0.3 mg Q7D TD 06/19/25 18:45 06/19/25 21:11 Lorazepam (Ativan Inj) 0.5 mg Q6HP PRN IV ANXIETY 06/19/25 18:45 Albuterol (Ventolin Medneb) 2.5 mg Q6HPRN PRN NEB SHORTNESS OF BREATH 06/19/25 18:45 Ipratropium [place] (Atrovent Medneb) 0.5 mg Q4HPRN PRN NEB SHORTNESS OF BREATH 06/19/25 18:45 Diagnostic Test (Pha) (Accu-Chek Comfort Curve T) 1 strip ACHS 06/19/25 22:00 06/20/25 11:28 Insulin Human Regular (InsuLIN R) ACHS SC 06/19/25 22:00 06/20/25 07:13 Dextrose 50 ml UD PRN IV Blood Sugar LESS THAN 60 06/19/25 18:45 Cefepime HCl 50 ml @ 12.5 mls/hr Q12HR IV 06/19/25 18:45 06/20/25 09:58 Doxycycline Hyclate 100 ml @ 50 mls/hr Q12H IV 06/19/25 19:30 06/20/25 10:51 DC 06/20/25 07:36 Labetalol HCl (Labetalol HCl) 10 mg Q4HPRN PRN IV SBP>150 06/20/25 00:15 06/20/25 01:00 Aspirin (Ecotrin Enteric Coated Tablet) 81 mg DAILY PO 06/21/25 10:00 UNV Patient Own Medication 20 mg DAILY PO 06/21/25 10:00 UNV Patient Own Medication 1 tab DAILY PO 06/21/25 10:00 UNV Nifedipine (Procardia Xl (Time-Release)) 90 mg DAILY PO 06/21/25 10:00 UNV Prazosin HCl (Minipres Capsule) 2 mg Q8HR PO 06/20/25 14:00 UNV Review of Systems Could not obtain Vital Signs Vital Signs Date Time Temp Pulse Resp B/P (MAP) Pulse Ox O2 Delivery O2 Flow Rate FiO2 06/20/25 10:00 72 14 150/65 (93) 100 06/20/25 08:00 98.2 98.2 06/20/25 07:30 Nasal Cannula* 2 28 Physical Exam Moderately built and nourished male in not responding reason vitals are otherwise okay blood pressure was slightly high HEENT examination no pallor no Lungs are clear Cardiovascular irregular rhythm Abdomen Soft nontender no masses Labs/Diagnostic Data Labs Test 06/20/25 03:28 06/19/25 22:29 06/19/25 21:32 06/19/25 19:22 Range/Units White Blood Count 9.9 4.4-10.8 10^3/uL Red Blood Count 5.07 4.5-5.90 10^6/uL Hemoglobin 15.4 13.5-17.5 g/dL Hematocrit 44.5 # 41.0-53.0 % Mean Corpuscular Volume 87.9 80.0-100.0 fL Mean Corpuscular Hemoglobin 30.5 28.0-32.0 pg Mean Corpuscular Hemoglobin Concent 34.6 32.0-36.0 g/dL Red Cell Distribution Width 14.3 11.8-14.3 % Platelet Count 127 L 140-450 10^3/uL Mean Platelet Volume 9.4 6.9-10.8 fL Neutrophils (%) (Auto) 82.9 H 37.0-80.0 % Lymphocytes (%) (Auto) 7.9 L 10.0-50.0 % Monocytes (%) (Auto) 9.0 0.0-12.0 % Eosinophils (%) (Auto) 0.0 0.0-7.0 % Basophils (%) (Auto) 0.2 0.0-2.0 % Neutrophils # (Auto) 8.2 1.6-8.6 10 ^3/uL Lymphocytes # (Auto) 0.8 0.4-5.4 10 ^3/uL Monocytes # (Auto) 0.9 0-1.3 10 ^3/uL Eosinophils # (Auto) 0 0-0.8 10 ^3/uL Basophils # (Auto) 0 0-0.2 10 ^3/uL Nucleated Red Blood Cells 0.2 % Sodium Level 145 136-145 mmol/L Potassium Level 4.4 3.5-5.1 mmol/L Chloride Level 111 H 98-107 mmol/L Carbon Dioxide Level 27 20-31 mmol/L Anion Gap 7 5-15 Blood Urea Nitrogen 22 9-23 mg/dL Creatinine 1.33 H 0.700-1.30 mg/dL Glomerular Filtration Rate Calc 53 >90 mL/min BUN/Creatinine Ratio 16.5 10.0-20.0 Serum Glucose 195 H 74-106 mg/dL Calcium Level 8.2 L 8.7-10.4 mg/dL Total Bilirubin 0.6 0.2-1.0 mg/dL Aspartate Amino Transferase (AST) 32 13-40 U/L Alanine Aminotransferase (ALT) < 9 7-40 U/L Alkaline Phosphatase 44 L 46-116 U/L Total Protein 6.0 5.7-8.2 g/dL Albumin 3.5 3.2-4.8 g/dL POC Glucose 240 H 70-106 mg/dl Lactic Acid Level 2.5 *H 0.4-2.0 mmol/L Prothrombin Time 13.4 H 9.3-11.8 sec Prothrombin Time INR 1.30 H 0.9-1.15 Activated Partial Thromboplast Time 25.4 24.5-34.5 SEC Hemoglobin A1c 5.8 H <5.7 % A1C Magnesium Level 1.9 1.6-2.6 mg/dL Ammonia < 10 L 11-32 umol/L B-Type Natriuretic Peptide 2332.39 0-100 pg/mL Thyroid Stimulating Hormone (TSH) 0.21 L 0.55-4.78 uIU/mL Test 06/19/25 16:32 Range/Units Troponin I High Sensitivity 870 *H </=54 ng/L Microbiology Date/Time Source Procedure Growth Status 06/19/25 19:00 Blood Blood Culture - Preliminary Resulted Assessment Eight 4-year-old with a history of congestive heart failure CVA anxiety hyper tension diabetes atrial fibrillation with right bundle-branch block has been seen by Cardiology patient is unresponsive vitals are stable no evidence of any gross bleeding no even though apparently had some vomiting and possible hematemesis Examination is unremarkable except for unresponsiveness labs are unremarkable hemoglobin is stable Patient has hypertension CVA and diabetes possible diabetic gastroparesis atrial fibrillation no gross GI bleeding at this time Plan/Recommendation Monitor the hemoglobin If anticoagulants and needed inpatient gross Bleeding may need endoscopic evaluation for the time being we will also treat with Protonix Thank you Dr. Cantrell Plan discussed with: Other MAGALIE CANTRELL MD Jun 20, 2025 11:36
[2025-06-20] MEDS: SODIUM CHLORIDE 0.9% 1,000 ML IV ONE (12:19)
[2025-06-20] MEDS: PRAZOSIN HCL 1 MG CAP PO SCH (14:18)
--- NOTE | 2025-06-20 17:18 | DVHPN2 ---
Progress Note - Dictate Date Seen: Jun 20, 2025 Medical Necessity Reason Pt with a Central, PICC or Fol: No Subjective Asked to evaluate the patient given he [facility] to [facility] with the [facility]. Alert and awake oriented to self. Not agitated. Comfortable. vital signs Vital Sign Date Time Temp Pulse Resp B/P (MAP) Pulse Ox O2 Delivery O2 Flow Rate FiO2 06/20/25 15:30 65 11 145/61 (89) 100 06/20/25 08:00 98.2 98.2 06/20/25 07:30 Nasal Cannula* 2 28 Total Intake and Output 06/19/25 06/19/25 06/20/25 15:00 23:00 07:00 Intake Total 32.5 ml 137.5 ml Balance 32.5 ml 137.5 ml medications Current Medications Medications Dose Ordered Sig/Lucy Route Start Time Stop Time Status Last Admin Dose Admin Sodium Chloride 10 ml Q8HR IV 06/19/25 22:00 06/20/25 14:00 10 ML Ondansetron HCl 4 mg Q4HP PRN IV 06/19/25 18:45 Acetaminophen 650 mg Q6HP PRN PO 06/19/25 18:45 Morphine Sulfate 2 mg Q4HPRN PRN IV 06/19/25 18:45 Nitroglycerin 0.4 mg Q5MINP PRN SL 06/19/25 18:45 Morphine Sulfate 2 mg Q30M PRN IV 06/19/25 18:45 Clonidine HCl 0.3 mg Q7D TD 06/19/25 18:45 06/19/25 21:11 0.3 MG Lorazepam 0.5 mg Q6HP PRN IV 06/19/25 18:45 Albuterol 2.5 mg Q6HPRN PRN NEB 06/19/25 18:45 Ipratropium [place] 0.5 mg Q4HPRN PRN NEB 06/19/25 18:45 Diagnostic Test (Pha) 1 strip ACHS 06/19/25 22:00 06/20/25 11:28 1 STRIP Insulin Human Regular ACHS SC 06/19/25 22:00 06/20/25 07:13 2 UNITS Dextrose 50 ml UD PRN IV 06/19/25 18:45 Cefepime HCl 50 ml @ 12.5 mls/hr Q12HR IV 06/19/25 18:45 06/20/25 09:58 12.5 MLS/HR Labetalol HCl 10 mg Q4HPRN PRN IV 06/20/25 00:15 06/20/25 01:00 10 MG Aspirin 81 mg DAILY PO 06/21/25 10:00 Citalopram Hydrobromide 20 mg DAILY PO 06/21/25 10:00 Donepezil HCl 10 mg HS PO 06/20/25 22:00 Nifedipine 90 mg DAILY PO 06/21/25 10:00 Prazosin HCl 2 mg Q8HR PO 06/20/25 14:00 06/20/25 14:18 2 MG objective HEENT neck supple no JVD. Heart regular rate and rhythm S1-S2. Lungs fair air movement without rales wheezes poor inspiratory effort. Abdomen soft nontender positive bowel sounds. Extremities no edema positive pulses. laboratory and microbiology Laboratory Tests 06/20/25 03:28 Test 06/20/25 03:28 Range/Units Serum Glucose 195 H 74-106 mg/dL Assessment/Plan I will resume his home blood pressure medications given high blood pressure. Clear liquid diet. Physical therapy evaluation. Continue rest of supportive care and treatment as he is on. Gentle IV hydration x1 L. further clinical management per clinical course and recommendations from the consultants. Problems(with codes): (1) Metabolic encephalopathy (2) Hypertension Dietary Evaluation Review Comments: 1) Initiate MVI @ 1 tb qd 2) Encourage optimal PO intake 3) Advance to 60g CCHO cardiac diet when medically feasible 4) Follow-up with cardiology, pulmonology, and neurology 5) Continue to monitor I&O, labs, and skin integrity Expected Outcomes/Goals: 1) appetite and labs to improve 2) diet to advance 3) GI symptoms to resolve 4) f/u in 3-5 days Plan discussed with: ARLEN Goodson MD Jun 20, 2025 17:18
--- NOTE | 2025-06-20 20:08 | DVHSR ---
APPROVED REPORT EXAM: Two-dimensional and M-mode echocardiogram with Doppler and color Doppler. Blood Pressure: 153/66 mmHg INDICATION CHF Severity RISK FACTORS Height: 5' 2", Weight: 165 DIMENSIONS LVDd4.7 (3.8-5.7cm)LA (2D)4.8 (1.9-4.0cm)Aortic Root3.5 (2.0-3.7cm) LVDs3.5 (2.5-4.0cm)LA (MM) (1.9-4.0cm)Aortic Cusp Exc1.9 (1.5-2.0cm) EF (%) 50.0 (55-70%)Rt. Atrium4.9 (1.9-4.0cm)Asc. Aorta cm IVSd1.5 (0.7-1.1cm)RV (D) (1.8-2.4cm) PWd1.3 (0.7-1.1cm) Mitral Valve MitralMitral Stenosis E wave1.00m/sMV Mean GR.mmHg A wave0.80m/sMV Peak GR.mmHg E/A ratio1.32D MVAcm2 Aortic Valve Aortic ValveAortic Stenosis V10.70m/Ana Mean GR.4mmHg V21.30m/Ana Peak GR.7mmHg LVOT Diameter2.2 (1.8-2.4cm)Doppler AVA2.05cm2 AI P 1/2 Lwks650.67ms Pulmonic Valve V21.20m/s Tricuspid Valve TR Velocity3.20m/s [id number] Conclusion MODERATE DEGREE LVH AND MODERATE DEGREE LV DIASTOLIC DYSFUNCTION LV EF IS 65% MODERATELY DILATED LA,RV AND RA MODERATE DEGREE PULMONARY HYPERTENSION RVSP IS 50 MM OF HG AND IS MODERATELY HIGH NORMAL VALVES NO EFFUSION
[2025-06-20] MEDS: DONEPEZIL HYDROCHLORIDE 5 MG TAB PO SCH (22:56)
--- NOTE | 2025-06-20 22:57 | DVHPN2 ---
Progress Note - Dictate Date Seen: Jun 20, 2025 Medical Necessity Reason Pt with a Central, PICC or Fol: No Subjective Patient was seen and evaluated in follow up. Patient's daughter/caregiver Roslyn is present at bedside. Patient is resting in bed. CLINICAL INTERVIEWER 1.33, CA 8.2. Telemetry reviewed. vital signs Vital Sign Date Time Temp Pulse Resp B/P (MAP) Pulse Ox O2 Delivery O2 Flow Rate FiO2 06/20/25 12:58 155/70 06/20/25 12:36 63 06/20/25 10:00 14 100 06/20/25 08:00 98.2 98.2 06/20/25 07:30 Nasal Cannula* 2 28 Total Intake and Output 06/19/25 06/19/25 06/20/25 15:00 23:00 07:00 Intake Total 32.5 ml 137.5 ml Balance 32.5 ml 137.5 ml medications Current Medications Medications Dose Ordered Sig/Lucy Route Start Time Stop Time Status Last Admin Dose Admin Sodium Chloride 10 ml Q8HR IV 06/19/25 22:00 06/20/25 06:12 10 ML Ondansetron HCl 4 mg Q4HP PRN IV 06/19/25 18:45 Acetaminophen 650 mg Q6HP PRN PO 06/19/25 18:45 Morphine Sulfate 2 mg Q4HPRN PRN IV 06/19/25 18:45 Nitroglycerin 0.4 mg Q5MINP PRN SL 06/19/25 18:45 Morphine Sulfate 2 mg Q30M PRN IV 06/19/25 18:45 Clonidine HCl 0.3 mg Q7D TD 06/19/25 18:45 06/19/25 21:11 0.3 MG Lorazepam 0.5 mg Q6HP PRN IV 06/19/25 18:45 Albuterol 2.5 mg Q6HPRN PRN NEB 06/19/25 18:45 Ipratropium [place] 0.5 mg Q4HPRN PRN NEB 06/19/25 18:45 Diagnostic Test (Pha) 1 strip ACHS 06/19/25 22:00 06/20/25 11:28 1 STRIP Insulin Human Regular ACHS SC 06/19/25 22:00 06/20/25 07:13 2 UNITS Dextrose 50 ml UD PRN IV 06/19/25 18:45 Cefepime HCl 50 ml @ 12.5 mls/hr Q12HR IV 06/19/25 18:45 06/20/25 09:58 12.5 MLS/HR Labetalol HCl 10 mg Q4HPRN PRN IV 06/20/25 00:15 06/20/25 01:00 10 MG Aspirin 81 mg DAILY PO 06/21/25 10:00 Citalopram Hydrobromide 20 mg DAILY PO 06/21/25 10:00 Donepezil HCl 10 mg HS PO 06/20/25 22:00 Nifedipine 90 mg DAILY PO 06/21/25 10:00 Prazosin HCl 2 mg Q8HR PO 06/20/25 14:00 objective GENERAL: Altered. EYES: PERRL, EOMI. Anicteric. HENT: Moist mucous membranes. LUNGS: Clear to auscultation bilaterally. CARDIOVASCULAR: Regular rate and rhythm. ABDOMEN: Soft, nontender and nondistended. EXTREMITIES: BLE weakness. SKIN: Warm, dry. laboratory and microbiology Laboratory Tests 06/20/25 03:28 Test 06/20/25 03:28 Range/Units Serum Glucose 195 H 74-106 mg/dL Problem List Acute metabolic encephalopathy. History of recent CVA. CHF. HTN emergency. NSTEMI type 2 likely due to above. A Fib with RVR. Hematemesis. Type 2 DM. Assessment/Plan Continued all current supportive medical care. Nitro SL. Aspirin. Nifedipine. Echocardiogram. IV antibiotics as ordered. Nebulized breathing treatments. Morphine for pain management. Additional plan as per the hospital course. Dietary Evaluation Review Comments: 1) Initiate MVI @ 1 tb qd 2) Encourage optimal PO intake 3) Advance to 60g [facility] cardiac diet when medically feasible 4) Follow-up with cardiology, pulmonology, and neurology 5) Continue to monitor I&O, labs, and skin integrity Expected Outcomes/Goals: 1) appetite and labs to improve 2) diet to advance 3) GI symptoms to resolve 4) f/u in 3-5 days Plan discussed with: Patient SYDNI DOUGLASS MD Jun 20, 2025 13:29
[2025-06-21] VITALS (12 sets, daily range): BP systolic 114–167; BP diastolic 58–94; PULSE 76–157; RESP 16–20; TEMP 97.3–98.2; O2SAT 94–100
[2025-06-21 06:29] LABS: Anion Gap 8 (5-15); BUN/Creatinine Ratio 22.3 (10.0-20.0); Carbon Dioxide 29 mmol/L (20-31); Potassium 3.9 mmol/L (3.5-5.1)
[2025-06-21 06:30] LABS: Bilirubin, Total 0.4 mg/dL (0.2-1.0)
[2025-06-21 06:32] LABS: Alanine Aminotransferase < 9 U/L (7-40); Albumin 3.1 g/dL (3.2-4.8); Alkaline Phosphatase 40 U/L (46-116); Blood Urea Nitrogen 25 mg/dL (9-23); Calcium 8.2 mg/dL (8.7-10.4); Chloride 112 mmol/L (98-107); Glucose 131 mg/dL (74-106); Sodium 149 mmol/L (136-145); Total Protein 5.6 g/dL (5.7-8.2)
[2025-06-21 06:44] LABS: Hematocrit 40.1 % (41.0-53.0); Hemoglobin 14.0 g/dL (13.5-17.5); Mean Corpuscular Hemoglobin 30.5 pg (28.0-32.0); Mean Corpuscular Volume 87.3 fL (80.0-100.0); Nucleated Red Blood Cells % 0.0 %
--- NOTE | 2025-06-21 07:18 | ECG ---
[facility] Test Date: 2025-06-19 Test Time: 12:08:27 Pat Name: PAMELA SELBY Department: Room: 0217T B Gender: M Payroll Consultant: ALEXY : 1940 Requested By: LAY BENJAMIN Order Number: [id number] Reading MD: Hal Haynes Measurements Intervals [place] Rate: 108 P: 0 MA: 0 QRS: -90 QRSD: 140 T: 70 QT: 423 QTc: 567 Interpretive Statements Atrial fibrillation RBBB and LAFB Baseline wander in lead(s) V6 Electronically Signed On 06-21-2025 14:25:04 PDT by Hal Haynes Please click the below link to view image of tracing.
[2025-06-21] MEDS: AMIODARONE BOLUS KIT 100 ML IV ONE (08:36)
[2025-06-21] MEDS: AMIODARONE 360mg/200mL PREMIX 200 ML IV ONE (08:43)
[2025-06-21] MEDS ORDERED: ENOXAPARIN SOD 100 MG/1 ML SYRINGE SC SCH (10:00)
[2025-06-21] MEDS: ASPirin-EC 81 mg tab PO SCH (10:05)
[2025-06-21] MEDS: CITALOPRAM HYDROBR 20 MG TAB PO SCH (10:06)
[2025-06-21] MEDS: ENOXAPARIN SOD 80 MG/0.8ML SYRINGE SC SCH (10:20)
[2025-06-21] MEDS: METOPROLOL TARTRATE 1MG/1ML-5ML VIAL IV ONE (11:06)
[2025-06-21] MEDS ORDERED: VANCOMYCIN PER PHARMACY 0 MG IV SCH (11:30)
--- NOTE | 2025-06-21 14:04 | ECG ---
[facility] Test Date: 2025-06-21 Test Time: 08:16:43 Pat Name: PAMELA SELBY Department: Respiratoy Room: 0217T B Gender: M Veterans Service Officer: STELLA : 1940 Requested By: SYDNI DOUGLASS Order Number: [id number] Reading MD: Hal Haynes Measurements Intervals [place] Rate: 158 P: 0 OR: 0 QRS: 259 QRSD: 147 T: 101 QT: 327 QTc: 530 Interpretive Statements Extreme tachycardia with wide complex, no further rhythm analysis attempted Electronically Signed On 06-21-2025 14:30:42 PDT by Hal Haynes Please click the below link to view image of tracing.
--- NOTE | 2025-06-21 14:04 | ECG ---
[facility] Test Date: 2025-06-21 Test Time: 07:59:43 Pat Name: PAMELA SELBY Department: Respiratoy Room: 0217T B Gender: M Noc Technician: NEFTALI BORGES LVN : 1940 Requested By: SYDNI DOUGLASS Order Number: [id number] Reading MD: Hal Haynes Measurements Intervals [place] Rate: 100 P: 12 MI: 189 QRS: -82 QRSD: 138 T: 123 QT: 392 QTc: 506 Interpretive Statements Sinus tachycardia RBBB and LAFB Abnormal T, consider ischemia, lateral leads Electronically Signed On 06-21-2025 14:30:36 PDT by Hal Haynes Please click the below link to view image of tracing.
[2025-06-21] MEDS: VANCOMYCIN 1.5GM/250ML 250 ML IV ONE (14:30)
[2025-06-21] MEDS: AMIODARONE 360mg/200mL PREMIX 200 ML IV SCH (15:30)
--- NOTE | 2025-06-21 15:44 | DVHPN2 ---
Progress Note - Dictate Date Seen: Jun 21, 2025 Medical Necessity Reason Pt with a Central, PICC or Fol: No Subjective Patient is alert and awake oriented x2. His sister who is caregiver is at bedside. Patient apparently had a stroke in the past ever since he is mostly bed-bound. She cares for him at home. His blood cultures positive for Gram- positive cocci for which he is on antibiotics vital signs Vital Sign Date Time Temp Pulse Resp B/P (MAP) Pulse Ox O2 Delivery O2 Flow Rate FiO2 06/21/25 11:06 141 115/80 06/21/25 08:37 20 97 06/21/25 08:00 Nasal Cannula* 2 28 06/21/25 05:00 97.7 97.7 Total Intake and Output 06/20/25 06/20/25 06/21/25 15:00 23:00 07:00 Intake Total 150 ml Balance 150 ml medications Current Medications Medications Dose Ordered Sig/Lucy Route Start Time Stop Time Status Last Admin Dose Admin Sodium Chloride 10 ml Q8HR IV 06/19/25 22:00 06/21/25 06:00 10 ML Ondansetron HCl 4 mg Q4HP PRN IV 06/19/25 18:45 Acetaminophen 650 mg Q6HP PRN PO 06/19/25 18:45 Morphine Sulfate 2 mg Q4HPRN PRN IV 06/19/25 18:45 Nitroglycerin 0.4 mg Q5MINP PRN SL 06/19/25 18:45 Morphine Sulfate 2 mg Q30M PRN IV 06/19/25 18:45 Clonidine HCl 0.3 mg Q7D TD 06/19/25 18:45 06/19/25 21:11 0.3 MG Lorazepam 0.5 mg Q6HP PRN IV 06/19/25 18:45 Albuterol 2.5 mg Q6HPRN PRN NEB 06/19/25 18:45 Cancel Ipratropium [place] 0.5 mg Q4HPRN PRN NEB 06/19/25 18:45 Cancel Diagnostic Test (Pha) 1 strip ACHS 06/19/25 22:00 06/21/25 11:30 1 STRIP Insulin Human Regular ACHS SC 06/19/25 22:00 06/21/25 12:01 2 UNITS Dextrose 50 ml UD PRN IV 06/19/25 18:45 Cefepime HCl 50 ml @ 12.5 mls/hr Q12HR IV 06/19/25 18:45 06/21/25 10:03 12.5 MLS/HR Labetalol HCl 10 mg Q4HPRN PRN IV 06/20/25 00:15 06/21/25 03:20 10 MG Aspirin 81 mg DAILY PO 06/21/25 10:00 06/21/25 10:14 81 MG Citalopram Hydrobromide 20 mg DAILY PO 06/21/25 10:00 06/21/25 10:06 20 MG Donepezil HCl 10 mg HS PO 06/20/25 22:00 06/20/25 22:56 10 MG Nifedipine 90 mg DAILY PO 06/21/25 10:00 06/21/25 10:05 90 MG Prazosin HCl 2 mg Q8HR PO 06/20/25 14:00 06/21/25 06:01 2 MG Enoxaparin Sodium 70 mg BID SC 06/21/25 10:00 06/21/25 10:20 70 MG Vancomycin HCl 0 ml @ 0 mls/hr UD IV 06/21/25 11:30 Amiodarone HCL/ Dextrose 200 ml @ 16.66 mls/ hr Q12H IV 06/21/25 15:30 objective Comfortable in bed without distress. Sister at bedside. Heart regular rate and rhythm S1-S2. Lungs fair air movement poor inspiratory effort no wheezing. Abdomen soft nontender positive bowel sounds. Extremities chronic venous stasis noted in the lower extremities with the positive pulses laboratory and microbiology Laboratory Tests 06/21/25 05:32 Test 06/21/25 05:32 Range/Units Serum Glucose 131 H 74-106 mg/dL Assessment/Plan Advance his diet to pureed diet today. Continue his blood pressure medications. Apparently his heart rate went high overnight therefore he is evaluated by police commissioner hard on amiodarone drip. Patient does not appear to be in AFib at present. Continue Lovenox and amiodarone. Continue current antibiotics and rest of medications. Further clinical management per clinical course. Discussed with the patient and nurse at bedside regarding care plan. Problems(with codes): (1) Gram-positive bacteremia (2) Hypertensive urgency (3) Atrial fibrillation (4) Demand ischemia (5) Metabolic encephalopathy Dietary Evaluation Review Comments: 1) Initiate MVI @ 1 tb qd 2) Encourage optimal PO intake 3) Advance to 60g CCHO cardiac diet when medically feasible 4) Follow-up with cardiology, pulmonology, and neurology 5) Continue to monitor I&O, labs, and skin integrity Expected Outcomes/Goals: 1) appetite and labs to improve 2) diet to advance 3) GI symptoms to resolve 4) f/u in 3-5 days Plan discussed with: Other ARLEN LANGE MD Jun 21, 2025 15:44
--- NOTE | 2025-06-21 20:42 | DVHPN2 ---
Progress Note - Dictate Date Seen: Jun 21, 2025 Medical Necessity Reason Pt with a Central, PICC or Fol: No Subjective Patient is doing okay without any gross GI bleeding patient has probably has some bacterial infection with stroke possibly vital signs Vital Sign Date Time Temp Pulse Resp B/P (MAP) Pulse Ox O2 Delivery O2 Flow Rate FiO2 06/21/25 17:00 98.1 80 16 134/60 (84) 100 98.1 06/21/25 10:00 Nasal Cannula* 2 28 Total Intake and Output 06/20/25 06/20/25 06/21/25 15:00 23:00 07:00 Intake Total 150 ml Balance 150 ml medications Current Medications Medications Dose Ordered Sig/Lucy Route Start Time Stop Time Status Last Admin Dose Admin Sodium Chloride 10 ml Q8HR IV 06/19/25 22:00 06/21/25 14:00 10 ML Ondansetron HCl 4 mg Q4HP PRN IV 06/19/25 18:45 Acetaminophen 650 mg Q6HP PRN PO 06/19/25 18:45 Morphine Sulfate 2 mg Q4HPRN PRN IV 06/19/25 18:45 Nitroglycerin 0.4 mg Q5MINP PRN SL 06/19/25 18:45 Morphine Sulfate 2 mg Q30M PRN IV 06/19/25 18:45 Clonidine HCl 0.3 mg Q7D TD 06/19/25 18:45 06/19/25 21:11 0.3 MG Lorazepam 0.5 mg Q6HP PRN IV 06/19/25 18:45 Albuterol 2.5 mg Q6HPRN PRN NEB 06/19/25 18:45 Cancel Ipratropium [place] 0.5 mg Q4HPRN PRN NEB 06/19/25 18:45 Cancel Diagnostic Test (Pha) 1 strip ACHS 06/19/25 22:00 06/21/25 17:00 1 STRIP Insulin Human Regular ACHS SC 06/19/25 22:00 06/21/25 17:00 3 UNITS Dextrose 50 ml UD PRN IV 06/19/25 18:45 Cefepime HCl 50 ml @ 12.5 mls/hr Q12HR IV 06/19/25 18:45 06/21/25 10:03 12.5 MLS/HR Aspirin 81 mg DAILY PO 06/21/25 10:00 9/8/25 10:14 81 MG Citalopram Hydrobromide 20 mg DAILY PO 06/21/25 10:00 06/21/25 10:06 20 MG Donepezil HCl 10 mg HS PO 06/20/25 22:00 06/20/25 22:56 10 MG Nifedipine 90 mg DAILY PO 06/21/25 10:00 06/21/25 10:05 90 MG Enoxaparin Sodium 70 mg BID SC 06/21/25 10:00 06/21/25 10:20 70 MG Vancomycin HCl 0 ml @ 0 mls/hr UD IV 06/21/25 11:30 Amiodarone HCL/ Dextrose 200 ml @ 16.66 mls/ hr Q12H IV 06/21/25 15:30 06/21/25 15:30 16.66 MLS/HR Prazosin HCl 1 mg Q8HR PO 06/21/25 22:00 objective Tolerating feeds well no gross bleeding Abdomen is soft nontender no masses laboratory and microbiology Laboratory Tests 06/21/25 05:32 Test 06/21/25 05:32 Range/Units Serum Glucose 131 H 74-106 mg/dL Assessment/Plan Eight 4-year-old with a history of congestive heart failure CVA anxiety hypertension diabetes atrial fibrillation with right bundle-branch block has been seen by Cardiology patient is unresponsive vitals are stable no evidence of any gross bleeding no even though apparently had some vomiting and possible hematemesis hemoglobin is stable Patient has hypertension CVA and diabetes possible diabetic gastroparesis atrial fibrillation no gross GI bleeding at this time We will increase the diet and follow the hemoglobin closely Thank you Dr. Cantrell Dietary Evaluation Review Comments: 1) Initiate MVI @ 1 tb qd 2) Encourage optimal PO intake 3) Advance to 60g [facility] cardiac diet when medically feasible 4) Follow-up with cardiology, pulmonology, and neurology 5) Continue to monitor I&O, labs, and skin integrity Expected Outcomes/Goals: 1) appetite and labs to improve 2) diet to advance 3) GI symptoms to resolve 4) f/u in 3-5 days Plan discussed with: MAGALIE Roman MD Jun 21, 2025 20:42
[2025-06-21] MEDS: PRAZOSIN HCL 1 MG CAP PO SCH (21:15)
--- NOTE | 2025-06-21 23:07 | DVHPN2 ---
Progress Note - Dictate Date Seen: Jun 21, 2025 Medical Necessity Reason Pt with a Central, PICC or Fol: No Subjective Patient was seen and evaluated in follow up. Patient us on 2 LPM NC. Blood cultures positive for Gram-positive cocci for which he is on antibiotics. CBC is unremarkable. Telemetry reviewed. vital signs Vital Sign Date Time Temp Pulse Resp B/P (MAP) Pulse Ox O2 Delivery O2 Flow Rate FiO2 06/21/25 21:15 167/58 06/21/25 21:00 98.2 81 18 94 98.2 06/21/25 10:00 Nasal Cannula* 2 28 Total Intake and Output 06/20/25 06/20/25 06/21/25 15:00 23:00 07:00 Intake Total 150 ml Balance 150 ml medications Current Medications Medications Dose Ordered Sig/Lucy Route Start Time Stop Time Status Last Admin Dose Admin Sodium Chloride 10 ml Q8HR IV 06/19/25 22:00 06/21/25 21:28 10 ML Ondansetron HCl 4 mg Q4HP PRN IV 06/19/25 18:45 Acetaminophen 650 mg Q6HP PRN PO 06/19/25 18:45 Morphine Sulfate 2 mg Q4HPRN PRN IV 06/19/25 18:45 Nitroglycerin 0.4 mg Q5MINP PRN SL 06/19/25 18:45 Morphine Sulfate 2 mg Q30M PRN IV 06/19/25 18:45 Clonidine HCl 0.3 mg Q7D TD 06/19/25 18:45 06/19/25 21:11 0.3 MG Lorazepam 0.5 mg Q6HP PRN IV 06/19/25 18:45 Albuterol 2.5 mg Q6HPRN PRN NEB 06/19/25 18:45 Cancel Ipratropium [place] 0.5 mg Q4HPRN PRN NEB 06/19/25 18:45 Cancel Diagnostic Test (Pha) 1 strip ACHS 06/19/25 22:00 06/21/25 21:16 1 STRIP Insulin Human Regular ACHS SC 06/19/25 22:00 06/21/25 21:25 2 UNITS Dextrose 50 ml UD PRN IV 06/19/25 18:45 Cefepime HCl 50 ml @ 12.5 mls/hr Q12HR IV 06/19/25 18:45 06/21/25 21:19 12.5 MLS/HR Aspirin 81 mg DAILY PO 06/21/25 10:00 06/21/25 10:14 81 MG Citalopram Hydrobromide 20 mg DAILY PO 06/21/25 10:00 06/21/25 10:06 20 MG Donepezil HCl 10 mg HS PO 06/20/25 22:00 06/21/25 21:19 10 MG Nifedipine 90 mg DAILY PO 06/21/25 10:00 06/21/25 10:05 90 MG Enoxaparin Sodium 70 mg BID SC 06/21/25 10:00 06/21/25 21:30 70 MG Vancomycin HCl 0 ml @ 0 mls/hr UD IV 06/21/25 11:30 Amiodarone HCL/ Dextrose 200 ml @ 16.66 mls/ hr Q12H IV 06/21/25 15:30 06/21/25 15:30 16.66 MLS/HR Prazosin HCl 1 mg Q8HR PO 06/21/25 22:00 06/21/25 21:15 1 MG objective GENERAL: Altered. EYES: PERRL, EOMI. Anicteric. HENT: Moist mucous membranes. LUNGS: Clear to auscultation bilaterally. CARDIOVASCULAR: Regular rate and rhythm. ABDOMEN: Soft, nontender and nondistended. EXTREMITIES: BLE weakness. SKIN: Warm, dry. laboratory and microbiology Laboratory Tests 06/21/25 05:32 Test 06/21/25 05:32 Range/Units Serum Glucose 131 H 74-106 mg/dL Problem List Acute metabolic encephalopathy. History of recent CVA. CHF. HTN emergency. NSTEMI type 2 likely due to above. A Fib with RVR. Hematemesis. Type 2 DM. Assessment/Plan Continued all current supportive medical care. Echocardiogram. IV Amiodarone. Aspirin. IV antibiotics as ordered. Clonidine, Nifedipine. DVT prophylactics. Morphine for pain management. Additional plan as per the hospital course. Dietary Evaluation Review Comments: 1) Initiate MVI @ 1 tb qd 2) Encourage optimal PO intake 3) Advance to 60g [facility] cardiac diet when medically feasible 4) Follow-up with cardiology, pulmonology, and neurology 5) Continue to monitor I&O, labs, and skin integrity Expected Outcomes/Goals: 1) appetite and labs to improve 2) diet to advance 3) GI symptoms to resolve 4) f/u in 3-5 days Plan discussed with: Patient, Other SYDNI DOUGLASS MD Jun 21, 2025 23:07
[2025-06-22] VITALS (9 sets, daily range): BP systolic 127–172; BP diastolic 64–73; PULSE 80–143; RESP 18–20; TEMP 98–98.8; O2SAT 90–99
[2025-06-22 07:02] LABS: Hematocrit 41.9 % (41.0-53.0); Hemoglobin 14.4 g/dL (13.5-17.5); Mean Corpuscular Hemoglobin 29.9 pg (28.0-32.0); Mean Corpuscular Volume 86.9 fL (80.0-100.0); Nucleated Red Blood Cells % 0.1 %
[2025-06-22 07:27] LABS: Albumin 3.3 g/dL (3.2-4.8); Anion Gap 10 (5-15); BUN/Creatinine Ratio 15.8 (10.0-20.0); Bilirubin, Total 0.4 mg/dL (0.2-1.0); Blood Urea Nitrogen 16 mg/dL (9-23); Carbon Dioxide 26 mmol/L (20-31); Chloride 107 mmol/L (98-107); Glucose 103 mg/dL (74-106); Magnesium 2.2 mg/dL (1.6-2.6); Potassium 3.6 mmol/L (3.5-5.1); Sodium 143 mmol/L (136-145); Total Protein 5.8 g/dL (5.7-8.2)
[2025-06-22 07:29] LABS: Alanine Aminotransferase < 9 U/L (7-40); Alkaline Phosphatase 46 U/L (46-116); Calcium 8.3 mg/dL (8.7-10.4)
[2025-06-22] MEDS: METOPROLOL TARTRATE 1MG/1ML-5ML VIAL IV ONE (08:17)
--- NOTE | 2025-06-22 12:29 | DVHPN2 ---
Progress Note - Dictate Date Seen: Jun 22, 2025 Medical Necessity Reason Pt with a Central, PICC or Fol: No Subjective He is more alert and awake. He is talking today. Heart rate is controlled except few episodes of tachycardia. vital signs Vital Sign Date Time Temp Pulse Resp B/P (MAP) Pulse Ox O2 Delivery O2 Flow Rate FiO2 06/22/25 11:06 148/70 06/22/25 10:00 96 Nasal Cannula 2.0 06/22/25 10:00 28 06/22/25 09:00 98.5 136 20 98.5 Total Intake and Output 06/21/25 06/21/25 06/22/25 15:00 23:00 07:00 Intake Total 1500 ml 250 ml Balance 1500 ml 250 ml medications Current Medications Medications Dose Ordered Sig/Lucy Route Start Time Stop Time Status Last Admin Dose Admin Sodium Chloride 10 ml Q8HR IV 06/19/25 22:00 06/22/25 07:05 10 ML Ondansetron HCl 4 mg Q4HP PRN IV 06/19/25 18:45 Acetaminophen 650 mg Q6HP PRN PO 06/19/25 18:45 Nitroglycerin 0.4 mg Q5MINP PRN SL 06/19/25 18:45 Clonidine HCl 0.3 mg Q7D TD 06/19/25 18:45 06/19/25 21:11 0.3 MG Lorazepam 0.5 mg Q6HP PRN IV 06/19/25 18:45 Albuterol 2.5 mg Q6HPRN PRN NEB 06/19/25 18:45 Cancel Ipratropium [place] 0.5 mg Q4HPRN PRN NEB 06/19/25 18:45 Cancel Diagnostic Test (Pha) 1 strip ACHS 06/19/25 22:00 06/22/25 06:26 1 STRIP Insulin Human Regular ACHS SC 06/19/25 22:00 06/21/25 21:25 2 UNITS Dextrose 50 ml UD PRN IV 06/19/25 18:45 Aspirin 81 mg DAILY PO 06/21/25 10:00 06/21/25 10:14 81 MG Citalopram Hydrobromide 20 mg DAILY PO 06/21/25 10:00 06/22/25 11:04 20 MG Donepezil HCl 10 mg HS PO 06/20/25 22:00 06/21/25 21:19 10 MG Nifedipine 90 mg DAILY PO 06/21/25 10:00 06/22/25 11:06 90 MG Vancomycin HCl 0 ml @ 0 mls/hr UD IV 06/21/25 11:30 Amiodarone HCL/ Dextrose 200 ml @ 16.66 mls/ hr Q12H IV 06/21/25 15:30 06/22/25 03:14 16.66 MLS/HR Prazosin HCl 1 mg Q8HR PO 06/21/25 22:00 06/22/25 07:04 1 MG Vancomycin HCl 100 ml @ 100 mls/hr Q12H IV 06/22/25 11:00 Atenolol 25 mg QPM PO 06/22/25 18:00 UNV objective Comfortable in bed without distress. Nurse at bedside Heart regular rate and rhythm S1-S2. Lungs fair air movement poor inspiratory effort no wheezing. Abdomen soft nontender positive bowel sounds. Extremities chronic venous stasis noted in the lower extremities with the positive pulses laboratory and microbiology Laboratory Tests 06/22/25 05:31 Test 06/22/25 05:31 Range/Units Serum Glucose 103 74-106 mg/dL Assessment/Plan Given his more alert pureed diet today. He has repeat blood cultures today growth. Continue current antibiotics for another 24 hours. Monitor overnight. If he remains stable consider discharge home tomorrow. Meantime we will transition IV amiodarone to oral amiodarone and I will add a oral atenolol for heart rate control and blood pressure control. Problems(with codes): (1) Hyperlipidemia (2) Metabolic encephalopathy (3) Hypertension (4) Gram-positive bacteremia (5) Atrial fibrillation Dietary Evaluation Review Comments: 1) Initiate MVI @ 1 tb qd 2) Encourage optimal PO intake 3) Advance to 60g [facility] cardiac diet when medically feasible 4) Follow-up with cardiology, pulmonology, and neurology 5) Continue to monitor I&O, labs, and skin integrity Expected Outcomes/Goals: 1) appetite and labs to improve 2) diet to advance 3) GI symptoms to resolve 4) f/u in 3-5 days Plan discussed with: Patient ARLEN LANGE MD Jun 22, 2025 12:29
[2025-06-22] MEDS: VANCOMYCIN 750mg/100mL IV SCH (13:07)
[2025-06-22] MEDS ORDERED: VANCOMYCIN 750mg/100mL IV SCH (14:30)
--- NOTE | 2025-06-22 17:36 | DVHPN2 ---
Progress Note Date Seen: Jun 22, 2025 Resident Creating Document: CECILIA LOU RESIDENT Medical Necessity Reason Pt with a Central, PICC or Fol: No Subjective Review of Systems Patient seen and examined at bedside with the help of a percussion tuner Denies any nausea or vomiting Last bowel movement was today, normal in consistency without any bleeding Patient notes he only had 1 episode of vomiting 2 days ago Objective vital signs Vital Sign Date Time Temp Pulse Resp B/P (MAP) Pulse Ox O2 Delivery O2 Flow Rate FiO2 06/22/25 17:00 98.7 80 19 133/73 (93) 99 98.7 06/22/25 10:00 Nasal Cannula 2.0 06/22/25 10:00 28 Total Intake and Output 06/21/25 06/21/25 06/22/25 15:00 23:00 07:00 Intake Total 1500 ml 250 ml Balance 1500 ml 250 ml medications Current Medications Medications Dose Ordered Sig/Lucy Route Start Time Stop Time Status Last Admin Dose Admin Sodium Chloride 10 ml Q8HR IV 06/19/25 22:00 06/22/25 07:05 10 ML Ondansetron HCl 4 mg Q4HP PRN IV 06/19/25 18:45 Acetaminophen 650 mg Q6HP PRN PO 06/19/25 18:45 Nitroglycerin 0.4 mg Q5MINP PRN SL 06/19/25 18:45 Clonidine HCl 0.3 mg Q7D TD 06/19/25 18:45 06/19/25 21:11 0.3 MG Lorazepam 0.5 mg Q6HP PRN IV 06/19/25 18:45 Albuterol 2.5 mg Q6HPRN PRN NEB 06/19/25 18:45 Cancel Ipratropium [place] 0.5 mg Q4HPRN PRN NEB 06/19/25 18:45 Cancel Diagnostic Test (Pha) 1 strip ACHS 06/19/25 22:00 06/22/25 11:30 1 STRIP Insulin Human Regular ACHS SC 06/19/25 22:00 06/22/25 13:33 4 UNITS Dextrose 50 ml UD PRN IV 06/19/25 18:45 Aspirin 81 mg DAILY PO 06/21/25 10:00 06/21/25 10:14 81 MG Citalopram Hydrobromide 20 mg DAILY PO 06/21/25 10:00 06/22/25 11:04 20 MG Donepezil HCl 10 mg HS PO 06/20/25 22:00 06/21/25 21:19 10 MG Nifedipine 90 mg DAILY PO 06/21/25 10:00 06/22/25 11:06 90 MG Vancomycin HCl 0 ml @ 0 mls/hr UD IV 06/21/25 11:30 Amiodarone HCL/ Dextrose 200 ml @ 16.66 mls/ hr Q12H IV 06/21/25 15:30 06/22/25 03:14 16.66 MLS/HR Prazosin HCl 1 mg Q8HR PO 06/21/25 22:00 06/22/25 15:47 1 MG Atenolol 25 mg QPM PO 06/22/25 18:00 Future Hold Apixaban 2.5 mg BID PO 06/22/25 22:00 Vancomycin HCl 100 ml @ 100 mls/hr Q12H IV 06/23/25 01:00 Examination General Appearance: Cooperative. Well developed. Well nourished. NAD Pulmonary/Respiratory: Chest non-tender. Good bilateral air entry Cardiovascular/Chest: Regular rate and rhythm. No murmurs. No JVD. Peripheral Pulses: Decreased pedal pulses bilaterally Abdominal Exam: Normal bowel sounds. Soft. normal abdomen, no visible veins, Nontender. No hepatospenomegaly. No masses Ankle Exam: Negative ankle edema Neuro/Mental Status: A&O x4. Incoherent likely residual from CVA Skin Exam: Stasis dermatitis bilateral lower extremities. Right lower extremity extensive stasis dermatitis with overlying plaques laboratory and microbiology Laboratory Tests 06/22/25 05:31 Test 06/22/25 05:31 Range/Units Serum Glucose 103 74-106 mg/dL Microbiology Date/Time Source Procedure Growth Status 06/21/25 11:50 Blood Blood Culture - Preliminary NO GROWTH AFTER 24 HOURS OF INCUBATION. Resulted Labs and/or images reviewed: Labs reviewed by me, Image(s) reviewed by me Problem List/Assessment/Plan Problem List/Assessment/Plan Acute intractable vomiting Hematemesis History of CVA with residual deficits Possible diabetic gastroparesis Atrial fibrillation Plan: Continue conservative management; tolerating current diet without any further nausea or vomiting We will follow H&H GI team will remain on standby if EGD is needed Thank you so much for the opportunity to consult on your patient. GI team will follow the patient. In case of any questions or concerns please feel free to reach out. Plan discussed with Dr. Vu Plan discussed with: Patient, Other (RN) My Orders My Orders Orders - CECILIA LOU Procedure Category Date Status Time Bilat Low Ext Art US 06/22/25 Logged Duplex 16:24 Dietary Evaluation Review Comments: 1) Initiate MVI @ 1 tb qd 2) Encourage optimal PO intake 3) Advance to 60g [facility]CHO cardiac diet when medically feasible 4) Follow-up with cardiology, pulmonology, and neurology 5) Continue to monitor I&O, labs, and skin integrity Expected Outcomes/Goals: 1) appetite and labs to improve 2) diet to advance 3) GI symptoms to resolve 4) f/u in 3-5 days CECILIA LOU RESIDENT Jun 22, 2025 17:36
[2025-06-22] MEDS ORDERED: ATENOLOL 25 MG TAB PO SCH (18:00)
--- NOTE | 2025-06-22 18:50 | DVH ---
BILATERAL LOWER EXTREMITY ARTERIAL DUPLEX ULTRASOUND STUDY: REASON FOR EXAM: weak pulses TECHNIQUE: The full lengths of the arterial segments were evaluated with color-flow Doppler ultrasoun d. Suspected abnormalities were evaluated with chavez scale ultrasound. Construction Helper spectral Doppler waveforms, with velocity measurements were obtained. Spectral waveforms with velocity measurements w ere obtained 2 to 4 cm central to any areas of significant stenosis. Common femoral, superficial femo ral, popliteal, posterior tibial, anterior tibial, and dorsal pedal arteries were evaluated. FINDINGS: Note that the heart rhythm is irregular which May skew velocity measurements and interpreted degree o f stenosis. Right: There is extensive atherosclerotic plaque throughout the right lower extremity. The common fem oral artery waveform is multiphasic with a brisk upstroke. The superficial femoral and popliteal reji dominique are patent with multiphasic waveforms. There is monophasic flow in the posterior tibial artery. No flow is identified in the anterior tibial or dorsal pedal arteries. Left: There is extensive atherosclerotic plaque throughout the left lower extremity. The common femo ral artery waveform is multiphasic with a brisk upstroke. The superficial femoral and popliteal arter ies are patent with multiphasic waveforms. No flow is identified in the posterior tibial artery. No f low is identified in the anterior tibial or dorsal pedal arteries. IMPRESSION: Severe atherosclerotic disease. No flow is identified in the right anterior tibial or dorsal pedal arteries. No flow is identified below the knee in the left lower extremity. Correlate with clinical history and physical exam to distinguish chronic peripheral arterial disease from acute thromboembolic phenomenon.
--- NOTE | 2025-06-22 22:17 | DVHPN2 ---
Progress Note - Dictate Date Seen: Jun 22, 2025 Medical Necessity Reason Pt with a Central, PICC or Fol: No Subjective Patient was seen and evaluated in follow up. Patient us on 2 LPM NC. Patient more awake and alert today. Patient has a few episodes of tachycardia. Echocardiogram shows an EF of 65%. BLE arterial duplex shows npo flow is identified in the right anterior tibial or dorsal pedal arteries. No flow is identified below the knee in the left lower extremity. Telemetry reviewed. vital signs Vital Sign Date Time Temp Pulse Resp B/P (MAP) Pulse Ox O2 Delivery O2 Flow Rate FiO2 06/22/25 20:49 98.1 81 18 149/64 (92) 97 98.1 06/22/25 10:00 Nasal Cannula 2.0 06/22/25 10:00 28 Total Intake and Output 06/21/25 06/21/25 06/22/25 15:00 23:00 07:00 Intake Total 1500 ml 250 ml Balance 1500 ml 250 ml medications Current Medications Medications Dose Ordered Sig/Lucy Route Start Time Stop Time Status Last Admin Dose Admin Sodium Chloride 10 ml Q8HR IV 06/19/25 22:00 06/22/25 14:00 10 ML Ondansetron HCl 4 mg Q4HP PRN IV 06/19/25 18:45 Acetaminophen 650 mg Q6HP PRN PO 06/19/25 18:45 Nitroglycerin 0.4 mg Q5MINP PRN SL 06/19/25 18:45 Clonidine HCl 0.3 mg Q7D TD 06/19/25 18:45 06/19/25 21:11 0.3 MG Lorazepam 0.5 mg Q6HP PRN IV 06/19/25 18:45 Albuterol 2.5 mg Q6HPRN PRN NEB 06/19/25 18:45 Cancel Ipratropium [place] 0.5 mg Q4HPRN PRN NEB 06/19/25 18:45 Cancel Diagnostic Test (Pha) 1 strip ACHS 06/19/25 22:00 06/22/25 17:00 1 STRIP Insulin Human Regular ACHS SC 06/19/25 22:00 06/22/25 13:33 4 UNITS Dextrose 50 ml UD PRN IV 06/19/25 18:45 Aspirin 81 mg DAILY PO 06/21/25 10:00 06/21/25 10:14 81 MG Citalopram Hydrobromide 20 mg DAILY PO 06/21/25 10:00 06/22/25 11:04 20 MG Donepezil HCl 10 mg HS PO 06/20/25 22:00 06/21/25 21:19 10 MG Nifedipine 90 mg DAILY PO 06/21/25 10:00 06/22/25 11:06 90 MG Vancomycin HCl 0 ml @ 0 mls/hr UD IV 06/21/25 11:30 Amiodarone HCL/ Dextrose 200 ml @ 16.66 mls/ hr Q12H IV 06/21/25 15:30 06/22/25 17:59 16.66 MLS/HR Prazosin HCl 1 mg Q8HR PO 06/21/25 22:00 06/22/25 15:47 1 MG Atenolol 25 mg QPM PO 06/22/25 18:00 Hold Apixaban 2.5 mg BID PO 06/22/25 22:00 Vancomycin HCl 100 ml @ 100 mls/hr Q12H IV 06/23/25 01:00 objective GENERAL: Alert and oriented x 2. No acute distress. EYES: PERRL, EOMI. Anicteric. HENT: Moist mucous membranes. LUNGS: Clear to auscultation bilaterally. CARDIOVASCULAR: Regular rate and rhythm. ABDOMEN: Soft, nontender and nondistended. EXTREMITIES: BLE weakness. SKIN: Warm, dry. laboratory and microbiology Laboratory Tests 06/22/25 05:31 Test 06/22/25 05:31 Range/Units Serum Glucose 103 74-106 mg/dL Problem List Acute metabolic encephalopathy. History of recent CVA. CHF. HTN emergency. NSTEMI type 2 likely due to above. A Fib with RVR. Hematemesis. Type 2 DM. Assessment/Plan Continued all current supportive medical care. IV Amiodarone. Aspirin. IV antibiotics as ordered. Clonidine, Nifedipine. DVT prophylactics. Morphine for pain management. Additional plan as per the hospital course. Dietary Evaluation Review Comments: 1) Initiate MVI @ 1 tb qd 2) Encourage optimal PO intake 3) Advance to 60g [facility] cardiac diet when medically feasible 4) Follow-up with cardiology, pulmonology, and neurology 5) Continue to monitor I&O, labs, and skin integrity Expected Outcomes/Goals: 1) appetite and labs to improve 2) diet to advance 3) GI symptoms to resolve 4) f/u in 3-5 days Plan discussed with: Patient SYDNI DOUGLASS MD Jun 22, 2025 22:17
[2025-06-22] MEDS: APIXABAN 5 MG TAB PO SCH (22:40)
[2025-06-23] VITALS (9 sets, daily range): BP systolic 152–183; BP diastolic 63–80; PULSE 2–92; RESP 16–22; TEMP 75–98.5; O2SAT 96–100
[2025-06-23] MEDS: VANCOMYCIN 750mg/100mL IV SCH (01:28)
--- NOTE | 2025-06-23 11:18 | DVHPN2 ---
Progress Note Date Seen: Jun 23, 2025 Resident Creating Document: CECILIA LOU RESIDENT Medical Necessity Reason Pt with a Central, PICC or Fol: No Subjective Review of Systems Patient seen and examined at bedside Denies any nausea or vomiting As tolerating diet without any complaints Objective vital signs Vital Sign Date Time Temp Pulse Resp B/P (MAP) Pulse Ox O2 Delivery O2 Flow Rate FiO2 06/23/25 10:11 152/67 06/23/25 10:00 96 Nasal Cannula 2.0 06/23/25 10:00 28 06/23/25 09:00 98.4 89 22 98.4 Total Intake and Output 06/22/25 06/22/25 06/23/25 15:00 23:00 07:00 Intake Total 240 ml 500 ml Balance 240 ml 500 ml medications Current Medications Medications Dose Ordered Sig/Lucy Route Start Time Stop Time Status Last Admin Dose Admin Sodium Chloride 10 ml Q8HR IV 06/19/25 22:00 06/23/25 05:27 10 ML Ondansetron HCl 4 mg Q4HP PRN IV 06/19/25 18:45 Acetaminophen 650 mg Q6HP PRN PO 06/19/25 18:45 Nitroglycerin 0.4 mg Q5MINP PRN SL 06/19/25 18:45 Clonidine HCl 0.3 mg Q7D TD 06/19/25 18:45 06/19/25 21:11 0.3 MG Lorazepam 0.5 mg Q6HP PRN IV 06/19/25 18:45 Albuterol 2.5 mg Q6HPRN PRN NEB 06/19/25 18:45 Cancel Ipratropium [place] 0.5 mg Q4HPRN PRN NEB 06/19/25 18:45 Cancel Diagnostic Test (Pha) 1 strip ACHS 06/19/25 22:00 06/23/25 05:28 1 STRIP Insulin Human Regular ACHS SC 06/19/25 22:00 06/23/25 06:38 2 UNITS Dextrose 50 ml UD PRN IV 06/19/25 18:45 Aspirin 81 mg DAILY PO 06/21/25 10:00 06/23/25 10:12 81 MG Citalopram Hydrobromide 20 mg DAILY PO 06/21/25 10:00 06/23/25 10:11 20 MG Donepezil HCl 10 mg HS PO 06/20/25 22:00 06/22/25 22:40 10 MG Nifedipine 90 mg DAILY PO 06/21/25 10:00 06/23/25 10:11 90 MG Vancomycin HCl 0 ml @ 0 mls/hr UD IV 06/21/25 11:30 Amiodarone HCL/ Dextrose 200 ml @ 16.66 mls/ hr Q12H IV 06/21/25 15:30 06/23/25 05:27 16.66 MLS/HR Prazosin HCl 1 mg Q8HR PO 06/21/25 22:00 06/23/25 05:28 1 MG Atenolol 25 mg QPM PO 06/22/25 18:00 Hold Apixaban 2.5 mg BID PO 06/22/25 22:00 06/23/25 10:13 2.5 MG Vancomycin HCl 100 ml @ 100 mls/hr Q12H IV 06/23/25 01:00 06/23/25 01:28 100 MLS/HR Examination General Appearance: Cooperative. Well developed. Well nourished. NAD Pulmonary/Respiratory: Chest non-tender. Good bilateral air entry Cardiovascular/Chest: Regular rate and rhythm. No murmurs. No JVD. Peripheral Pulses: Decreased pedal pulses bilaterally Abdominal Exam: Normal bowel sounds. Soft. normal abdomen, no visible veins, Nontender. No hepatospenomegaly. No masses Ankle Exam: Negative ankle edema Neuro/Mental Status: A&O x4. Incoherent likely residual from CVA Skin Exam: Stasis dermatitis bilateral lower extremities. Right lower extremity extensive stasis dermatitis with overlying plaques laboratory and microbiology Laboratory Tests 06/23/25 05:05 06/22/25 05:31 Test 06/22/25 05:31 Range/Units Serum Glucose 103 74-106 mg/dL Microbiology Date/Time Source Procedure Growth Status 06/21/25 11:50 Blood Blood Culture - Preliminary NO GROWTH AFTER 24 HOURS OF INCUBATION. Resulted Labs and/or images reviewed: Labs reviewed by me, Image(s) reviewed by me Problem List/Assessment/Plan Problem List/Assessment/Plan Acute intractable vomiting Hematemesis History of CVA with residual deficits Possible diabetic gastroparesis Atrial fibrillation Acute on chronic peripheral arterial disease Plan: Consider vascular surgery consultation Outpatient follow up with GI recommended Continue conservative management; tolerating current diet without any further nausea or vomiting We will follow H&H GI team will remain on standby if EGD is needed Thank you so much for the opportunity to consult on your patient. GI team will follow the patient. In case of any questions or concerns please feel free to reach out. Plan discussed with Dr. Vu Plan discussed with: Patient, Other (RN) My Orders My Orders Orders - CECILIA LOU RESIDENT Procedure Category Date Status Time Bilat Low Ext Art US 06/22/25 Resulted Duplex 16:24 Dietary Evaluation Review Comments: 1) Initiate MVI @ 1 tb qd 2) Encourage optimal PO intake 3) Advance to 60g CCHO cardiac diet when medically feasible 4) Follow-up with cardiology, pulmonology, and neurology 5) Continue to monitor I&O, labs, and skin integrity Expected Outcomes/Goals: 1) appetite and labs to improve 2) diet to advance 3) GI symptoms to resolve 4) f/u in 3-5 days CECILIA LOU RESIDENT Jun 23, 2025 11:18
[2025-06-23] MEDS ORDERED: ASPI1TAB20 PO (13:08)
[2025-06-23] MEDS ORDERED: CILO100T3 PO (13:08)
[2025-06-23] MEDS ORDERED: AMOX500T86 PO (13:08)
--- NOTE | 2025-06-23 13:11 | DVHPN2 ---
Progress Note - Dictate Date Seen: Jun 23, 2025 Medical Necessity Reason Pt with a Central, PICC or Fol: No Subjective He is more alert and awake. He is talking today. Family is at bedside. Tolerating diet. Repeat blood cultures negative for any growth. Peripheral arterial duplex shows positive arterial occlusions likely chronic in nature. vital signs Vital Sign Date Time Temp Pulse Resp B/P (MAP) Pulse Ox O2 Delivery O2 Flow Rate FiO2 06/23/25 10:11 152/67 06/23/25 10:00 96 Nasal Cannula 2.0 06/23/25 10:00 28 06/23/25 09:00 98.4 89 22 98.4 Total Intake and Output 06/22/25 06/22/25 06/23/25 15:00 23:00 07:00 Intake Total 240 ml 500 ml Balance 240 ml 500 ml medications Current Medications Medications Dose Ordered Sig/Lucy Route Start Time Stop Time Status Last Admin Dose Admin Sodium Chloride 10 ml Q8HR IV 06/19/25 22:00 06/23/25 05:27 10 ML Ondansetron HCl 4 mg Q4HP PRN IV 06/19/25 18:45 Acetaminophen 650 mg Q6HP PRN PO 06/19/25 18:45 Nitroglycerin 0.4 mg Q5MINP PRN SL 06/19/25 18:45 Clonidine HCl 0.3 mg Q7D TD 06/19/25 18:45 06/19/25 21:11 0.3 MG Lorazepam 0.5 mg Q6HP PRN IV 06/19/25 18:45 Albuterol 2.5 mg Q6HPRN PRN NEB 06/19/25 18:45 Cancel Ipratropium [place] 0.5 mg Q4HPRN PRN NEB 06/19/25 18:45 Cancel Diagnostic Test (Pha) 1 strip ACHS 06/19/25 22:00 06/23/25 11:30 1 STRIP Insulin Human Regular ACHS SC 06/19/25 22:00 06/23/25 12:03 2 UNITS Dextrose 50 ml UD PRN IV 06/19/25 18:45 Aspirin 81 mg DAILY PO 06/21/25 10:00 06/23/25 10:12 81 MG Citalopram Hydrobromide 20 mg DAILY PO 06/21/25 10:00 06/23/25 10:11 20 MG Donepezil HCl 10 mg HS PO 06/20/25 22:00 06/22/25 22:40 10 MG Nifedipine 90 mg DAILY PO 06/21/25 10:00 06/23/25 10:11 90 MG Vancomycin HCl 0 ml @ 0 mls/hr UD IV 06/21/25 11:30 Amiodarone HCL/ Dextrose 200 ml @ 16.66 mls/ hr Q12H IV 06/21/25 15:30 06/23/25 05:27 16.66 MLS/HR Prazosin HCl 1 mg Q8HR PO 06/21/25 22:00 06/23/25 05:28 1 MG Atenolol 25 mg QPM PO 06/22/25 18:00 Hold Apixaban 2.5 mg BID PO 06/22/25 22:00 06/23/25 10:13 2.5 MG Vancomycin HCl 100 ml @ 100 mls/hr Q12H IV 06/23/25 01:00 06/23/25 01:28 100 MLS/HR objective Comfortable in bed without distress. Nurse at bedside Heart regular rate and rhythm S1-S2. Lungs fair air movement poor inspiratory effort no wheezing. Abdomen soft nontender positive bowel sounds. Extremities chronic venous stasis noted in the lower extremities with the positive pulses laboratory and microbiology Laboratory Tests 06/23/25 05:05 06/22/25 05:31 Test 06/22/25 05:31 Range/Units Serum Glucose 103 74-106 mg/dL Assessment/Plan Continue current antibiotics. Patient's mentation appears to back to normal baseline status. He is clinically ready to be discharged home. However given his arterial Dopplers positive for chronic occlusion I will have vascular surgery consultation/evaluation to see if anything needs to be done inpatient versus outpatient or medical management. Further clinical management per recommendations from vascular surgery. Meantime we will order a CT angiogram lower extremity to further evaluate the arterial stenosis. Problems(with codes): (1) Peripheral arterial occlusive disease (2) Sinus tachycardia (3) Metabolic encephalopathy (4) Hypertension (5) Atrial fibrillation (6) Gram-positive bacteremia Dietary Evaluation Review Comments: 1) Initiate MVI @ 1 tb qd 2) Encourage optimal PO intake 3) Advance to 60g CCHO cardiac diet when medically feasible 4) Follow-up with cardiology, pulmonology, and neurology 5) Continue to monitor I&O, labs, and skin integrity Expected Outcomes/Goals: 1) appetite and labs to improve 2) diet to advance 3) GI symptoms to resolve 4) f/u in 3-5 days Plan discussed with: Patient, Other ARLEN LANGE MD Jun 23, 2025 13:11
[2025-06-23] MEDS: IOHEXOL 350 MG/ML 100ML IJ ONE (14:28)
[2025-06-23] MEDS: METOPROLOL SUCCINATE XL 50 MG TAB PO ONE (15:00)
--- NOTE | 2025-06-23 15:55 | DVH ---
CLINICAL INFORMATION: Peripheral arterial disease TECHNIQUE: Axial CTA imaging of the aorta from just above the level of the aortic arch and including the ascending aorta, aortic arch, descending thoracic aorta, abdominal aorta, and bilateral lower ext remities was performed after the uneventful administration of 100 mL Omnipaque 350 IV contrast. Clyde nal and sagittal reformatted images were obtained. Volume rendered 3-D reconstructed images of the ar terial vasculature were constructed at an independent workstation with concurrent physician supervisi on. One or more of the following dose reduction techniques were used: Automated exposure control. Adj ustment of mA and/or kV according to patient size. CTDIvol = 43.41, 13.93, 0.14 mGy DLP = 2043.27 mGy-cm COMPARISON: None FINDINGS: Examination is limited due to motion artifact and prominent beam hardening artifact, partly due to the patient being scanned with arms at sides. No aneurysm or dissection visualized in the tho racic aorta or abdominal aorta. Origins of the brachiocephalic, left common carotid, and left subclav fran arteries are patent. Origins of the celiac artery, SMA, bilateral renal arteries, and CHER appear patent. Dense calcification of the abdominal aorta, common iliac arteries, and internal and external iliac arteries bilaterally there are areas of moderate stenosis in the internal iliac arteries bilate rally. External iliac arteries patent throughout their courses. Right common femoral artery is patent. Dense calcification at the right Profunda and SFA with areas o f moderate stenosis at the mid to distal SFA. Dense calcification in the right popliteal artery with areas of severe stenosis to near complete occlusion. There is dense calcification of the anterior tib ial, posterior tibial, and peroneal arteries throughout their courses. No flow visualized in the ante rior or posterior tibial arteries. There appears to be flow in the peroneal artery to the level of t he ankle. No visualized flow of contrast in the dorsalis pedis artery. Questionable minimal contrast in the posterior tibial artery at the foot, may be due to collateral vessels. There is moderate subcu taneous edema in the right lower leg. The left common femoral artery is patent. Wuitmfvs-yc-vuxwdr calcification throughout the left SFA an d profunda without evidence of occlusion or significant stenosis. Densely calcified popliteal artery with areas of cbdy-gv-abuwqsgj narrowing. Dense calcification in the left anterior tibial, posterior tibial, and peroneal arteries. No flow of contrast visualized in the anterior posterior tibial arteri es throughout most of the extent of the left lower leg. There is flow in the left peroneal artery to the level of the ankle. There appears to be some areas of flow in the posterior tibial artery at the ankle and foot, may be due to collateral vessels. No flow visualized in the dorsalis pedis artery at the foot. There is jrxp-je-bkldjwqa subcutaneous edema in the left lower leg. There is mild cardiomegaly. Small pericardial effusion. Dense coronary artery calcification and/or c oronary stents. No mediastinal lymphadenopathy. Respiratory motion artifact limits evaluation of the visualized portions of the lungs. No focal consolidation or pleural effusion visualized. Portions of the lung apices are not included within the lzhtg-eu-qubq of the exam. Visualized portions of the ch est wall appear unremarkable. There is no central pulmonary embolism. Limited evaluation for lobar, segmental, or subsegmental pulmonary emboli due to suboptimal contrast opacification of the pulmonary arteries and respiratory motion artifact. There is hepatic steatosis. There are a few small subcenti meter low-attenuation lesions in the liver, which are too small to characterize. No definite calcifie d gallstones visualized in the gallbladder. No biliary ductal dilatation. Heterogeneous enhancement o f the spleen is seen, which is normal for the arterial phase of contrast. Moderate pancreatic atrophy . Adrenal glands appear unremarkable. There is no hydronephrosis in either kidney. Small low-attenuat ion lesions in the kidneys bilaterally, with the largest lesion in the left kidney demonstrating simp le fluid attenuation, likely a cyst. The smaller lesions are also likely cysts, but too small to kenan acterize. There is no retroperitoneal lymphadenopathy. No small bowel obstruction. Appendix is visual ized and appears unremarkable. Scattered colonic diverticula without adjacent inflammatory changes to suggest diverticulitis. Prostate is grossly unremarkable. Bladder is underdistended and not well zafar luated. Small fat containing left inguinal hernia. No acute or suspicious osseous abnormality identif ied IMPRESSION: 1. No thoracic or abdominal aortic aneurysm or dissection. 2. No flow of contrast visualized in the right anterior or posterior tibial arteries throughout their courses in the right lower leg. There is flow in the right peroneal artery to the level of the ankl e. No flow of contrast in the right dorsalis pedis artery. Questionable minimal contrast opacificati on in the right posterior tibial artery at the foot, may be due to collateral vessels. 3. No flow of contrast visualized in the left anterior or posterior tibial arteries throughout their courses in the right lower leg. The left peroneal artery demonstrates flow to the level of the ankle. There are areas of flow of contrast in the posterior tibial artery at the ankle and foot, likely due to collateral vessels. No flow visualized in the left dorsalis pedis artery. 4. Mild cardiomegaly with small pericardial effusion and dense coronary artery calcification and/or s tents. 5. Small fat containing left inguinal hernia. 6. Scattered colonic diverticula without adjacent inflammatory changes to suggest diverticulitis. 7. Additional findings as described above.
--- NOTE | 2025-06-23 23:48 | DVHPN2 ---
Progress Note - Dictate Date Seen: Jun 23, 2025 Medical Necessity Reason Pt with a Central, PICC or Fol: No Subjective Patient was seen and evaluated in follow up. Repeat blood cultures negative for any growth. Peripheral arterial duplex shows positive arterial occlusions likely chronic in nature. BS are in the 140's. Telemetry reviewed. vital signs Vital Sign Date Time Temp Pulse Resp B/P (MAP) Pulse Ox O2 Delivery O2 Flow Rate FiO2 06/23/25 10:11 152/67 06/23/25 10:00 96 Nasal Cannula 2.0 06/23/25 10:00 28 06/23/25 09:00 98.4 89 22 98.4 Total Intake and Output 06/22/25 06/22/25 06/23/25 15:00 23:00 07:00 Intake Total 240 ml 500 ml Balance 240 ml 500 ml medications Current Medications Medications Dose Ordered Sig/Lucy Route Start Time Stop Time Status Last Admin Dose Admin Sodium Chloride 10 ml Q8HR IV 06/19/25 22:00 06/23/25 05:27 10 ML Ondansetron HCl 4 mg Q4HP PRN IV 06/19/25 18:45 Acetaminophen 650 mg Q6HP PRN PO 06/19/25 18:45 Nitroglycerin 0.4 mg Q5MINP PRN SL 06/19/25 18:45 Clonidine HCl 0.3 mg Q7D TD 06/19/25 18:45 06/19/25 21:11 0.3 MG Lorazepam 0.5 mg Q6HP PRN IV 06/19/25 18:45 Albuterol 2.5 mg Q6HPRN PRN NEB 06/19/25 18:45 Cancel Ipratropium [place] 0.5 mg Q4HPRN PRN NEB 06/19/25 18:45 Cancel Diagnostic Test (Pha) 1 strip ACHS 06/19/25 22:00 06/23/25 11:30 1 STRIP Insulin Human Regular ACHS SC 06/19/25 22:00 06/23/25 12:03 2 UNITS Dextrose 50 ml UD PRN IV 06/19/25 18:45 Aspirin 81 mg DAILY PO 06/21/25 10:00 06/23/25 10:12 81 MG Citalopram Hydrobromide 20 mg DAILY PO 06/21/25 10:00 06/23/25 10:11 20 MG Donepezil HCl 10 mg HS PO 06/20/25 22:00 06/22/25 22:40 10 MG Nifedipine 90 mg DAILY PO 06/21/25 10:00 06/23/25 10:11 90 MG Vancomycin HCl 0 ml @ 0 mls/hr UD IV 06/21/25 11:30 Amiodarone HCL/ Dextrose 200 ml @ 16.66 mls/ hr Q12H IV 06/21/25 15:30 06/23/25 05:27 16.66 MLS/HR Prazosin HCl 1 mg Q8HR PO 06/21/25 22:00 06/23/25 05:28 1 MG Atenolol 25 mg QPM PO 06/22/25 18:00 Hold Apixaban 2.5 mg BID PO 06/22/25 22:00 06/23/25 10:13 2.5 MG Vancomycin HCl 100 ml @ 100 mls/hr Q12H IV 06/23/25 01:00 06/23/25 01:28 100 MLS/HR objective GENERAL: Alert and oriented x 2. No acute distress. EYES: PERRL, EOMI. Anicteric. HENT: Moist mucous membranes. LUNGS: Clear to auscultation bilaterally. CARDIOVASCULAR: Regular rate and rhythm. ABDOMEN: Soft, nontender and nondistended. EXTREMITIES: BLE weakness. SKIN: Warm, dry. laboratory and microbiology Laboratory Tests 06/23/25 05:05 06/22/25 05:31 Test 06/22/25 05:31 Range/Units Serum Glucose 103 74-106 mg/dL Problem List Acute metabolic encephalopathy. History of recent CVA. CHF. HTN emergency. NSTEMI type 2 likely due to above. A Fib with RVR. Hematemesis. Type 2 DM. Assessment/Plan Continued all current supportive medical care. Eliquis. IV Amiodarone. Aspirin. IV antibiotics as ordered. Nifedipine. DVT prophylactics. Tylenol for pain management. Additional plan as per the hospital course. Dietary Evaluation Review Comments: 1) Initiate MVI @ 1 tb qd 2) Encourage optimal PO intake 3) [facility] when medically feasible 4) Follow-up with cardiology, pulmonology, and neurology 5) Continue to monitor I&O, labs, and skin integrity Expected Outcomes/Goals: 1) appetite and labs to improve 2) diet to advance 3) GI symptoms to resolve 4) f/u in 3-5 days Plan discussed with: Patient SYDNI DOUGLASS MD Jun 23, 2025 13:12
[2025-06-24] VITALS (7 sets, daily range): BP systolic 155–179; BP diastolic 70–83; PULSE 74–87; RESP 18–20; TEMP 97–98.1; O2SAT 95–100
--- NOTE | 2025-06-24 09:13 | DVHPN2 ---
Progress Note Date Seen: Jun 24, 2025 Resident Creating Document: CECILIA LOU RESIDENT Medical Necessity Reason Pt with a Central, PICC or Fol: No Subjective Review of Systems Patient seen and examined at bedside Awaiting vascular surgeon evaluation No further vomiting or nausea Tolerating diet Last BM 06/22/2025 Objective vital signs Vital Sign Date Time Temp Pulse Resp B/P (MAP) Pulse Ox O2 Delivery O2 Flow Rate FiO2 06/24/25 05:04 139/86 06/24/25 05:00 97.9 82 19 97 97.9 06/23/25 20:00 Nasal Cannula* 2 28 Total Intake and Output 06/23/25 06/23/25 06/24/25 15:00 23:00 07:00 Intake Total 700 ml 320 ml Output Total 900 ml Balance -200 ml 320 ml medications Current Medications Medications Dose Ordered Sig/Lucy Route Start Time Stop Time Status Last Admin Dose Admin Sodium Chloride 10 ml Q8HR IV 06/19/25 22:00 06/24/25 05:03 10 ML Ondansetron HCl 4 mg Q4HP PRN IV 06/19/25 18:45 Acetaminophen 650 mg Q6HP PRN PO 06/19/25 18:45 Nitroglycerin 0.4 mg Q5MINP PRN SL 06/19/25 18:45 Clonidine HCl 0.3 mg Q7D TD 06/19/25 18:45 06/19/25 21:11 0.3 MG Lorazepam 0.5 mg Q6HP PRN IV 06/19/25 18:45 Albuterol 2.5 mg Q6HPRN PRN NEB 06/19/25 18:45 Cancel Ipratropium [place] 0.5 mg Q4HPRN PRN NEB 06/19/25 18:45 Cancel Diagnostic Test (Pha) 1 strip ACHS 06/19/25 22:00 06/24/25 05:04 1 STRIP Insulin Human Regular ACHS SC 06/19/25 22:00 06/24/25 01:38 2 UNITS Dextrose 50 ml UD PRN IV 06/19/25 18:45 Aspirin 81 mg DAILY PO 06/21/25 10:00 06/23/25 10:12 81 MG Citalopram Hydrobromide 20 mg DAILY PO 06/21/25 10:00 06/23/25 10:11 20 MG Donepezil HCl 10 mg HS PO 06/20/25 22:00 06/23/25 21:57 10 MG Nifedipine 90 mg DAILY PO 06/21/25 10:00 06/23/25 10:11 90 MG Vancomycin HCl 0 ml @ 0 mls/hr UD IV 06/21/25 11:30 Prazosin HCl 1 mg Q8HR PO 06/21/25 22:00 06/24/25 05:04 1 MG Apixaban 2.5 mg BID PO 06/22/25 22:00 06/23/25 21:57 2.5 MG Vancomycin HCl 100 ml @ 100 mls/hr Q12H IV 06/23/25 01:00 06/24/25 01:00 100 MLS/HR Metoprolol Succinate 25 mg DAILY PO 06/24/25 10:00 Examination General Appearance: Cooperative. Well developed. Well nourished. NAD Pulmonary/Respiratory: Chest non-tender. Good bilateral air entry Cardiovascular/Chest: Regular rate and rhythm. No murmurs. No JVD. Peripheral Pulses: Decreased pedal pulses bilaterally Abdominal Exam: Normal bowel sounds. Soft. normal abdomen, no visible veins, Nontender. No hepatospenomegaly. No masses Ankle Exam: Negative ankle edema Neuro/Mental Status: A&O x4. Incoherent likely residual from CVA Skin Exam: Stasis dermatitis bilateral lower extremities. Right lower extremity extensive stasis dermatitis with overlying plaques laboratory and microbiology Laboratory Tests 06/24/25 00:32 06/22/25 05:31 Test 06/22/25 05:31 Range/Units Serum Glucose 103 74-106 mg/dL Microbiology Date/Time Source Procedure Growth Status 06/21/25 11:50 Blood Blood Culture - Preliminary NO GROWTH AFTER 48 HOURS OF INCUBATION. Resulted Labs and/or images reviewed: Labs reviewed by me, Image(s) reviewed by me Problem List/Assessment/Plan Problem List/Assessment/Plan Acute intractable vomiting Hematemesis History of CVA with residual deficits Possible diabetic gastroparesis Atrial fibrillation Acute on chronic peripheral arterial disease Plan: Consider vascular surgery consultation Outpatient follow up with GI recommended Continue conservative management; tolerating current diet without any further nausea or vomiting We will follow H&H GI team will remain on standby if EGD is needed Thank you so much for the opportunity to consult on your patient. GI team will follow the patient. In case of any questions or concerns please feel free to reach out. Plan discussed with Dr. Vu Plan discussed with: Other (RN) Dietary Evaluation Review Comments: 1) Initiate MVI @ 1 tb qd 2) Encourage optimal PO intake 3) Advance to 60g CCHO cardiac diet when medically feasible 4) Follow-up with cardiology, pulmonology, and neurology 5) Continue to monitor I&O, labs, and skin integrity Expected Outcomes/Goals: 1) appetite and labs to improve 2) diet to advance 3) GI symptoms to resolve 4) f/u in 3-5 days CECILIA LOU RESIDENT Jun 24, 2025 09:13
[2025-06-24] MEDS: METOPROLOL SUCCINATE XL 50 MG TAB PO SCH (09:36)
[2025-06-24] MEDS: VANCOMYCIN 500mg/100mL 100 ML IV SCH (12:27)
--- NOTE | 2025-06-24 12:37 | DVHDS2 ---
Discharge Summary Date of Admission Jun 19, 2025 at 18:35 Date of Discharge: Jun 24, 2025 Labs/Diagnostic Data: Laboratory Results Test 06/24/25 05:07 06/24/25 00:32 06/22/25 05:31 06/21/25 05:32 POC Glucose 123 mg/dl (70-106) Creatinine 1.12 mg/dL (0.700-1.30) Glomerular Filtration Rate Calc 65 mL/min (>90) Vancomycin Level Trough 17.0 ug/mL (5-10) White Blood Count 6.8 10^3/uL (4.4-10.8) Red Blood Count 4.82 10^6/uL (4.5-5.90) Hemoglobin 14.4 g/dL (13.5-17.5) Hematocrit 41.9 % (41.0-53.0) Mean Corpuscular Volume 86.9 fL (80.0-100.0) Mean Corpuscular Hemoglobin 29.9 pg (28.0-32.0) Mean Corpuscular Hemoglobin Concent 34.4 g/dL (32.0-36.0) Red Cell Distribution Width 14.3 % (11.8-14.3) Platelet Count 117 10^3/uL (140-450) Mean Platelet Volume 9.7 fL (6.9-10.8) Neutrophils (%) (Auto) 65.7 % (37.0-80.0) Lymphocytes (%) (Auto) 22.4 % (10.0-50.0) Monocytes (%) (Auto) 8.0 % (0.0-12.0) Eosinophils (%) (Auto) 3.3 % (0.0-7.0) Basophils (%) (Auto) 0.6 % (0.0-2.0) Neutrophils # (Auto) 4.4 10 ^3/uL (1.6-8.6) Lymphocytes # (Auto) 1.5 10 ^3/uL (0.4-5.4) Monocytes # (Auto) 0.5 10 ^3/uL (0-1.3) Eosinophils # (Auto) 0.2 10 ^3/uL (0-0.8) Basophils # (Auto) 0 10 ^3/uL (0-0.2) Nucleated Red Blood Cells 0.1 % Sodium Level 143 mmol/L (136-145) Potassium Level 3.6 mmol/L (3.5-5.1) Chloride Level 107 mmol/L (98-107) Carbon Dioxide Level 26 mmol/L (20-31) Anion Gap 10 (5-15) Blood Urea Nitrogen 16 mg/dL (9-23) BUN/Creatinine Ratio 15.8 (10.0-20.0) Serum Glucose 103 mg/dL (74-106) Calcium Level 8.3 mg/dL (8.7-10.4) Magnesium Level 2.2 mg/dL (1.6-2.6) Total Bilirubin 0.4 mg/dL (0.2-1.0) Aspartate Amino Transferase (AST) 22 U/L (13-40) Alanine Aminotransferase (ALT) < 9 U/L (7-40) Alkaline Phosphatase 46 U/L (46-116) Total Protein 5.8 g/dL (5.7-8.2) Albumin 3.3 g/dL (3.2-4.8) Random Vancomycin Level 9.3 ug/mL (5-10) Lactic Acid Level 0.9 mmol/L (0.4-2.0) Test 06/19/25 19:22 06/19/25 16:32 Prothrombin Time 13.4 sec (9.3-11.8) Prothrombin Time INR 1.30 (0.9-1.15) Activated Partial Thromboplast Time 25.4 SEC (24.5-34.5) Hemoglobin A1c 5.8 % A1C (<5.7) Ammonia < 10 umol/L (11-32) B-Type Natriuretic Peptide 2332.39 pg/mL (0-100) Thyroid Stimulating Hormone (TSH) 0.21 uIU/mL (0.55-4.78) Troponin I High Sensitivity 870 ng/L (</=54) Other Laboratory Tests 06/24/25 00:32 06/22/25 05:31 Brief Hx & Hospital Course: Eleno Torres is a 84-year-old male, poor historian with a PMH of CHF, recent CVA with right-sided deficits, depression, type 2 DM on insulin, HLD, HTN, NV, anxiety presented to the ED with altered level of consciousness. Patient is poor historian, history obtained from medical records per EMS report patient recently had stroke and bed-bound with the assistance of home care. Per patient's daughter patient becoming altered after grabbing his chest and vomiting 1 time while on bed. Patient was noted to have been found hypertensive at 200 systolic on scene. According to EMS patient is DNI. His altered mentation felt secondary to underlying infection. Patient has a chronic venous stasis and dermatitis in both lower extremities with a known chronic peripheral arterial disease. Patient had a positive blood cultures with staph organisms felt likely source is lower extremity cellulitis. Patient received IV antibiotics and his symptoms resolved. His mentation is back to baseline normal status. Given his chronic peripheral arterial disease patient had a vascular studies including CT angiogram of the lower extremities showed a no circulation in both lower extremities. This is discussed with the patient's family. Apparently patient has a known disease and has not followed up with any vascular surgery outpatient basis. Therefore I have advised him given the poor circulation with the lower extremity leg infection and bacteremia that he is at risk for further continued infections. Therefore I have advised him to have patient follow up with the vascular surgery with the [facility] in the next 2-3 weeks to have further evaluations and management as appropriate. Meantime patient is started on aspirin and vasodilator for his peripheral arterial disease. Patient is prescribed oral antibiotic finish the course. Otherwise given he is tolerating diet mentation improved back to baseline normal status has been discharged home in stable condition. Patient's family verbalized understanding his hospital diagnosis, treatment he received, discharge medications and agree with the discharge follow-up plan of care. Operations or Procedures PROCEDURE(s): CTAAA - CT ANGIO ABD AORTA W RUN OFF REASON: PAD ORDER NUMBER(s): [id number], ACCESSION NUMBER(s): [id number] CLINICAL INFORMATION: Peripheral arterial disease TECHNIQUE: Axial CTA imaging of the aorta from just above the level of the aortic arch and including the ascending aorta, aortic arch, descending thoracic aorta, abdominal aorta, and bilateral lower extremities was performed after the uneventful administration of 100 mL Omnipaque 350 IV contrast. Coronal and sagittal reformatted images were obtained. Volume rendered 3-D reconstructed images of the arterial vasculature were constructed at an independent workstation with concurrent physician supervision. One or more of the following dose reduction techniques were used: Automated exposure control. Adjustment of mA and/or kV according to patient size. CTDIvol = 43.41, 13.93, 0.14 mGy DLP = 2043.27 mGy-cm COMPARISON: None FINDINGS: Examination is limited due to motion artifact and prominent beam hardening artifact, partly due to the patient being scanned with arms at sides. No aneurysm or dissection visualized in the thoracic aorta or abdominal aorta. Origins of the brachiocephalic, left common carotid, and left subclavian arteries are patent. Origins of the celiac artery, SMA, bilateral renal arteries, and CHER appear patent. Dense calcification of the abdominal aorta, common iliac arteries, and internal and external iliac arteries bilaterally there are areas of moderate stenosis in the internal iliac arteries bilaterally. External iliac arteries patent throughout their courses. Right common femoral artery is patent. Dense calcification at the right Profunda and SFA with areas of moderate stenosis at the mid to distal SFA. Dense calcification in the right popliteal artery with areas of severe stenosis to near complete occlusion. There is dense calcification of the anterior tibial, posterior tibial, and peroneal arteries throughout their courses. No flow visualized in the anterior or posterior tibial arteries. There appears to be flow in the peroneal artery to the level of the ankle. No visualized flow of contrast in the dorsalis pedis artery. Questionable minimal contrast in the posterior tibial artery at the foot, may be due to collateral vessels. There is moderate subcutaneous edema in the right lower leg. The left common femoral artery is patent. Gxkybbqt-rs-ogmape calcification throughout the left SFA and profunda without evidence of occlusion or significant stenosis. Densely calcified popliteal artery with areas of qjpr-lg-cqnuwkzn narrowing. Dense calcification in the left anterior tibial, posterior tibial, and peroneal arteries. No flow of contrast visualized in the anterior posterior tibial arteries throughout most of the extent of the left lower leg. There is flow in the left peroneal artery to the level of the ankle. There appears to be some areas of flow in the posterior tibial artery at the ankle and foot, may be due to collateral vessels. No flow visualized in the dorsalis pedis artery at the foot. There is eoqi-rn-brpkrhco subcutaneous edema in the left lower leg. There is mild cardiomegaly. Small pericardial effusion. Dense coronary artery calcification and/or coronary stents. No mediastinal lymphadenopathy. Respiratory motion artifact limits evaluation of the visualized portions of the lungs. No focal consolidation or pleural effusion visualized. Portions of the lung apices are not included within the btvop-ih-kcrd of the exam. Visualized portions of the chest wall appear unremarkable. There is no central pulmonary embolism. Limited evaluation for lobar, segmental, or subsegmental pulmonary emboli due to suboptimal contrast opacification of the pulmonary arteries and respiratory motion artifact. There is hepatic steatosis. There are a few small subcentimeter low-attenuation lesions in the liver, which are too small to characterize. No definite calcified gallstones visualized in the gallbladder. No biliary ductal dilatation. Heterogeneous enhancement of the spleen is seen, which is normal for the arterial phase of contrast. Moderate pancreatic atrophy. Adrenal glands appear unremarkable. There is no hydronephrosis in either kidney. Small low-attenuation lesions in the kidneys bilaterally, with the largest lesion in the left kidney demonstrating simple fluid attenuation, likely a cyst. The smaller lesions are also likely cysts, but too small to characterize. There is no retroperitoneal lymphadenopathy. No small bowel obstruction. Appendix is visualized and appears unremarkable. Scattered colonic diverticula without adjacent inflammatory changes to suggest diverticulitis. Prostate is grossly unremarkable. Bladder is underdistended and not well evaluated. Small fat containing left inguinal hernia. No acute or suspicious osseous abnormality identified IMPRESSION: 1. No thoracic or abdominal aortic aneurysm or dissection. 2. No flow of contrast visualized in the right anterior or posterior tibial arteries throughout their courses in the right lower leg. There is flow in the right peroneal artery to the level of the ankle. No flow of contrast in the right dorsalis pedis artery. Questionable minimal contrast opacification in the right posterior tibial artery at the foot, may be due to collateral vessels. 3. No flow of contrast visualized in the left anterior or posterior tibial arteries throughout their courses in the right lower leg. The left peroneal artery demonstrates flow to the level of the ankle. There are areas of flow of contrast in the posterior tibial artery at the ankle and foot, likely due to collateral vessels. No flow visualized in the left dorsalis pedis artery. 4. Mild cardiomegaly with small pericardial effusion and dense coronary artery calcification and/or stents. 5. Small fat containing left inguinal hernia. 6. Scattered colonic diverticula without adjacent inflammatory changes to suggest diverticulitis. 7. Additional findings as described above. ATED BY: PAULO THOMPSON DO DICTATED DATE/TIME: 06/23/25 8520 Condition at Discharge: Stable Final Diagnosis/Problems List severe PAD, BLE cellulitis, aloc, malignant HTN Discharge Disposition: Home with Health Services Discharge Instruct/Medications Diet: Consistent carbohydrate, Cardiac 2g Na,low cholest Activity: No Restrictions, As Tolerated Follow Up/Referral: Vascular surgeon next week in office for PAD eval and management. PCP 2 weeks for BP management Medications: as prescribed AND home medications per dc list Scheduled Amoxicillin & Pot Clavulanate (Augmentin), 1 TAB PO BID Aspirin (Aspir-81), 1 TAB PO DAILY Cilostazol (Cilostazol), 1 TAB PO BID Citalopram Hydrobromide (Citalopram), 20 MG PO DAILY, (Reported) Clonidine Hydrochloride (Clonidine Hcl), 1 TAB PO TID, (Reported) Donepezil Hydrochloride (Donepezil Hydrochloride), 1 TAB PO DAILY, (Reported) Gnplbctwhwp-Mtpakjxmdvuf-Wjbug (Trelegy Ellipta 200-62.5-25 Mcg/INH), 1 PUFF INH DAILY, (Reported) Insulin Lispro (Human) (Humalog), 0 SC TIDWM, (Reported) Irbesartan (Irbesartan), 1 TAB PO DAILY, (Reported) Lorazepam (Lorazepam), 1 TAB PO DAILYP, (Reported) Nifedipine (Nifedipine Er), 1 TAB PO DAILY Nutsb-1-Xapp Ethyl Esters (Ahmwe-3-Nxek Ethyl Esters), 1 CAP PO BID, (Reported) Prazosin HCl (Prazosin Hydrochloride), 1 CAP PO TID, (Reported) Tirzepatide (Mounjaro), 15 MG SC QWEEKLY, (Reported) Miscellaneous Medications Insulin Glargine (Basaglar Kwikpen), 13 UNIT SC, (Reported) Discontinued Medications Cephalexin Monohydrate (Cephalexin), 1 CAP PO TID Cobalamine Combinations (B-12 1000), 1,000 MCG SL, (Reported) Nutritional Supplements ([place] Oil), 1,000 MG PO, (Reported) Discharge Statement: "Patient was advised to return to the ER or call 911 if any headaches, dizziness, shortness of breath, chest pain, abdominal pain, bleeding, fevers, or worsening of medical condition. Patient was counseled about treatment plan, medications, possible side effects, patientverbalized understanding. All questions were answered to the best of my ability. This discharge took greater then 30 minutes in planning, reviewing documentation, counseling the patient, and discussing with other team members." ASSESSMENT ASSESSMENT Assessment severe PAD, BLE cellulitis, aloc, malignant HTN ARLEN LANGE MD Jun 24, 2025 12:37
--- NOTE | 2025-06-24 13:13 | ECG ---
[facility] Test Date: 2025-06-19 Test Time: 17:51:17 Pat Name: PAMELA SELBY Department: Room: 0217T B Gender: M Online Content Coordinator: ALEXY : 1940 Requested By: LAY BENJAMIN Order Number: [id number] Reading MD: Hal Haynes Measurements Intervals Fries Rate: 86 P: 0 IL: 153 QRS: -84 QRSD: 142 T: 124 QT: 485 QTc: 581 Interpretive Statements Sinus rhythm RBBB and LAFB Probable left ventricular hypertrophy Abnrm T, consider ischemia, anterolateral lds Electronically Signed On 06-29-2025 18:51:02 PDT by Hal Haynes Please click the below link to view image of tracing.
--- NOTE | 2025-06-24 23:23 | DVHPN2 ---
Progress Note - Dictate Date Seen: Jun 24, 2025 Medical Necessity Reason Pt with a Central, PICC or Fol: No Subjective Patient was seen and evaluated in follow up. Patient has no new complaints at this time. Patient denies any cardiac symptoms. Patient is cardiac stable for discharge. Telemetry reviewed. vital signs Vital Sign Date Time Temp Pulse Resp B/P (MAP) Pulse Ox O2 Delivery O2 Flow Rate FiO2 06/24/25 10:00 100 Room Air 0.0 06/24/25 10:00 21 06/24/25 09:36 87 158/77 06/24/25 09:00 97.0 18 97.0 Total Intake and Output 06/23/25 06/23/25 06/24/25 15:00 23:00 07:00 Intake Total 700 ml 320 ml Output Total 900 ml Balance -200 ml 320 ml medications Current Medications Medications Dose Ordered Sig/Lucy Route Start Time Stop Time Status Last Admin Dose Admin Sodium Chloride 10 ml Q8HR IV 06/19/25 22:00 06/24/25 05:03 10 ML Ondansetron HCl 4 mg Q4HP PRN IV 06/19/25 18:45 Acetaminophen 650 mg Q6HP PRN PO 06/19/25 18:45 Nitroglycerin 0.4 mg Q5MINP PRN SL 06/19/25 18:45 Clonidine HCl 0.3 mg Q7D TD 06/19/25 18:45 06/19/25 21:11 0.3 MG Lorazepam 0.5 mg Q6HP PRN IV 06/19/25 18:45 Albuterol 2.5 mg Q6HPRN PRN NEB 06/19/25 18:45 Cancel Ipratropium [place] 0.5 mg Q4HPRN PRN NEB 06/19/25 18:45 Cancel Diagnostic Test (Pha) 1 strip ACHS 06/19/25 22:00 06/24/25 05:04 1 STRIP Insulin Human Regular ACHS SC 06/19/25 22:00 06/24/25 01:38 2 UNITS Dextrose 50 ml UD PRN IV 06/19/25 18:45 Aspirin 81 mg DAILY PO 06/21/25 10:00 06/24/25 09:34 81 MG Citalopram Hydrobromide 20 mg DAILY PO 06/21/25 10:00 06/24/25 09:33 20 MG Donepezil HCl 10 mg HS PO 06/20/25 22:00 06/23/25 21:57 10 MG Nifedipine 90 mg DAILY PO 06/21/25 10:00 06/24/25 09:35 90 MG Vancomycin HCl 0 ml @ 0 mls/hr UD IV 06/21/25 11:30 Prazosin HCl 1 mg Q8HR PO 06/21/25 22:00 06/24/25 05:04 1 MG Apixaban 2.5 mg BID PO 06/22/25 22:00 06/24/25 09:34 2.5 MG Metoprolol Succinate 25 mg DAILY PO 06/24/25 10:00 06/24/25 09:36 25 MG Vancomycin HCl 100 ml @ 200 mls/hr Q12H IV 06/24/25 13:00 objective GENERAL: Alert and oriented x 2. No acute distress. EYES: PERRL, EOMI. Anicteric. HENT: Moist mucous membranes. LUNGS: Clear to auscultation bilaterally. CARDIOVASCULAR: Regular rate and rhythm. ABDOMEN: Soft, nontender and nondistended. EXTREMITIES: BLE weakness. SKIN: Warm, dry. laboratory and microbiology Laboratory Tests 06/24/25 00:32 06/22/25 05:31 Test 06/22/25 05:31 Range/Units Serum Glucose 103 74-106 mg/dL Problem List Acute metabolic encephalopathy. History of recent CVA. CHF. HTN emergency. NSTEMI type 2 likely due to above. A Fib with RVR. Hematemesis. Type 2 DM. Assessment/Plan Continued all current supportive medical care. Eliquis. Aspirin. Nifedipine. Metoprolol. IV antibiotics as ordered. Tylenol for pain management. Additional plan as per the hospital course. Dietary Evaluation Review Comments: 1) Initiate MVI @ 1 tb qd 2) Encourage optimal PO intake 3) Advance to 60g [facility] cardiac diet when medically feasible 4) Follow-up with cardiology, pulmonology, and neurology 5) Continue to monitor I&O, labs, and skin integrity Expected Outcomes/Goals: 1) appetite and labs to improve 2) diet to advance 3) GI symptoms to resolve 4) f/u in 3-5 days Plan discussed with: Patient SYDNI DOUGLASS MD Jun 24, 2025 12:14
== END 2025-06-24 16:40 | disposition home health service (06) | DRG 91 ==
LOC: ER 11:55 → EDBD 11:55 → OVERFLOW 18:35 → TELE-CENTR 06-20 16:43
PROVIDERS: ADMIT Internal Medicine; ATTEND Hospitalist
DX: G92.8 Other toxic encephalopathy (principal); I21.A1 Myocardial infarction type 2; I16.1 Hypertensive emergency; K92.0 Hematemesis; L03.115 Cellulitis of right lower limb; L03.116 Cellulitis of left lower limb; R78.81 Bacteremia; I11.0 Hypertensive heart disease with heart failure; I48.91 Unspecified atrial fibrillation; I50.9 Heart failure, unspecified; E78.5 Hyperlipidemia, unspecified; E11.51 Type 2 diabetes mellitus with diabetic peripheral angiopathy without gangrene; L30.8 Other specified dermatitis; I87.8 Other specified disorders of veins; Z74.01 Bed confinement status; Z79.4 Long term (current) use of insulin; Z88.8 Allergy status to other drugs, medicaments and biological substances; Z79.82 Long term (current) use of aspirin; I25.2 Old myocardial infarction; F41.9 Anxiety disorder, unspecified; Z83.3 Family history of diabetes mellitus; Z86.73 Personal history of transient ischemic attack (TIA), and cerebral infarction without residual deficits
CPT/HCPCS: 36415; 70450; 71045; 75635; 80048; 80053; 80202; 82140; 82565; 82962; 83036; 83605; 83735; 83880; 84443; 84484; 85025; 85610; 85730; 87040; 87077; 87186; 93005; 93306; 93925; 96361; 96374; 96375; 99291; G0378; J1815; J2405

== ENCOUNTER 2025-09-19 23:04 | Emergency (ER) | payer OTHER, MEDICAID ==
[~2025-09-19] VITALS: Ht 170.2 cm; Wt 63.8 kg
[~2025-09-19 23:04] MED LIST changes: +AMOX500T86 PO; -CEPH500C PO; +CILO100T3 PO; -COBA1000 SL; -[UNRECOGNIZED DRUG - CODE] PO
[2025-09-19 23:05] VITALS: BP 0/0; PULSE 0; RESP 0; TEMP 104.3; O2SAT 0
--- NOTE | 2025-09-19 23:21 | ED.PDOC ---
CPR-HPI HPI Comments 85-year-old male is brought in by ambulance from private residence for c ardiopulmonary arrest. Significant history for CHF, CVA w/right-sided deficits, DM II, HLD, HTN, PR, and DNR with hospice care. Per EMS personnel report, family called on patient's behalf for initial chief complaint of nausea and vomiting with coffee-ground emesis production. EN route, patient went into asystole. Due to patient's DNR status that was presented to EMS personnel on scene, CPR efforts were not started. Upon arrival to ED, patient has been in asystole with for 10-15 minutes. Patient presents without a pulse. Family absence at bedside, currently. Further history is limited. Chief Complaint: Nausea/Vomiting Time Seen by MD: 23:00 Primary Care Provider: UNKNOWN Reviewed Notes: Therapy Aide Notes, Medications, Allergies Allergies: Coded Allergies: Carvedilol (Verified Allergy, Unknown, 01/30/23) Ezetimibe (Verified Allergy, Unknown, 01/30/23) Hydralazine (Verified Allergy, Unknown, 01/30/23) Isosorbide Nitrate (Verified Allergy, Unknown, 01/30/23) Lactulose (Verified Allergy, Unknown, 01/30/23) Lisinopril (Verified Allergy, Unknown, 01/30/23) Home Meds Active Scripts Cilostazol (Cilostazol) 100 Mg Tab, 1 TAB PO BID, #60 TAB 1 Refill Prov:ARLEN LANGE MD 06/23/25 Amoxicillin & Pot Clavulanate (Augmentin) 500 Mg Tab, 1 TAB PO BID, #14 TAB Prov:ARLEN LANGE MD 06/23/25 Aspirin (Aspir-81) 81 Mg Tab, 1 TAB PO DAILY, #30 TAB 1 Refill Prov:ARLEN LANGE MD 06/23/25 Nifedipine (Nifedipine Er) 90 Mg Tab, 1 TAB PO DAILY, #60 TAB 5 Refills Prov:ARLEN LANGE MD 02/01/23 Reported Medications Citalopram Hydrobromide (Citalopram) 10 Mg Tab, 20 MG PO DAILY, TAB 02/05/25 Yklrzzoxpdx-Ipphbcgcmgzd-Jcria (Trelegy Ellipta 200-62.5-25 Mcg/INH) 1 Aer Aer, 1 PUFF INH DAILY for 30 Days, #60 02/05/25 Donepezil Hydrochloride (Donepezil Hydrochloride) 10 Mg Tab, 1 TAB PO DAILY for 90 Days, #90 02/05/25 Rxaxk-5-Ippi Ethyl Esters (Kqdpc-1-Izng Ethyl Esters) 1 Gm Cap, 1 CAP PO BID for 90 Days, #180 02/05/25 Lorazepam (Lorazepam) 1 Mg Tab, 1 TAB PO DAILYP for 15 Days, #15 02/05/25 Prazosin HCl (Prazosin Hydrochloride) 2 Mg Cap, 1 CAP PO TID for 30 Days, #90 02/05/25 Irbesartan (IRBESARTAN) 300 Mg Tab, 1 TAB PO DAILY for 30 Days, #30 02/05/25 Clonidine Hydrochloride (Clonidine Hcl) 0.3 Mg Tab, 1 TAB PO TID for 90 Days, #270 02/05/25 Tirzepatide (Mounjaro) 15 Mg/0.5 Ml Inj, 15 MG SC QWEEKLY for 28 Days, #2 02/05/25 Insulin Glargine (Basaglar Kwikpen) 100 Unit/Ml Inj, 13 UNIT SC 01/31/23 Insulin Lispro (Human) (Humalog) 100 Mg/Ml Inj, 0 SC TIDWM, INJ 4 UNITS SC BS 180-220 9 UNITS SC BS ABOVE 251 07/22/15 Information Source: Emergency Med Personnel Mode of Arrival: EMS Timing: Hours Duration: Down time prior EMS: (0 minutes), Total time prior hopital: (10-15 minutes) Onset: Witnessed Available Hx: Other (See HPI/PMH) Inital rhythm: Asystole Treatment: None Response: No response Associated signs and symptoms: GI Bleeding Past Medical History PAST MEDICAL HISTORY: Anxiety, CHF, CVA (With right-sided deficits), Depression, DM (Type 2), High Lipids, HTN, PR Surgical History: Denies all surgeries Family History Family History: Reviewed,noncontributory to illness, Unknown Social History Smoker: Non-Smoker Alcohol: Denies ETOH Use Drugs: Denies Drug Use Lives In: Home, Assisted Care (On hospice) All Other Systems: Deferred Physical Exam General Appearance: Other (Pale) HEENT: Other (Pupils are fixed and dilated) Neck: None Respiratory: Other (No spontaneous respiration) Cardiovascular: Other (Pulseless) Breast Exam: Deferred Gastrointestinal: none Genitalia: Deferred Pelvic: Other (NA) Rectal: Deferred Extremities: NOT DONE Neurologic: NOT DONE Cerebellar Function: NOT DONE Reflexes: NOT DONE Skin: Other (Pale) Lymphatic: NOT DONE Was a procedure done? Was a procedure done?: No Differential Dx CPR Differential Diagnosis: Cardiopulmonary arrest, Cardiogenic shock, Dysrhythmia, Electrolyte disorder, Heart Block, Myocardial Infarction, Pulmonary Embolus, Respiratory Failure Time of 1ST Reevaluation: 23:06 Reevaluation 1ST: Patient Education/Counseling: Other (Patient ) Family Education/Counseling: Diagnosis, Other (Patient ) Comments This is a patient who is on DNR. Patient has a history of strokes. Around patient became pulses unresponsive. He is also Pancho was witnessed. Paramedics reported that the patient has been pulses for about 15 minutes or more. Bedside ultrasound shows no cardiac activities. Patient was pronounced. Family arrived and was updated. They will come in to see the patient. Additional Information Previous visits reviewed: n/a Labs ordered: n/a Images reviewed: n/a Additional historian is interviewed: EMS personnel, family Departure 1 Departure Time of Disposition: 23:06 Impression: Primary Impression: Cardiopulmonary arrest Additional Impressions: DNR (do not resuscitate) GI bleeding Disposition: 20 Condition: Other () Critical Care Note Critical Care Time?: No Heart Score Heart Score: Heart Score Response (Comments) Value History N/A 0 EKG N/A 0 Age N/A 0 Risk Factors N/A 0 Troponin N/A 0 Total 0 Stability Stability form required: No I personally scribed for JOSE NAVA MD ([email or web address]) on 09/19/25 at 23:21. Electronically submitted by Chuck Bergman ([email or web address]). I personally scribed for JOSE NAVA MD ([email or web address]) on 09/19/25 at 23:21. Electronically submitted by Chuck Bergman ([email or web address]). JOSE NAVA MD Sep 19, 2025 23:21
== END 2025-09-20 02:32 ==
LOC: ER 23:04 → EDBD 23:04 → ER 09-20 02:32
DX: I46.9 Cardiac arrest, cause unspecified (principal); Z66 Do not resuscitate; K92.2 Gastrointestinal hemorrhage, unspecified; E11.9 Type 2 diabetes mellitus without complications; E78.5 Hyperlipidemia, unspecified; F32.A Depression, unspecified; F41.9 Anxiety disorder, unspecified; I11.0 Hypertensive heart disease with heart failure; I50.9 Heart failure, unspecified; Z86.73 Personal history of transient ischemic attack (TIA), and cerebral infarction without residual deficits; Z88.8 Allergy status to other drugs, medicaments and biological substances; Z79.82 Long term (current) use of aspirin; Z79.899 Other long term (current) drug therapy